=== PATIENT | female | born 1955 | race Caucasian/White ===

== ENCOUNTER → 2016-11-30 | Outpatient (CLI) | payer MEDICAID ==
[2016-11-30 10:48] LABS: Amylase 44 U/L (30-110)
[2016-11-30 11:01] LABS: Appearance,Urine Turbid (Clear); Bacteria,Urine Rare /hpf; Bilirubin,Urine Negative (Negative); Glucose,Urine (UA) 4+ (Negative); Ketones,Urine Negative (Negative); Leukocyte Esterase,Urine Large (Negative); Nitrite,Urine Positive (Negative); Particle Count 45365; Protein,Urine Trace (Negative); RBC,Urine 30 /hpf (0-5); Specific Gravity,Urine 1.009 (1.001-1.035); UA Billing (MACRO vs. MICRO) MICRO; Urobilinogen,Urine <2.0 mg/dL (<2.0); WBC,Urine >182 /hpf (0-5)
--- NOTE | 2016-12-08 16:01 | US ---
EXAMINATION TYPE: US liver DATE OF EXAM: 11/30/2016 9:33 AM COMPARISON: None CLINICAL HISTORY: 61-year-old female abnormal liver function. Abnormal liver function test; on Lipito r TECHNIQUE: Multiple sonographic images of the right upper quadrant are obtained. FINDINGS: EXAM MEASUREMENTS: Liver Length: 13.2 cm Gallbladder Wall: Surgically absent CBD: 0.2 cm Right Kidney: 9.4 x 5.2 x4.9 cm ANATOMY Pancreas: Hyperechoic, no masses seen Liver: No masses seen the liver shows a coarse echotexture Gallbladder: Surgically absent CBD: Within normal limits Right Kidney: No hydronephrosis or masses seen There is no ascites. IMPRESSION: Findings suggestive of fatty infiltration of the liver versus hepatocellular disease.
== END ==
LOC: RADUSWWP 09:02
PROVIDERS: ATTEND Family Medicine
DX: R94.5 Abnormal results of liver function studies (principal); Z88.8 Allergy status to other drugs, medicaments and biological substances
CPT/HCPCS: 36415; 76705; 81001; 82150; 83690

== ENCOUNTER → 2016-12-14 | Outpatient (CLI) | payer MEDICAID ==
[2016-12-16 09:09] LABS: Mis test requested (Non-blood) TP 24Hr Urine
== END | disposition home or self-care (01) ==
LOC: LABWHC1 10:44
PROVIDERS: ATTEND Family Medicine
DX: R73.9 Hyperglycemia, unspecified (principal); E11.65 Type 2 diabetes mellitus with hyperglycemia; R94.4 Abnormal results of kidney function studies; R94.5 Abnormal results of liver function studies
CPT/HCPCS: 81050; 82570; 84156

== ENCOUNTER → 2016-12-15 | Outpatient (CLI) | payer MEDICAID ==
--- NOTE | 2016-12-16 07:36 | US ---
EXAMINATION TYPE: US kidneys/renal and bladder DATE OF EXAM: 12/15/2016 4:10 PM COMPARISON: Abdomen ultrasound 30 November 2016 CLINICAL HISTORY: Abn Results Kidney Functions Studies R94.4. Patient states no symptoms, obese patie nt EXAM MEASUREMENTS: Right Kidney: 10.6 x 4.9 x 5.1 cm Left Kidney: 10.4 x 5.0 x 4.0 cm Right Kidney: There may be some cortical thinning Left Kidney: Possible some cortical thinning Bladder: limited visualization, not fully distended Bilateral Jets seen: no There is no evidence for hydronephrosis at this point in time. No nephrolithiasis is seen. No radha s are identified. The urinary bladder is decompressed. IMPRESSION: Findings may be indicative of medical renal disease
== END | disposition home or self-care (01) ==
LOC: RADUSMAIN 15:47
PROVIDERS: ATTEND Family Medicine
DX: R94.4 Abnormal results of kidney function studies (principal)
CPT/HCPCS: 76770

== ENCOUNTER → 2016-12-16 | Outpatient (CLI) | payer MEDICAID ==
[2016-12-16 09:32] LABS: ALT 82 U/L (9-52); AST 79 U/L (14-36); Alkaline Phosphatase 135 U/L (38-126); Amylase <30 U/L (30-110); Anion Gap 11 mmol/L; Bilirubin, Delta 0.4 mg/dL (0.0-0.2); Blood Urea Nitrogen 33 mg/dL (7-17); Calcium 9.4 mg/dL (8.4-10.2); Carbon Dioxide 25 mmol/L (22-30); Chloride 107 mmol/L (98-107); Cholesterol 225 mg/dL (<200); Glucose 128 mg/dL (74-99); HDL Cholesterol 50 mg/dL (40-60); Non-African American GFR(MDRD) 46 (>60 ml/min/1.73 sqM); Sodium 143 mmol/L (137-145); Total Bilirubin 0.6 mg/dL (0.2-1.3); Total Protein 6.2 g/dL (6.3-8.2); Triglycerides 142 mg/dL (<150)
== END | disposition home or self-care (01) ==
LOC: LABWHC1 08:51
PROVIDERS: ATTEND Family Medicine
DX: E11.65 Type 2 diabetes mellitus with hyperglycemia (principal); R94.4 Abnormal results of kidney function studies; R94.5 Abnormal results of liver function studies
CPT/HCPCS: 36415; 80053; 80061; 82150; 82248; 83690; 84681

== ENCOUNTER → 2017-01-11 | Outpatient (CLI) | payer MEDICAID ==
--- NOTE | 2017-01-11 10:49 | XR ---
EXAMINATION TYPE: XR Hip Complete RT DATE OF EXAM ORDERED: 01/11/2017 10:37 AM HISTORY: M25.551 pain in right hip. COMPARISON: None. FINDINGS: The right hip is minimally nonspherical. There is mild overgrowth of the acetabulum. No ac carlita lesion is seen. The joint spaces reasonably well-maintained. IMPRESSION: PLEASE CORRELATE CLINICALLY FOR FEMOROACETABULAR IMPINGEMENT SYNDROME
== END | disposition home or self-care (01) ==
LOC: RADXRMAIN 10:22
PROVIDERS: ATTEND Family Medicine
DX: M25.551 Pain in right hip (principal)
CPT/HCPCS: 73502

== ENCOUNTER → 2017-01-18 | Outpatient (CLI) | payer MEDICAID ==
--- NOTE | 2017-01-19 11:19 | MM ---
Reason for exam: screening (asymptomatic). Last mammogram was performed 1 year and 9 months ago. History: Patient is postmenopausal and had first child at age 33. Family history of breast cancer in sister at age 58. Benign cyst aspiration of the left breast. Benign excisional biopsy of the left breast. Physical Findings: A clinical breast exam by your physician is recommended on an annual basis and results should be correlated with mammographic findings. MG 3D Screening Mammo W/Cad Bilateral CC and MLO view(s) were taken. Prior study comparison: April 14, 2015, right breast MG work up mamm w CAD RT. April 08, 2015, bilateral MG screening mammo w CAD. There are scattered fibroglandular densities. There is no discrete abnormality. No significant changes when compared with prior studies. ASSESSMENT: Negative, BI-RAD 1 RECOMMENDATION: Routine screening mammogram of both breasts in 1 year.
== END | disposition home or self-care (01) ==
LOC: RADMAMWWP 10:13
PROVIDERS: ATTEND Obstetrics & Gynecology
DX: Z12.31 Encounter for screening mammogram for malignant neoplasm of breast (principal)
CPT/HCPCS: 77063; G0202

== ENCOUNTER → 2017-02-02 | Outpatient (CLI) | payer MEDICAID ==
[2017-02-02 14:39] LABS: Bilirubin, Delta 0.2 mg/dL (0.0-0.2); Calcium 9.8 mg/dL (8.4-10.2); Phosphorous 4.7 mg/dL (2.5-4.5); Potassium 5.7 mmol/L (3.5-5.1); Total Bilirubin 0.4 mg/dL (0.2-1.3); Total Protein 6.6 g/dL (6.3-8.2)
[2017-02-02 15:09] LABS: Basophils % (A) 1 %; CH 30.5; CHCM 31.9; Eosinophils # (A) 0.2 k/uL (0-0.7); Eosinophils % (A) 3 %; HCT 40.4 % (34.0-46.0); HDW 2.41; HGB 12.7 gm/dL (11.4-16.0); Luc # (Auto) 0.17; Luc % (Auto) 2; Lymphocytes # (A) 1.7 k/uL (1.0-4.8); Lymphocytes % (A) 23 %; MCH 30.3 pg (25.0-35.0); MCHC 31.6 g/dL (31.0-37.0); MCV 95.8 fL (80.0-100.0); Mean Platelet Volume 7.7; Monocytes # (A) 0.5 k/uL (0-1.0); Monocytes % (A) 7 %; Neutrophils # (A) 4.8 k/uL (1.3-7.7); Neutrophils % (A) 64 %; RBC 4.21 m/uL (3.80-5.40); WBC 7.5 k/uL (3.8-10.6); WBC (Perox) 7.75
== END | disposition home or self-care (01) ==
LOC: LABWHC1 14:01
PROVIDERS: ATTEND Family Medicine
DX: R94.4 Abnormal results of kidney function studies (principal)
CPT/HCPCS: 36415; 80053; 82150; 82248; 83690; 84100; 85025

== ENCOUNTER → 2017-04-06 | Outpatient (CLI) | payer MEDICAID ==
[2017-04-06 13:00] LABS: Basophils % (A) 1 %; CH 29.9; CHCM 31.5; Eosinophils # (A) 0.2 k/uL (0-0.7); Eosinophils % (A) 4 %; HCT 38.6 % (34.0-46.0); HGB 12.1 gm/dL (11.4-16.0); Luc % (Auto) 2; Lymphocytes # (A) 1.4 k/uL (1.0-4.8); Lymphocytes % (A) 24 %; MCHC 31.5 g/dL (31.0-37.0); MCV 95.4 fL (80.0-100.0); Mean Platelet Volume 7.4; Monocytes # (A) 0.4 k/uL (0-1.0); Monocytes % (A) 7 %; Neutrophils # (A) 3.7 k/uL (1.3-7.7); Neutrophils % (A) 63 %; RBC 4.05 m/uL (3.80-5.40); RDW 13.5 % (11.5-15.5); WBC 5.8 k/uL (3.8-10.6); WBC (Perox) 6.05
[2017-04-06 13:05] LABS: Calcium 9.1 mg/dL (8.4-10.2); Potassium 4.8 mmol/L (3.5-5.1); Total Bilirubin 0.5 mg/dL (0.2-1.3); Total Protein 6.7 g/dL (6.3-8.2)
== END | disposition home or self-care (01) ==
LOC: LABWHC1 12:36
PROVIDERS: ATTEND Family Medicine
DX: E11.65 Type 2 diabetes mellitus with hyperglycemia (principal); I10 Essential (primary) hypertension; R94.4 Abnormal results of kidney function studies; R94.5 Abnormal results of liver function studies; Z79.4 Long term (current) use of insulin
CPT/HCPCS: 36415; 80053; 83036; 85025

== ENCOUNTER → 2017-06-28 | Outpatient (CLI) | payer MEDICAID ==
[2017-06-28 10:41] LABS: EKG EKG PERFORMED
[2017-06-28 11:29] LABS: Basophils % (A) 1 %; CH 30.2; Eosinophils # (A) 0.2 k/uL (0-0.7); Eosinophils % (A) 4 %; HCT 36.7 % (34.0-46.0); HDW 2.46; Luc # (Auto) 0.09; Luc % (Auto) 2; Lymphocytes # (A) 1.4 k/uL (1.0-4.8); Lymphocytes % (A) 27 %; MCH 31.1 pg (25.0-35.0); MCHC 32.8 g/dL (31.0-37.0); MCV 94.8 fL (80.0-100.0); Mean Platelet Volume 7.4; Monocytes # (A) 0.4 k/uL (0-1.0); Monocytes % (A) 7 %; Neutrophils # (A) 2.9 k/uL (1.3-7.7); Neutrophils % (A) 59 %; Partial Thromboplastin Time 22.4 sec (22.0-30.0); Prothrombin Time 10.3 sec (9.0-12.0); RBC 3.87 m/uL (3.80-5.40); RDW 12.9 % (11.5-15.5); WBC (Perox) 4.96
[2017-06-28 11:48] LABS: ALT 63 U/L (9-52); AST 74 U/L (14-36); Alkaline Phosphatase 128 U/L (38-126); Anion Gap 8 mmol/L; Blood Urea Nitrogen 23 mg/dL (7-17); Calcium 8.9 mg/dL (8.4-10.2); Carbon Dioxide 24 mmol/L (22-30); Chloride 108 mmol/L (98-107); Glucose 98 mg/dL (74-99); Magnesium 1.7 mg/dL (1.6-2.3); Non-African American GFR(MDRD) 41 (>60 ml/min/1.73 sqM); Phosphorous 4.7 mg/dL (2.5-4.5); Potassium 4.7 mmol/L (3.5-5.1); Sodium 140 mmol/L (137-145); Total Bilirubin 0.4 mg/dL (0.2-1.3); Total Protein 5.9 g/dL (6.3-8.2); Uric Acid 7.2 mg/dL (3.7-7.4)
--- NOTE | 2017-06-28 12:02 | XR ---
EXAMINATION TYPE: XR chest 2V DATE OF EXAM: 06/28/2017 COMPARISON: NONE TECHNIQUE: PA and lateral views submitted. HISTORY: Presurgical FINDINGS: The lungs are clear and there is no pneumothorax, pleural effusion, or focal pneumonia. Hypertrophi c change of the spine. Arthropathy of the shoulder. IMPRESSION: 1. No acute process.
[2017-06-28 12:56] LABS: Appearance,Urine Clear (Clear); Bilirubin,Urine Negative (Negative); Glucose,Urine (UA) Negative (Negative); Ketones,Urine Negative (Negative); Leukocyte Esterase,Urine Negative (Negative); Nitrite,Urine Negative (Negative); Protein,Urine Negative (Negative); Specific Gravity,Urine 1.007 (1.001-1.035); UA Billing (MACRO vs. MICRO) CHEM; Urobilinogen,Urine <2.0 mg/dL (<2.0)
[2017-06-28 14:04] LABS: Hemoglobin A1C 6.2 % (4.2-6.1)
[2017-06-28 18:29] LABS: Urine Creatinine 29.9 mg/dL
== END | disposition home or self-care (01) ==
LOC: LABWHC1 10:24
PROVIDERS: ATTEND Internal Medicine
DX: Z01.810 Encounter for preprocedural cardiovascular examination (principal); Z01.811 Encounter for preprocedural respiratory examination; M48.06 Spinal stenosis, lumbar region; M51.16 Intervertebral disc disorders with radiculopathy, lumbar region; N18.3 Chronic kidney disease, stage 3 (moderate); D64.9 Anemia, unspecified; E83.39 Other disorders of phosphorus metabolism; E55.9 Vitamin D deficiency, unspecified; N39.0 Urinary tract infection, site not specified; Z01.82 Encounter for allergy testing; Z01.83 Encounter for blood typing; M10.9 Gout, unspecified
CPT/HCPCS: 36415; 71020; 80053; 81003; 82043; 82306; 82570; 83036; 83735; 83970; 84100; 84550; 85025; 85610; 85730; 87070; 93005

== ENCOUNTER → 2017-07-13 | Outpatient (CLI) | payer MEDICAID ==
--- NOTE | 2017-07-14 09:25 | ECHOF ---
Referral Reason:R01.1 Cardiac Murmur MEASUREMENTS -------- HEIGHT: 167.6 cm WEIGHT: 95.3 kg BP: IVSd: 1.2 cm (0.6 - 1.1) LVIDd: 3.6 cm (3.9 - 5.3) LVPWd: 1.4 cm (0.6 - 1.1) IVSs: 1.5 cm LVIDs: 2.0 cm LVPWs: 1.3 cm LAESV Index (A-L): 24.06 ml/m Ao Diam: 3.1 cm (2.0 - 3.7) AV Cusp: 1.6 cm (1.5 - 2.6) LA Diam: 3.5 cm (2.7 - 3.8) MV E Mando: 1.02 m/s MV DecT: 219 ms MV A Mando: 0.85 m/s MV E/A Ratio: 1.20 AR PHT: 792 ms RAP: 5.00 mmHg RVSP: 18.61 mmHg FINDINGS -------- Sinus rhythm. This was a technically adequate study. There is mild concentric left ventricular hypertrophy. Overall left ventricular systolic function is normal with, an EF between 55 - 60 %. The right ventricle is normal in size and function. Normal LA size by volume 22+/-6 ml/m2. The right atrium is normal in size. Aortic valve is trileaflet and is mildly thickened. There is mild aortic regurgitation. The aortic pressure half-time by doppler is 792ms. There is no evidence of aortic stenosis. The mitral valve leaflets are mildly thickened. There is trace to mild mitral regurgitation. Trace tricuspid regurgitation present. There is no evidence of pulmonary hypertension. The right ventricular systolic pressure, as measured by Doppler, is 18.61mmHg. The pulmonic valve was not well visualized. The aortic root size is normal. Normal inferior vena cava with normal inspiratory collapse consistent with estimated right atrial pressure of 5 mmHg. The pericardium is normal. There is no pericardial effusion. CONCLUSIONS -------- 1. Sinus rhythm. 2. There is trace to mild mitral regurgitation. 3. Trace tricuspid regurgitation present. 4. There is no evidence of pulmonary hypertension. 5. The right ventricular systolic pressure, as measured by Doppler, is 18.61mmHg. 6. The pulmonic valve was not well visualized. 7. The aortic root size is normal. 8. There is no pericardial effusion. 9. This was a technically adequate study. 10. There is mild concentric left ventricular hypertrophy. 11. Overall left ventricular systolic function is normal with, an EF between 55 - 60 %. 12. Normal LA size by volume 22+/-6 ml/m2. 13. Aortic valve is trileaflet and is mildly thickened. 14. There is mild aortic regurgitation. 15. The aortic pressure half-time by doppler is 792ms. 16. The mitral valve leaflets are mildly thickened. PROFILE SHAPER OPERATOR: Salvatore Smalls RDCS
== END | disposition home or self-care (01) ==
LOC: RADECHMAIN 16:32
PROVIDERS: ATTEND Family Medicine
DX: I08.0 Rheumatic disorders of both mitral and aortic valves (principal)
CPT/HCPCS: 93306

== ENCOUNTER → 2017-11-16 | Outpatient (CLI) | payer MEDICAID | END | disposition home or self-care (01) | LOC: LABWHC1 11:37 | PROVIDERS: ATTEND Family Medicine | DX: E11.21 Type 2 diabetes mellitus with diabetic nephropathy (principal) | CPT/HCPCS: 36415; 83036 ==

== ENCOUNTER → 2017-11-16 | Outpatient (CLI) | payer MEDICAID ==
--- NOTE | 2017-11-16 12:08 | CT ---
EXAMINATION TYPE: CT lumbar spine wo con DATE OF EXAM: 11/16/2017 COMPARISON: NONE HISTORY: 62-year-old female with pain, post fusion TECHNIQUE: Contiguous axial scanning of the lumbar spine without IV contrast. Coronal and sagittal re constructions performed. CT DLP: 962 mGycm Automated exposure control for dose reduction was used. FINDINGS: No prevertebral or paravertebral soft tissue abnormality is seen. There are postsurgical changes of L4-L5 posterior and interbody fusion with corresponding laminectomi es. Possible 7.2 cm craniocaudal by 2.4 cm wide fluid collection centered within the subcutaneous fat and extending down into the laminectomy bed. This spans from the L3 spinous process down to the L5-S1 on e level. Alignment is maintained and vertebral body heights are preserved. Metal hardware artifact limits assessment of the spinal canal at the L4-L5 level. Otherwise, no large focal disc herniation is identified by CT. No significant neural foraminal stenosis seen. IMPRESSION: 1. STATUS POST L4-L5 POSTERIOR AND INTERBODY FUSION WITH CORRESPONDING LAMINECTOMIES. 2. POSSIBLE 7.2 X 2.4 CM FLUID COLLECTION EXTENDING FROM L3 DOWN THROUGH L5-S1 CENTERED WITHIN THE AVILA BCUTANEOUS FAT AND LAMINECTOMY BED. POSTOPERATIVE SEROMA OR OTHER POST OPERATIVE FLUID COLLECTION ARE IN THE DIFFERENTIAL. CORRELATE FOR ANY INFECTIOUS SIGNS/SYMPTOMS TO EXCLUDE THE POSSIBILITY OF ABSCE SS. ALSO, CORRELATE TO TIME SINCE SURGERY. 3. NO SIGNIFICANT NEUROFORAMINAL STENOSIS.
== END ==
LOC: RADCTMAIN 11:07
PROVIDERS: ATTEND Specialist
DX: M43.26 Fusion of spine, lumbar region (principal)
CPT/HCPCS: 72131

== ENCOUNTER → 2018-03-05 | Outpatient (CLI) | payer BC ==
[2018-03-05 12:18] VITALS: BP 111/60; PULSE 90; RESP 18
--- NOTE | 2018-03-05 12:31 | P.PN ---
Progress Note - Text Progress Note Date: 03/05/18 Patient returns for followup for chronic back pain with radiation to L > RLE. Patient previously underwent LESI x 3 in early 2015 with our facility but has not returned since then, as she underwent spinal fusion in June 2017. Patient continues on no regular pain medications but was recently prescribed Valium for spasms. Patient denies adverse drug effects from medications. Today , pt denies new-onset weakness, bowel/bladder incontinence, or any other signs or symptoms of cauda equina syndrome. There are no signs of acute intoxication, and no indications of medication diversion or overuse. In addition to above, 13-point review of systems is also negative for chest pain , shortness of breath, changes in vision, changes in hearing, new onset weakness , abdominal pain, diarrhea, extreme fatigue, malaise, fever, skin changes, homicidal or suicidal ideation, or bowel or bladder incontinence. Vital Signs: Reviewed in EMR Gen: WDWN, AAOx3, NAD HEENT: NCAT, EOMI, hearing grossly normal Pulm: resp unlabored Abd: soft, NT, ND Neck: supple, trachea midline ROM in flexion lumbar spine: reduced ROM in extension lumbar spine: reduced Lumbar paravertebral tenderness: + Facet loading: + bilateral, R > L SI joint tenderness: + L > R Yvan's test: L > R Straight leg raise: neg Imaging: Computed tomography scan lumbar spine dated 11/08/2017 demonstrates postsurgical changes at the L4-L5 level with metallic hardware artifact. There is no large focal disc herniation. Assessment: 1. lumbar radiculitis 2. chronic pain syndrome 3. SIJ dysfunction Plan: 1. Explanation: Opioid and psychological risk scores were reviewed. Diagnoses , prognoses, and multiple treatment options including but not limited to physical therapy, interventional therapies, adjuvant medical therapies, narcotic medication therapies, and surgery were discussed with the patient and all questions were answered to the patient's satisfaction. 2. Opioid agreement: no opioids prescribed today 3. Counseling: The patient was counseled extensively on BODY MASS INDEX, EXERCISE. Specifically, the patient was instructed regarding the importance of smoking cessation, weight control, and exercise in the context of both chronic pain and overall health. 4. Procedures: left SIJ dysfunction 5. Consultations: None 6. Investigations: UDS not done today, MAPS queried and appropriate 7. Medications: none prescribed 8. Disposition: f/u for procedure as scheduled PQRS measures: 1-Patient's medications are documented in the chart. 2-Tobacco use is negative 3-Patient has not had a pneumococcal vaccine. 4-Advanced care planning discussed, patient unable to give. 5-Opioid contract NOT signed with the patient. 6-Pain positive, follow-up visit or procedure scheduled 7-Patient's blood pressure measured and documented, and patient will follow up with the primary care due to hypertension. 8-Patient's weight was measured, and body mass index ABOVE the normal limits, and counseling was done. Patient instructed to follow up with PCP. 9-Patient WAS NOT identified as an unhealthy alcohol user.
== END | disposition home or self-care (01) ==
LOC: PNWHC3 11:52
PROVIDERS: ATTEND Anesthesiology
DX: G89.4 Chronic pain syndrome (principal); M54.9 Dorsalgia, unspecified; M54.16 Radiculopathy, lumbar region; M53.88 Other specified dorsopathies, sacral and sacrococcygeal region; Z98.1 Arthrodesis status; Z79.891 Long term (current) use of opiate analgesic
CPT/HCPCS: 99211

== ENCOUNTER → 2018-03-09 | Outpatient (CLI) | payer BC ==
--- NOTE | 2018-03-09 15:49 | XR ---
Left hip HISTORY: Left hip pain, history hip dysplasia 2 views of the left hip No comparisons Postop changes noted in the lumbar spine. Left hip shows normal bone mineralization, joint spaces, an d alignment. No fracture or dislocation. IMPRESSION: Normal left hip.
== END ==
LOC: RADXRMAIN 12:07
PROVIDERS: ATTEND Anesthesiology
DX: M16.31 Unilateral osteoarthritis resulting from hip dysplasia, right hip (principal)
CPT/HCPCS: 73502

== ENCOUNTER 2018-03-23 15:27 | Emergency (ER) | payer BC ==
[2018-03-23 16:05] VITALS: BP 159/89; PULSE 118; RESP 18; TEMP 99
--- NOTE | 2018-03-23 16:20 | ED ---
General Adult HPI - General Stated complaint: fall Time Seen by Provider: 03/23/18 15:42 Source: patient, RN notes reviewed Mode of arrival: ambulatory Limitations: no limitations - History of Present Illness Initial comments: 62-year-old female presents to the emergency department for a chief complaint of head injury 1 hour. Patient states she has physical therapy for a left frozen shoulder. She states she was walking into physical therapy when she opened the door the wind gusted and threw her into a wall where she hit her head. She then fell onto the ground and hit her buttock on the ground. Patient states she had a spinal fusion about 8 months ago in the lumbar spine. Patient states her low back is hurting. Patient denies any visual changes. She does admit to a moderate headache. Patient denies any loss of consciousness confusion nausea or vomiting. Patient denies being on blood thinners. 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 Patient has no other complaints at this time including SOB, CP, abdominal pain, nausea or vomiting. - Related Data Home Medications Medication Instructions Recorded Confirmed metFORMIN HCL 1,000 mg PO BID 09/18/16 03/23/18 Insulin Aspart [NovoLOG Flexpen] See Protocol SQ ACHS 12/22/16 03/23/18 Insulin Glargine [Lantus] 30 units SQ HS 12/22/16 03/23/18 Lisinopril [Zestril] 5 mg PO HS 12/22/16 03/23/18 Diazepam [Valium] 1 tab PO HS PRN 03/05/18 03/23/18 Lidocaine 5% Patch [Lidoderm] 1 patch TOPICAL DAILY 03/05/18 03/23/18 Acetaminophen-Codeine 300-30mg 1 - 2 tab PO Q4-6H PRN 03/22/18 03/23/18 [Tylenol w/codeine #3] Insulin Aspart [Novolog Flexpen] 5 unit SQ ACHS 03/23/18 03/23/18 Magnesium 200 mg PO HS 03/23/18 03/23/18 Allergies Allergy/AdvReac Type Severity Reaction Status Date / Time metoclopramide HCl Allergy HAD Verified 03/23/18 16:04 [From Reglan] IV-CAUSED TARDIVE DYSKINESIA sulfamethoxazole AdvReac CANNOT Verified 03/23/18 16:04 [From Bactrim] TAKE WITH METFORMIN PER PT/PER PHARMACIST trimethoprim [From Bactrim] AdvReac CANNOT Verified 03/23/18 16:04 TAKE WITH METFORMIN PER PT/PER PHARMACIST Review of Systems ROS Statement: Those systems with pertinent positive or pertinent negative responses have been documented in the HPI. ROS Other: All systems not noted in ROS Statement are negative. Past Medical History Past Medical History: Diabetes Mellitus, Hyperlipidemia, Pulmonary Embolus (PE) Additional Past Medical History / Comment(s): P.E. AT AGE 20 History of Any Multi-Drug Resistant Organisms: None Reported Past Surgical History: Section, Cholecystectomy, Orthopedic Surgery Additional Past Surgical History / Comment(s): PAIN CLINIC PROCEDURES, SHAVONNE TRIGGER RELEASE THUMB,RT KNEE SCOPE. BILAT VARICOSE VEIN STRIPPING AGE 29, spinal fusion Past Anesthesia/Blood Transfusion Reactions: No Reported Reaction Past Psychological History: No Psychological Hx Reported Smoking Status: Never smoker Past Alcohol Use History: Unable to Obtain Past Drug Use History: None Reported - Past Family History Sister(s) Family Medical History: Cancer Mother Family Medical History: No Reported History General Exam Limitations: no limitations General appearance: alert, in no apparent distress Head exam: Present: atraumatic, normocephalic, normal inspection Eye exam: Present: normal appearance, PERRL, EOMI. Absent: scleral icterus, conjunctival injection, periorbital swelling Pupils: Present: normal accommodation ENT exam: Present: normal exam, normal oropharynx, mucous membranes moist, TM's normal bilaterally, other (No segal sign, no raccoon eyes) Neck exam: Present: normal inspection, tenderness (Tenderness to the right side of the neck. No tenderness along the C-spine.). Absent: meningismus, full ROM (Patient does have some limited twisting of the neck due to "tightness"), lymphadenopathy Respiratory exam: Present: normal lung sounds bilaterally. Absent: respiratory distress, wheezes, rales, rhonchi, stridor Cardiovascular Exam: Present: regular rate, normal rhythm, normal heart sounds. Absent: systolic murmur, diastolic murmur, rubs, gallop, clicks Back exam: Present: full ROM (full flexion and extension.), tenderness (Mild lumbar and sacral tenderness), vertebral tenderness (lower lumber spinal tenderness.). Absent: paraspinal tenderness Neurological exam: Present: alert, oriented X3, CN II-XII intact, other (GCS 15) Psychiatric exam: Present: normal affect, normal mood Course Vital Signs 03/23/18 16:00 Temperature 99 F Pulse Rate 118 H Respiratory 18 Rate Blood Pressure 159/89 O2 Sat by Pulse 95 Oximetry Medical Decision Making - Medical Decision Making 62-year-old female presents to the emergency department for chief complaint of head injury 1 hour. Patient states she was walking into physical therapy when the wind lung the door open in through her into the wall. Patient had her head on the wall. Patient also fell on her tailbone. On exam patient does have some tenderness in her right lateral neck, no C-spine tenderness. No focal neuro deficits. GCS 15. Lumbosacral spine is slightly tender to palpation. CT brain and C-spine noncontrast was ordered as well as x-ray of the lumbosacral spine. CT brain shows no acute intracranial hemorrhage or midline shift. There is a small high right occipital scalp hematoma. CT C-spine shows no acute fracture or dislocation. Lumbosacral spine x-ray shows no acute fracture or dislocation in the lumbar spine. L4-L5 shows artifical disc material. Patient was given a Tylenol 3 in the emergency department patient states her headache is much better and she is feeling ready to go home. Patient is sitting up in bed at this point. She states she will not be driving as I educated her about not driving while taking Tylenol 3. Patient states she has regular Tylenol at home and does not want any other pain prescriptions. She will follow up with primary care in 1-2 days. She will return to the emergency Department if she has any worsening symptoms such as severe headache, nausea or vomiting, or confusion. Patient is a registered nurse for 40 years and is aware of these signs and agrees to come back if she notices any. Disposition Clinical Impression: Head injury Disposition: HOME SELF-CARE Condition: Good Instructions: Head Injury (ED) Additional Instructions: Please return to the emergency department if you notice any nausea or vomiting, confusion, worsening headache, or any other worsening symptoms. Otherwise follow-up with primary care provider in one to 2 days. Take the Tylenol you already have for pain relief as discussed. Is patient prescribed a controlled substance at d/c from ED?: No Referrals: Bradley Orozco MD [Primary Care Provider] - 1-2 days Time of Disposition: 17:35
[2018-03-23] MEDS ORDERED: Acetaminophen-Codeine 300-30mg TAB PO STA (16:27)
--- NOTE | 2018-03-23 16:28 | CT ---
EXAMINATION TYPE: CT brain cspine wo con DATE OF EXAM: 03/23/2018 COMPARISON: NONE HISTORY: Fall today with posterior head injury and neck pain. CT DLP: 1615 mGycm. Automated Exposure Control for Dose Reduction was Utilized. TECHNIQUE: CT scan of the head and cervical spine are performed without contrast. FINDINGS: There is no acute intracranial hemorrhage, mass effect, or midline shift identified. The ventricles and sulci are within normal limits in size. The globes are intact and the visualized sin uses are clear. There is small right occipital acute scalp hematoma axial image 39. Adjacent calvariu m is intact Cervical spine is visualized in its entirety from C1 through upper thoracic levels and demonstrates s traightened alignment without evidence of acute fracture or dislocation. Prevertebral soft tissue ap pears within normal limits. The C1-C2 articulation is within normal limits on the coronal images. Vertebral body heights are maintained. There is moderate disc space narrowing and mild to moderate sp urring at C5-C6 level. Posterior spur disc complex effaces anterior thecal sac on sagittal images con firmed on axial image 59 also causing asymmetric mild to moderate left-sided neural foraminal narrowi ng. Other axial levels are unremarkable. Thyroid gland is within normal limits. Lung apices are clear . IMPRESSION: 1. There is no acute fracture or dislocation evident in the cervical spine. 2. No acute intracranial hemorrhage or midline shift is seen. There is small high right occipital acu te scalp hematoma.
--- NOTE | 2018-03-23 16:44 | XR ---
EXAMINATION TYPE: XR lumbosacral spine min 4V DATE OF EXAM: 03/23/2018 CLINICAL HISTORY: Fall injury with pain. TECHNIQUE: Frontal, lateral, and oblique images of the lumbar spine are obtained. COMPARISON: CT lumbar spine November 16, 2017 FINDINGS: There are 5 lumbar type vertebral bodies identified. The lumbar spine shows satisfactory alignment without evidence of acute fracture or dislocation. Posterior interpedicular rods and screws transfix L4-L5 levels with artificial disc material. There is spinous process resection of the L5 an d inferior portion L4. There is persistent mild disc space narrowing L3-L4 level. There is mild to mo derate anterior spurring upper to mid lumbar spine. Oblique images are within normal limits. Overlyin g vascular calcification is present. IMPRESSION: No acute fracture or dislocation is seen in the lumbar spine.
== END 2018-03-23 17:43 | disposition home or self-care (01) ==
LOC: EC 15:27
DX: S00.03XA Contusion of scalp, initial encounter (principal); R40.2412 Glasgow coma scale score 13-15, at arrival to emergency department; R59.0 Localized enlarged lymph nodes; M54.5 Low back pain; M75.02 Adhesive capsulitis of left shoulder; E11.9 Type 2 diabetes mellitus without complications; Z79.4 Long term (current) use of insulin; Z79.899 Other long term (current) drug therapy; Z88.1 Allergy status to other antibiotic agents; Z88.8 Allergy status to other drugs, medicaments and biological substances; Z98.1 Arthrodesis status; X39.8XXA Other exposure to forces of nature, initial encounter; Y93.89 Activity, other specified; Y92.89 Other specified places as the place of occurrence of the external cause
CPT/HCPCS: 70450; 72110; 72125; 99284

== ENCOUNTER 2018-03-27 08:58 | Day surgery (SDC) | payer BC ==
[2018-03-22 13:53] VITALS: BMI 33.0
[2018-03-27] MEDS ORDERED: LACTATED RINGERS 1,000 ML IV SCH (09:15)
[2018-03-27 10:19] VITALS: TEMP 98.1
[2018-03-27] MEDS ORDERED: LIDOCAINE 1% 20 ML VIAL (10MG/ML) FOR IV START INTRADERMA ONE (10:29)
--- NOTE | 2018-03-27 11:22 | P.PCN ---
Date of Procedure: 03/27/18 Surgeon: Luiz Duran Pathology: none sent Condition: stable Disposition: PACU Description of Procedure: PREOPERATIVE DIAGNOSIS: 1-Bilateral sacroiliitis. 2 Lumbar DDD POSTOPERATIVE DIAGNOSIS:. 1-Bilateral sacroiliitis. 2 Lumbar DDD PROCEDURES: Left sacroiliac joint steroid injection with fluoroscopic guidance ANESTHESIA: Local with 1% lidocaine; conscious sedation EBL: Minimal. PROCEDURE INDICATIONS: This patient with a history of low back pain secondary to sacroiliitis and lumbar DDD unresponsive to conservative management. Patient also had recent fall and has severe tailbone pain today. No use of blood thinners. PROCEDURE DESCRIPTION: The patient was seen and identified in the preoperative area. Risks, benefits, complications, and alternatives were discussed with the patient (including but not limited to incomplete pain relief, bleeding, infection, nerve damage, and allergies to medications), the patient agreed to proceed with the procedure and signed the consent after all questions were answered. Patient was taken to the OR and time out was completed to verify proper patient , position, laterality of pain, and allergies. Pt was placed in the prone position and a pillow was placed under the abdomen to reduce lumbar lordosis. The lumbosacral area was prepped and draped in the usual sterile fashion. Critical pause was taken. Vital signs were closely monitored during the procedure. The fluoroscopic camera was placed in contralateral oblique view and left sacroiliac joint lower pole was identified. After local infiltration with 1% lidocaine 2 ml, Subsequently, a 22-gauge 3.5 inch spinal needle was introduced into the posteroinferior aspect of the left sacroiliac joint under direct fluoroscopic visualization. Subsequently, 4 ml of a solution of a total of 4 ml solution containing total 3 mL of 0.5% preservative-free bupivicaine mixed with 40 mg of Kenalog was injected after negative aspiration for CSF, blood, and air and negative for paresthesia. Needle was withdrawn intact. Skin was cleansed, and bandages were applied. COMPLICATIONS: None. COMMENTS: DISPOSITION / PLANS: The patient was placed in a supine position and transferred to the recovery area in a stable condition for observation and was discharged from the recovery room after meeting discharge criteria. Home discharge instructions given to the patient by the staff. The patient was reexamined prior to discharge and there were no issues. After the procedure, I gave patient a Medrol dose kristina for her acute tailbone pain and we will schedule ganglion of impar block for next week. Patient states that she will contact her PCP regarding potential elevation in blood sugar given steroid injection today, dose kristina, and injection scheduled for next week.
--- NOTE | 2018-03-27 11:31 | FL ---
EXAMINATION TYPE: FL guided pain mgmt statistic DATE OF EXAM: 03/27/2018 HISTORY: Flouroscopy time 8 seconds of fluoroscopy provided. IMPRESSION: 1. Fluoroscopy time.
[2018-03-27 11:50] VITALS: BP 161/78; PULSE 93; RESP 20
[2018-03-27] MEDS ORDERED: IV FLUID CONTINUATION 1,000 ML IV ONE (11:50)
== END 2018-03-27 11:58 | disposition home or self-care (01) ==
LOC: ORPAIN 08:58
PROVIDERS: ATTEND Anesthesiology
DX: G89.4 Chronic pain syndrome (principal); M46.1 Sacroiliitis, not elsewhere classified; M51.16 Intervertebral disc disorders with radiculopathy, lumbar region; Z79.899 Other long term (current) drug therapy; Z88.2 Allergy status to sulfonamides; Z88.8 Allergy status to other drugs, medicaments and biological substances
CPT/HCPCS: 27096; J2250; J3301; J3010; Q9966

== ENCOUNTER → 2018-04-24 | Outpatient (CLI) | payer BC ==
--- NOTE | 2018-04-24 16:34 | CT ---
EXAMINATION TYPE: CT pelvis wo con DATE OF EXAM: 04/24/2018 COMPARISON: NONE HISTORY: S/P spinal fusion, stabbing pain in coccyx area CT DLP: 926 mGycm Automated exposure control for dose reduction was used. TECHNIQUE: Axial images 5 mm thick sections. Reconstructed images in the coronal plane. FINDINGS: Femoral heads articulate with the acetabulum. Mild joint space narrowing is present. Pedicle screws a re evident L4-L5. The right L5 pedicle screw extends out of the anterior cortical margin of the verte bral body. Series 4 image 34. Correlate for right side pain. Disc spacer is present L4-5. Mild narrow ing of the L5-S1 disc height may be present. Sacroiliac joint degenerative change. Sacrum: The sacrum appears intact. No acute fractures are evident. No suspicious osseous abnormality is evident. Intra-abdominal soft tissues appear unremarkable. The appendix is normal. Loops of bowel are unremark able. The inferior portions of the kidneys visualized are unremarkable. Vascular calcification is wit hin the aorta. Inferior vena cava is unremarkable. Urinary bladder is normal. Uterus and adnexal hina ons appear normal. IMPRESSION: 1. THERE IS SOME EXTENSION OF THE RIGHT L5 PEDICLE SCREW OUT THROUGH THE ANTERIOR CORTEX OF THE VERTE BRAL BODY. THIS IS OF UNCERTAIN CLINICAL SIGNIFICANCE. 2. SUSPICIOUS ABNORMALITY TO ACCOUNT FOR THE PATIENT'S PAIN IS NOT OTHERWISE IDENTIFIED.
== END | disposition home or self-care (01) ==
LOC: RADCTMAIN 12:53
PROVIDERS: ATTEND Specialist
DX: M53.3 Sacrococcygeal disorders, not elsewhere classified (principal)
CPT/HCPCS: 72192

== ENCOUNTER → 2018-05-15 | Outpatient (CLI) | payer BC ==
--- NOTE | 2018-05-15 11:49 | CT ---
EXAMINATION TYPE: CT pelvis wo con DATE OF EXAM: 05/15/2018 COMPARISON: CT pelvis April 24, 2018 HISTORY: Rescanned for Sacrococcygeal disorders CT DLP: 798.4 mGycm Automated exposure control for dose reduction was used. FINDINGS: Repeat CT pelvis is performed due to ordering physician request for sagittal reconstructed images whi ch were not performed on original study. Patient is not to be charged for current exam. Please refer to original CT report for complete details on findings. No suspicious new findings are identified on today's study. IMPRESSION: ABOVE
== END | disposition home or self-care (01) ==
LOC: RADCTMAIN 11:19
PROVIDERS: ATTEND Specialist
DX: M53.3 Sacrococcygeal disorders, not elsewhere classified (principal)

== ENCOUNTER → 2019-01-11 | Outpatient (CLI) | payer BC ==
[2019-01-11 12:18] LABS: HCT 42.3 % (34.0-46.0); HGB 12.9 gm/dL (11.4-16.0); Hypochromasia Slight; MCH 29.6 pg (25.0-35.0); MCHC 30.5 g/dL (31.0-37.0); MCV 97.1 fL (80.0-100.0); Mean Platelet Volume 7.9; Platelet Count 206 k/uL (150-450); RBC 4.36 m/uL (3.80-5.40); RDW 13.4 % (11.5-15.5); WBC 6.7 k/uL (3.8-10.6)
[2019-01-11 13:39] LABS: Appearance,Urine Cloudy (Clear); Bacteria,Urine Occasional /hpf; Bilirubin,Urine Negative (Negative); Blood,Urine Negative (Negative); Color,Urine Yellow; Glucose,Urine (UA) 4+ (Negative); Ketones,Urine Negative (Negative); Leukocyte Esterase,Urine Large (Negative); Mucus,Urine Rare /hpf; Nitrite,Urine Negative (Negative); PH, Urine 5.5 (5.0-8.0); Protein,Urine Negative (Negative); Specific Gravity,Urine 1.008 (1.001-1.035); Squamous Epithelial Cell,Urine 6 /hpf (0-4); Urobilinogen,Urine <2.0 mg/dL (<2.0); WBC,Urine 44 /hpf (0-5)
[2019-01-11 17:12] LABS: Iron Saturation 14.29 (12.00-45.00)
[2019-01-11 17:19] LABS: Parathyroid Hormone Intact 82.8 pg/mL (14.0-72.0)
[2019-01-11 17:25] LABS: Vitamin D 25 Hydroxy 15.5 ng/mL (30.0-100.0)
[2019-01-11 17:39] LABS: Albumin/Globulin Ratio 1.9 (1.60-3.17); Anion Gap 6.8 mmol/L (4.00-12.00); Calcium 8.9 mg/dL (8.7-10.3); Carbon Dioxide 23.2 mmol/L (21.6-31.8); Globulin 2.1 g/dL (1.6-3.3); Magnesium 1.7 mg/dL (1.5-2.4); Phosphorus 3.6 mg/dL (2.4-5.1); Total Bilirubin 0.3 mg/dL (0.3-1.2); Total Protein 6.1 g/dL (6.2-8.2); Uric Acid 6.6 mg/dL (2.9-7.7)
== END | disposition home or self-care (01) ==
LOC: LABWHC1 11:08
PROVIDERS: ATTEND Internal Medicine
DX: N39.0 Urinary tract infection, site not specified (principal); N18.3 Chronic kidney disease, stage 3 (moderate); D63.1 Anemia in chronic kidney disease; E21.3 Hyperparathyroidism, unspecified; E55.9 Vitamin D deficiency, unspecified; M10.9 Gout, unspecified
CPT/HCPCS: 36415; 80053; 81001; 82043; 82306; 82570; 82728; 83540; 83550; 83735; 83970; 84100; 84550; 85027

== ENCOUNTER → 2019-03-29 | Outpatient (CLI) | payer BC ==
--- NOTE | 2019-03-29 12:59 | XR ---
EXAM TYPE: LUMBAR SPINE X RAY SERIES COMPARISON: 03/23/2018 HISTORY: Pain TECHNIQUE: 4 views are submitted. FINDINGS: There are 5 lumbar type vertebral bodies identified. The lumbar spine shows satisfactory alignment wi thout evidence of acute fracture or dislocation. Posterior interpedicular rods and screws transfix L4 -L5 levels with artificial disc material. Multilevel mild degenerative disc disease and hypertrophic spurring noted. There is mild to moderate anterior spurring upper to mid lumbar spine. Overlying vascular calcification is present. IMPRESSION: 1. Stable postsurgical changes.
== END | disposition home or self-care (01) ==
LOC: RADXRMAIN 12:29
PROVIDERS: ATTEND Family Medicine
DX: M43.26 Fusion of spine, lumbar region (principal); M25.78 Osteophyte, vertebrae; Z98.890 Other specified postprocedural states
CPT/HCPCS: 72110

== ENCOUNTER → 2019-04-01 | Outpatient (CLI) | payer BC ==
[2019-04-01 16:31] LABS: Basophils % (A) 1 %; Eosinophils # (A) 0.2 k/uL (0-0.7); Eosinophils % (A) 2 %; HCT 39.7 % (34.0-46.0); HGB 12.3 gm/dL (11.4-16.0); Lymphocytes # (A) 1.4 k/uL (1.0-4.8); Lymphocytes % (A) 17 %; MCH 29.1 pg (25.0-35.0); MCHC 31.1 g/dL (31.0-37.0); MCV 93.4 fL (80.0-100.0); Mean Platelet Volume 7.9; Monocytes # (A) 0.5 k/uL (0-1.0); Monocytes % (A) 6 %; Neutrophils # (A) 5.8 k/uL (1.3-7.7); Neutrophils % (A) 73 %; Platelet Count 232 k/uL (150-450); RBC 4.24 m/uL (3.80-5.40); RDW 14.1 % (11.5-15.5); WBC 7.9 k/uL (3.8-10.6)
[2019-04-01 16:36] LABS: Appearance,Urine Clear (Clear); Bilirubin,Urine Negative (Negative); Blood,Urine Negative (Negative); Color,Urine Light Yellow; Glucose,Urine (UA) Negative (Negative); Ketones,Urine Negative (Negative); Leukocyte Esterase,Urine Small (Negative); Mucus,Urine Rare /hpf; Nitrite,Urine Negative (Negative); PH, Urine 5.5 (5.0-8.0); Protein,Urine Negative (Negative); RBC,Urine 1 /hpf (0-5); Specific Gravity,Urine 1.015 (1.001-1.035); Squamous Epithelial Cell,Urine <1 /hpf (0-4); Urobilinogen,Urine <2.0 mg/dL (<2.0); WBC,Urine 5 /hpf (0-5)
[2019-04-01 23:44] LABS: Iron Saturation 13.29 (12.00-45.00)
[2019-04-02 00:14] LABS: Albumin 3.8 g/dL (3.80-4.90); Albumin/Globulin Ratio 2.38 (1.60-3.17); Anion Gap 8.2 mmol/L (4.00-12.00); Calcium 8.4 mg/dL (8.7-10.3); Carbon Dioxide 23.8 mmol/L (21.6-31.8); Globulin 1.6 g/dL (1.6-3.3); Magnesium 1.8 mg/dL (1.5-2.4); Phosphorus 5.1 mg/dL (2.4-5.1); Potassium 5.1 mmol/L (3.5-5.5); Total Bilirubin 0.2 mg/dL (0.3-1.2); Total Protein 5.4 g/dL (6.2-8.2); Uric Acid 7.9 mg/dL (2.9-7.7)
[2019-04-02 00:21] LABS: Parathyroid Hormone Intact 101.9 pg/mL (14.0-72.0)
== END | disposition home or self-care (01) ==
LOC: LABWHC1 15:34
PROVIDERS: ATTEND Nurse Practitioner Family
DX: N39.0 Urinary tract infection, site not specified (principal); M10.9 Gout, unspecified; R80.9 Proteinuria, unspecified; N18.3 Chronic kidney disease, stage 3 (moderate); E61.1 Iron deficiency; N25.81 Secondary hyperparathyroidism of renal origin; E55.9 Vitamin D deficiency, unspecified
CPT/HCPCS: 36415; 80053; 81001; 82043; 82306; 82570; 82728; 83540; 83550; 83735; 83970; 84100; 84550; 85025

== ENCOUNTER → 2019-04-17 | Outpatient (CLI) | payer BC ==
--- NOTE | 2019-04-17 11:50 | MR ---
EXAMINATION TYPE: MR lumbar spine wo/w con DATE OF EXAM: 04/17/2019 COMPARISON: Plain film 03/29/2019, prior lumbar MRI 10/26/2015, CT lumbar spine 11/16/2017 HISTORY: Osteophyte, vertebrae TECHNIQUE: Multiplanar, multisequence images of the lumbar spine were acquired utilizing 10 mL intravenous Gadav ist gadolinium contrast. L1-L2: Normal disc appearance without desiccation. No herniation, protrusion or disc bulging. No ca nal stenosis is present. Foramina are patent bilaterally. L2-L3: There is a circumferential disc bulge which extends towards the right causing mild foraminal e ncroachment. No significant central stenosis. L3-L4: Posterior circumferential disc bulge contacts the anterior thecal sac causes some mass effect. There is hypertrophic changes present with ligamentum flavum causing local mass effect and resulting in a trefoil appearance of the thecal sac. No significant foraminal encroachment. L4-L5: Minimal posterior disc bulge, no significant spinal stenosis. No significant foraminal encroac hment. Some mild enhancement of the posterior aspect of the disc is likely postoperative. L5-S1: Small broad-based posterior disc bulge is present. Some enhancement of the posterior aspect of the disc is noted, there may be a small annular tear, some focal increased signal noted on T2-weight ed sequences. No significant spinal stenosis or foraminal encroachment. Lumbar segments are intact. No paraspinal masses are identified. Conus medullaris has a normal appe arance. Patient is status post posterior lumbar fusion at L4-5 with intervertebral spacing block. Flores inectomies present at L5. Posterior to L4-5 surgical site and thecal sac there is T1 intermediate, T2 hyperintense signal present with some enhancement of the surrounding wall at the level of the wharf helper ior aspect of the thecal sac where the collection measures approximately 2.7 cm in transverse dimensi on by 1.2 cm in AP dimension by 2.6 cm in cephalad to caudal dimension, there are some internal septa tions. Within the subcutaneous fat superficial to the transverse process of L4 there is an additional collection measuring 3 cm in cephalad to caudal dimension by 2 cm in AP dimension by 1.8 cm in trans verse dimension with similar characteristics. There is artifact at this level however the collections may communicate. Enhancement of granulation tissue. To be present along the paraspinal musculature a nd surgical bed. Cervical vertebral bodies show preserved height and alignment. There is multilevel s pondylosis. Minimal endplate discogenic marrow signal changes are present. Loss of disc height and si gnal at intervertebral levels compatible disc desiccation and degenerative disc disease. IMPRESSION: Indeterminate postoperative fluid signal posterior to the thecal sac at L4-5 extending to the soft ti ssues may represent seroma or old hematoma, correlate to exclude infection. Postop changes. Some dege nerative changes, facet arthropathy resulting in a trefoil appearance of the thecal sac at L3-4. Dege nerative disc disease as described.
== END | disposition home or self-care (01) ==
LOC: RADMRIMAIN 08:38
PROVIDERS: ATTEND Nurse Practitioner Women's Health
DX: M51.36 Other intervertebral disc degeneration, lumbar region (principal); M47.816 Spondylosis without myelopathy or radiculopathy, lumbar region; M46.96 Unspecified inflammatory spondylopathy, lumbar region; Z98.890 Other specified postprocedural states
CPT/HCPCS: 72158; A9585

== ENCOUNTER → 2019-07-25 | Outpatient (CLI) | payer MEDICARE ==
[2019-07-25 11:33] LABS: HCT 37.6 % (34.0-46.0); HGB 12.1 gm/dL (11.4-16.0); MCH 30.4 pg (25.0-35.0); MCHC 32.3 g/dL (31.0-37.0); MCV 94.4 fL (80.0-100.0); Mean Platelet Volume 8.1; Platelet Count 206 k/uL (150-450); RBC 3.98 m/uL (3.80-5.40); RDW 14.4 % (11.5-15.5); WBC 5.7 k/uL (3.8-10.6)
[2019-07-25 11:45] LABS: Appearance,Urine Cloudy (Clear); Bacteria,Urine Many /hpf; Bilirubin,Urine Negative (Negative); Blood,Urine Negative (Negative); Color,Urine Yellow; Glucose,Urine (UA) Negative (Negative); Ketones,Urine Trace (Negative); Leukocyte Esterase,Urine Large (Negative); Mucus,Urine Rare /hpf; Nitrite,Urine Positive (Negative); PH, Urine 5.5 (5.0-8.0); Protein,Urine Negative (Negative); RBC,Urine 5 /hpf (0-5); Specific Gravity,Urine 1.011 (1.001-1.035); Squamous Epithelial Cell,Urine 5 /hpf (0-4); Urobilinogen,Urine <2.0 mg/dL (<2.0); WBC,Urine 42 /hpf (0-5)
[2019-07-25 16:15] LABS: Iron Saturation 17.43 (12.00-45.00)
[2019-07-25 16:23] LABS: Vitamin D 25 Hydroxy 35.6 ng/mL (30.0-100.0)
[2019-07-25 16:25] LABS: African American GFR (CKD) 42.2 (60.0-200.0); Albumin 3.7 g/dL (3.80-4.90); Albumin/Globulin Ratio 2.18 (1.60-3.17); Anion Gap 6.7 mmol/L (4.00-12.00); Calcium 8.3 mg/dL (8.7-10.3); Carbon Dioxide 24.3 mmol/L (21.6-31.8); Globulin 1.7 g/dL (1.6-3.3); Magnesium 1.7 mg/dL (1.5-2.4); Phosphorus 3.5 mg/dL (2.4-5.1); Potassium 4.7 mmol/L (3.5-5.5); Total Bilirubin 0.3 mg/dL (0.3-1.2); Total Protein 5.4 g/dL (6.2-8.2); Uric Acid 7.2 mg/dL (2.9-7.7)
== END | disposition home or self-care (01) ==
LOC: LABWHC1 10:46
PROVIDERS: ATTEND Nurse Practitioner Family
DX: E79.0 Hyperuricemia without signs of inflammatory arthritis and tophaceous disease (principal); N25.81 Secondary hyperparathyroidism of renal origin; E55.9 Vitamin D deficiency, unspecified; E61.1 Iron deficiency; D63.1 Anemia in chronic kidney disease; N18.3 Chronic kidney disease, stage 3 (moderate); E55.0 Rickets, active; M10.9 Gout, unspecified
CPT/HCPCS: 36415; 80053; 81001; 82043; 82306; 82570; 82728; 83540; 83550; 83735; 83970; 84100; 84550; 85027

== ENCOUNTER → 2019-08-14 | Outpatient (CLI) | payer MEDICARE ==
--- NOTE | 2019-08-14 15:19 | NM ---
EXAMINATION TYPE: NM bone scan whole body DATE OF EXAM: 08/14/2019 COMPARISON: X-ray 03/29/2019 HISTORY: Pain Delayed whole-body scanning was performed following the injection of 22.7 mCi Tc 99m MDP. Images acq uired 3.25 hours post injection. FINDINGS: There is mild intensity uptake seen throughout the thoracic and lower lumbar spine likely degenerativ e. Abnormal uptake involving the feet, knees and shoulders likely is post arthritic. IMPRESSION: 1. Mild intensity uptake involving the lower lumbar spine likely corresponds with postsurgical change s. Abnormal uptake in the mid to lower thoracic spine most likely is degenerative. If there is concer n for discitis this would require postcontrast MRI for further evaluation.
== END | disposition home or self-care (01) ==
LOC: RADNMMAIN 09:54
DX: M47.817 Spondylosis without myelopathy or radiculopathy, lumbosacral region (principal); R94.8 Abnormal results of function studies of other organs and systems
CPT/HCPCS: 78306; A9503

== ENCOUNTER → 2019-08-28 | Outpatient (CLI) | payer MEDICARE ==
[2019-08-28 11:44] VITALS: BP 152/68; PULSE 72; RESP 18
--- NOTE | 2019-08-29 13:28 | P.PAINPG ---
Subjective Progress Note Date: 08/28/19 Patient returns for followup for chronic back pain. She was last seen in our clinic in March 2018 at which time she underwent a left SI joint injection. She has not followed up since then. Patient previously underwent LESI x 3 in early 2015 with our facility and subsequently she underwent spinal fusion in June 2017. Today, her primary pain complaint is low back pain and right lateral hip pain. Her back pain is worse than her lateral hip pain. Pain is rated as 6 out of 10, worse with walking, gardening, shopping, cutting grass and better with resting, ice, use of medications like when necessary Valium, Tylenol 3 and Tylenol arthritis. Her pain is particularly worse on standing up from a bent position. This pain has been present since prior to her surgery in June 2017. She states that it "grabs her." She does endorse subjective right leg weakness. She denies numbness and tingling. She states that her sleep has been affected by the pain. Today, pt denies new-onset bowel/bladder incontinence, or any other signs or symptoms of cauda equina syndrome. There are no signs of acute intoxication, and no indications of medication diversion or overuse. In addition to above, 13-point review of systems is also negative for chest pain, shortness of breath, changes in vision, changes in hearing, new onset weakness, abdominal pain, diarrhea, extreme fatigue, malaise, fever, skin changes, homicidal or suicidal ideation, or bowel or bladder incontinence. Physical exam: Vitals: Reviewed in EMR GENERAL: Well appearing, in no acute distress, obese PSYCH: Mood and affect is appropriate. Awake, alert, and oriented SKIN: Skin color, texture, turgor normal, no rashes or lesions HEENT: Normocephalic, atraumatic. EOM intact CV: No pedal edema RESP: Respirations are unlabored, no audible wheezing GI: Abdomen non-distended MUSCULOSKELETAL: Bilateral lower extremity strength is normal and symmetric. No atrophy or tone abnormalities are noted. Lumbar spine: Straight leg raising in the sitting position is negative for radicular pain. Tenderness to palpation over the lumbar spine and paraspinous muscles bilaterally. Positive for pain with facet loading and back extension/rotation. Pain is particularly worse on lumbar extension from a flexed position. Buttocks: No pain to palpation over the PSIS, sacroiliac joint maneuvers are negative for pain. Tenderness to palpation over right greater trochanter. Extremities: Peripheral joint ROM is full and pain free without obvious instability or laxity in all four extremities. No edema or skin discolorations noted. Gait: Gait is slow, antalgic NEUR: Bilateral lower extremity coordination and muscle stretch reflexes are physiologic and symmetric. Negative clonus bilaterally. No loss of sensation is noted. Imaging: Computed tomography scan lumbar spine dated 11/08/2017 demonstrates postsurgical changes at the L4-L5 level with metallic hardware artifact. There is no large focal disc herniation. Bone scan done at [facility] on 08/14/2019 shows mild intensity uptake throughout the thoracic and lower lumbar spine likely degenerative. Assessment: 1. lumbar degenerative disc disease, lumbar spondylosis 2. chronic pain syndrome 3. SIJ dysfunction Plan: 1. Explanation: Opioid and psychological risk scores were reviewed. Diagnoses, prognoses, and multiple treatment options including but not limited to physical therapy, interventional therapies, adjuvant medical therapies, and surgery were discussed with the patient and all questions were answered to the patient's satisfaction. 2. Opioid agreement: no opioids prescribed today 3. Counseling: The patient was counseled on BODY MASS INDEX, EXERCISE. Specifically, the patient was instructed regarding the importance of weight control, and exercise in the context of both chronic pain and overall health. 4. Procedures: We will first schedule right greater trochanter steroid injection. Following this, we will schedule Bilateral Medial branch block for facets L3-4 and L5-S1. Patient is fused L4-5. (Medial branches at the transver se processes of L2, L 3, L 5 and sacral ala) 2. If patient expresses significant benefit from this, would proceed with radiofrequency ablation in the future. 5. Consultations: None 6. Investigations: None 7. Medications: none prescribed 8. Disposition: f/u for procedure as scheduled PQRS Measure Charge Sheet Measure #130: Documentation of Current Meds in Medical Chart: Patient's medications documented in chart Measure #226: Tobacco Use: Screen & Cessation Intervention: Pt not a tobacco user Measure #111: Pneumonia Vaccination: Pneumococcal vaccine NOT administered or previously given Measure #47: Advance Care Plan: Advance care planning discussed & documented, pt chose/unable to give Measure #412: Opioid Treatment Agreement: No documentation of signed opioid treatment agreement Measure #317: Preventitive Care & Scrn High Bld Press & F/U: Pre-hypertensive or hypertensive BP documented, pt will f/u with PCP Measure #128: Body Mass Index (BMI) Screening & Follow-up: BMI documented ABOVE normal parameters - f/u documented Measure #131: Pain Assessment & Follow-up: Pain positive & plan documented, Follow-up scheduled Measure #431: Unhealthy Alcohol Use Preventative Care & Scrn: Patient not identified as an unhealthy alcohol user PQRS Narrative: Smoking Status Never smoker Pain Intensity [Back] 2 Scale Used Numeric (1 - 10) Hx Alcohol Use (MH) No Home Medications: Ambulatory Orders Insulin Aspart [NovoLOG Flexpen] See Protocol SQ ACHS 12/22/16 Insulin Glargine [Lantus] 38 units SQ HS 12/22/16 Diazepam [Valium] 1 tab PO HS PRN 03/05/18 Lidocaine 5% Patch [Lidoderm] 1 patch TOPICAL DAILY PRN 03/05/18 Acetaminophen-Codeine 300-30mg [Tylenol w/codeine #3] 1 - 2 tab PO Q4-6H PRN 03/22/18 Insulin Aspart [Novolog Flexpen] 5 unit SQ ACHS 03/23/18 Allopurinol [Zyloprim] 100 mg PO DAILY 08/22/19 Bisoprolol [Zebeta] 5 mg PO DAILY 08/22/19 Ergocalciferol [Vitamin D2] 50,000 unit PO AVILA 08/22/19 Ferrous Sulfate [Feosol] 325 mg PO DAILY 08/22/19 Gabapentin [Neurontin] 300 mg PO TID 08/22/19 Melatonin 10 mg PO HS 08/22/19 Saline Eye Drops 2 drops BOTH EYES DAILY 08/22/19 sitaGLIPtin PHOS/metFORMIN HCL [Janumet Xr 50-1,000 mg Tablet] 1 each PO DAILY 08/22/19 Controlled Substance Measures - Controlled Substance Measures Is patient prescribed a controlled substance at discharge?: No
== END | disposition home or self-care (01) ==
LOC: PNWHC3 11:31
PROVIDERS: ATTEND Anesthesiology
DX: G89.29 Other chronic pain (principal); M51.36 Other intervertebral disc degeneration, lumbar region; M47.816 Spondylosis without myelopathy or radiculopathy, lumbar region; M53.3 Sacrococcygeal disorders, not elsewhere classified; M43.26 Fusion of spine, lumbar region; M25.559 Pain in unspecified hip; R53.1 Weakness; Z79.4 Long term (current) use of insulin; Z79.84 Long term (current) use of oral hypoglycemic drugs; Z79.899 Other long term (current) drug therapy
CPT/HCPCS: 99211

== ENCOUNTER 2019-09-09 06:21 | Day surgery (SDC) | payer MEDICARE ==
[2019-09-09 06:41] VITALS: TEMP 96.8
[2019-09-09] MEDS ORDERED: LIDOCAINE 1% 20 ML VIAL (10MG/ML) FOR IV START INTRADERMA ONE (06:42)
[2019-09-09] MEDS ORDERED: LACTATED RINGERS 1,000 ML IV ONE (06:42)
[2019-09-09 06:43] LABS: Glucose,Whole Blood 104 mg/dL (75-99)
[2019-09-09] MEDS ORDERED: LACTATED RINGERS 1,000 ML IV SCH (07:00)
[2019-09-09] MEDS ORDERED: IV FLUID CONTINUATION 1,000 ML IV ONE (07:29)
[2019-09-09 07:44] VITALS: BP 123/77; PULSE 68; RESP 16
--- NOTE | 2019-09-09 09:01 | P.PCN ---
Date of Procedure: 09/09/19 Description of Procedure: Diagnostic Lumbar Medial Branch Block L2-3, L3-4, L5-S1 Date of the procedure: PREOPERATIVE DIAGNOSIS: Lumbar Facet Arthropathy, lumbar postlaminectomy syndrome POSTOPERATIVE DIAGNOSIS: Lumbar Facet Arthropathy, lumbar postlaminectomy syndrome PROCEDURE: Diagnostic bilateral L2-L3, L3-L4, L5-S1 medial branch block under fluoroscopy. Surgeon: Felipe Unger MD ANESTHESIA: Local with 1% lidocaine; IV sedation with Versed 2mg and Fentanyl 2 ml. EBL: Minimal COMPLICATION: None. IV FLUIDS: 100 mL of normal saline. PROCEDURE INDICATION: Chronic low back pain secondary to Facet arthropathy, status post fusion L4-L5, unresponsive to conservative treatment. PROCEDURE DESCRIPTION: The patient was seen and identified in the preoperative area. Risks, benefits, complications, and alternatives were discussed with the patient. The patient agreed to proceed with the procedure and signed the consent. IV was started. Vital signs were stable throughout the procedure. The patient was taken to the procedure room and was placed in the prone position on the procedure table. The lumbosacral area was prepped and draped in the usual sterile fashion. Critical pause was taken. Using right/left oblique fluoroscopy, the junction transverse process and the superior articular process of the L2, L3, L5 vertebra, which correspond to the fluoroscopic image of the "eye of the Kranthi dog", and the block site of the L2 medial branch, was identified. Subsequently, a 25-gauge, 3.5-inch spinal needle was advanced under fluoroscopic guidance until contact was made with periosteum. At this point, 1 mL of block solution containing a mixture of Depomedrol 40 mg and 5 mL of 0.5% preservative-free ropivacaine was injected after negative aspiration for blood and CSF and blood and in the absence of paresthesias. The needle was subsequently removed and the same procedure was repeated at the levels of L3 and sacral ala bilaterally. At the end of the procedure, skin was cleansed, and bandages were applied. The patient tolerated the procedure well without complications. Patient was observed in the recovery area until he/she met all discharge criteria. Disposition: Repeat in 2 weeks. Bilateral L2-3, L3-4, L5-S1 Medial branches.
--- NOTE | 2019-09-09 16:25 | FL ---
Fluoroscopy HISTORY: Pain 34 seconds fluoroscopy time supplied to the referring clinician. 5 intraoperative C-arm images docum ent the procedure. See dictated report from anesthesia.
== END 2019-09-09 08:01 | disposition home or self-care (01) ==
LOC: ORPAIN 06:21
PROVIDERS: ATTEND Anesthesiology
DX: M96.1 Postlaminectomy syndrome, not elsewhere classified (principal); M47.816 Spondylosis without myelopathy or radiculopathy, lumbar region; E11.9 Type 2 diabetes mellitus without complications; Z88.2 Allergy status to sulfonamides; Z88.8 Allergy status to other drugs, medicaments and biological substances
CPT/HCPCS: 64493; 64494; 64495; J2250; J3010; 99152

== ENCOUNTER 2019-09-23 06:00 | Day surgery (SDC) | payer MEDICARE ==
[2019-09-19 15:32] VITALS: BMI 37.9
[2019-09-23] MEDS ORDERED: LACTATED RINGERS 1,000 ML IV SCH (06:07)
[2019-09-23 06:23] VITALS: PULSE 68; RESP 16; TEMP 97.1
[2019-09-23] MEDS ORDERED: LIDOCAINE 1% 20 ML VIAL (10MG/ML) FOR IV START INTRADERMA ONE (06:32)
[2019-09-23 06:34] LABS: Glucose,Whole Blood 87 mg/dL (75-99)
[2019-09-23] MEDS ORDERED: IV FLUID CONTINUATION 1,000 ML IV ONE (07:30)
--- NOTE | 2019-09-23 07:35 | P.PCN ---
Date of Procedure: 09/23/19 Procedure(s) Performed: PREOPERATIVE DIAGNOSIS : Lumbar spondylosis with Facet Arthropathy without myelopathy POSTOPERATIVE DIAGNOSIS: same PROCEDURE: Second Diagnostic lumbar medial branch block with fluoroscopy at the transverse process of L2, L3 and sacral ala [bilateral] which covers facets L34 and L5-S1 ANESTHESIA: Local anesthetic; moderate IV sedation with Versed 2 mg, sedation time 15 minutes Fluoroscopy was used for the procedure and images were saved in the radiology portion of the chart. Surgeon: Srinivasa Rubio MD PROCEDURE INDICATION: Lumbar back pain without radiculopathy, not responsive to conservative management. PROCEDURE DESCRIPTION: the patient was seen and identified in the preop holding area , risks and benefits and possible complications of the procedure and alternatives were discussed with the patient, and the patient agreed to proceed with the procedure and signed the consent . IV was started , vital signs were monitored during the procedure and fluoroscopy was used to maximize the benefit and accuracy of the needle placement, and sedation was given to decrease patient anxiety. Patient was taken to the procedure room and placed in prone position. The lumbar region was prepped using chlorhexidineX-2. Under strict sterile technique using AP fluoroscopy the bilateral sacral ala were identified and using ipsilateral oblique fluoroscopy ,the junction of the transverse process and the superior articulating process of the L2, L3 vertebra which co rresponds to the fluoroscopy image of the eye of the Kranthi dog for the medial branches were identified. Subsequently, after local infiltration of skin with lidocaine 1% 0.2 mL at each level , a 22-gauge 5 inch Quincke-type needle was placed at the junction of the base of the transverse process and the superior articular process at the appropriate level as well as the sacral ala, and the needle was advanced until the periosteum contacted, needle placement confirmed with AP and oblique fluoroscopy, 0.2 mL of Isovue 200 per level was injected which revealed no vascular uptake and after negative aspiration, 0.5 mL of lidocaine 4 % was injected at each level and the needle subsequently removed . At the end of the procedure and the needles were removed and a bandage applied after the skin was cleaned. The patient was taken to recovery room in stable condition and monitors in the recovery room for 20-30 minutes and discharged home in stable condition after discharge criteria met and patient will follow up in clinic in 2 weeks Note: Due to fusion at L4-5, the L4 medial branch (at transverse process of L5) was not able to be visualized, and hence not performed. EBL: Minimal COMPLICATION: None.
[2019-09-23 07:49] VITALS: BP 123/66
[2019-09-23 07:58] LABS: Glucose,Whole Blood 82 mg/dL (75-99)
--- NOTE | 2019-09-23 10:14 | FL ---
EXAMINATION TYPE: FL guided pain mgmt statistic DATE OF EXAM: 09/23/2019 HISTORY: Flouroscopy time 4 seconds of fluoroscopy provided. IMPRESSION: 1. Fluoroscopy time.
== END 2019-09-23 08:03 | disposition home or self-care (01) ==
LOC: ORPAIN 06:00
PROVIDERS: ATTEND Anesthesiology
DX: G89.4 Chronic pain syndrome (principal); M47.816 Spondylosis without myelopathy or radiculopathy, lumbar region; M53.3 Sacrococcygeal disorders, not elsewhere classified; Z78.0 Asymptomatic menopausal state; Z98.1 Arthrodesis status; Z79.4 Long term (current) use of insulin; Z79.899 Other long term (current) drug therapy
CPT/HCPCS: 64493; 64494; J2250; Q9966; 99152

== ENCOUNTER → 2019-10-03 | Outpatient (CLI) | payer MEDICARE ==
[2019-10-03 13:45] VITALS: BP 143/83; PULSE 72; RESP 16
--- NOTE | 2019-10-08 13:54 | P.PAINPG ---
Subjective Progress Note Date: 10/03/19 Patient returns for followup for chronic back pain. She recently underwent bilateral lumbar medial branch blocks 2 and returns today for follow-up. She reports 100% pain relief, and is still experiencing benefit from these blocks. She does still have right greater trochanter pain and left iliac crest pain, which she would like addressed at a later date. She denies numbness and tingling. Today, pt denies new-onset bowel incontinence, or any other signs or symptoms of cauda equina syndrome. There are no signs of acute intoxication, and no indications of medication diversion or overuse. In addition to above, 13-point review of systems is also negative for chest pain, shortness of breath, changes in vision, changes in hearing, new onset weakness, abdominal pain, diarrhea, extreme fatigue, malaise, fever, skin changes, homicidal or suicidal ideation, or bowel incontinence. She does endorse chronic urinary urgency and intermittent constipation/diarrhea. Physical exam: Vitals: Reviewed in EMR GENERAL: Well appearing, in no acute distress, obese PSYCH: Mood and affect is appropriate. Awake, alert, and oriented SKIN: Skin color, texture, turgor normal, no rashes or lesions HEENT: Normocephalic, atraumatic. EOM intact CV: No pedal edema RESP: Respirations are unlabored, no audible wheezing GI: Abdomen non-distended MUSCULOSKELETAL: Bilateral lower extremity strength is normal and symmetric. No atrophy or tone abnormalities are noted. Lumbar spine: Mild Tenderness to palpation over the lumbar spine and paraspinous muscles bilaterally. Positive for pain with facet loading and back extension/rotation. Pain is particularly worse on lumbar extension from a flexe d position. Buttocks: No pain to palpation over the PSIS, sacroiliac joint maneuvers are negative for pain. Tenderness to palpation over right greater trochanter and left iliac crest. Extremities: Peripheral joint ROM is full and pain free without obvious instability or laxity in all four extremities. No edema or skin discolorations noted. Gait: Gait is slow, antalgic NEUR: Bilateral lower extremity coordination and muscle stretch reflexes are physiologic and symmetric. Negative clonus bilaterally. No loss of sensation is noted. Imaging: Computed tomography scan lumbar spine dated 11/08/2017 demonstrates postsurgical changes at the L4-L5 level with metallic hardware artifact. There is no large focal disc herniation. [facility] scan done at [facility] on 08/14/2019 shows mild intensity uptake throughout the thoracic and lower lumbar spine likely degenerative. Assessment: 1. lumbar degenerative disc disease, lumbar spondylosis 2. chronic pain syndrome 3. SIJ dysfunction Plan: 1. Explanation: Opioid and psychological risk scores were reviewed. Diagnoses, prognoses, and multiple treatment options including but not limited to physical therapy, interventional therapies, adjuvant medical therapies, and surgery were discussed with the patient and all questions were answered to the patient's satisfaction. 2. Opioid agreement: no opioids prescribed today 3. Counseling: The patient was counseled on BODY MASS INDEX, EXERCISE. Specifically, the patient was instructed regarding the importance of weight control, and exercise in the context of both chronic pain and overall health. 4. Procedures: Patient had good relief from bilateral medial branch blocks 2. We'll proceed with radiofrequency ablation for facets L3-4 and L5-S1 left side first, patient will call to schedule this. Patient is fused L4-5. (Medial branches at the transverse processes of L2, L 3 and sacral ala) . In the future, she would likely benefit from right greater trochanter and left cluneal nerve steroid injections. 5. Consultations: None 6. Investigations: None 7. Medications: none prescribed 8. Disposition: f/u for procedure PQRS Measure Charge Sheet Measure #130: Documentation of Current Meds in Medical Chart: Patient's medications documented in chart Measure #226: Tobacco Use: Screen & Cessation Intervention: Pt not a tobacco user Measure #111: Pneumonia Vaccination: Pneumococcal vaccine NOT administered or previously given Measure #47: Advance Care Plan: Advance care planning discussed & documented, pt chose/unable to give Measure #412: Opioid Treatment Agreement: No documentation of signed opioid treatment agreement Measure #317: Preventitive Care & Scrn High Bld Press & F/U: Pre-hypertensive or hypertensive BP documented, pt will f/u with PCP Measure #128: Body Mass Index (BMI) Screening & Follow-up: BMI documented ABOVE normal parameters - f/u documented Measure #131: Pain Assessment & Follow-up: Pain positive & plan documented, Follow-up scheduled Measure #431: Unhealthy Alcohol Use Preventative Care & Scrn: Patient not identified as an unhealthy alcohol user PQRS Narrative: Smoking Status Never smoker Hx Alcohol Use (MH) No Home Medications: Ambulatory Orders Insulin Aspart [NovoLOG Flexpen] See Protocol SQ ACHS 12/22/16 Insulin Glargine [Lantus] 38 units SQ HS 12/22/16 Diazepam [Valium] 1 tab PO HS PRN 03/05/18 Lidocaine 5% Patch [Lidoderm] 1 patch TOPICAL DAILY PRN 03/05/18 Acetaminophen-Codeine 300-30mg [Tylenol w/codeine #3] 1 - 2 tab PO Q4-6H PRN 03/22/18 Insulin Aspart [Novolog Flexpen] 5 unit SQ ACHS 03/23/18 Allopurinol [Zyloprim] 100 mg PO DAILY 08/22/19 Bisoprolol [Zebeta] 5 mg PO QAM 08/22/19 Ergocalciferol [Vitamin D2] 50,000 unit PO AVILA 08/22/19 Ferrous Sulfate [Feosol] 325 mg PO DAILY 08/22/19 Gabapentin [Neurontin] 300 mg PO TID 08/22/19 Melatonin 10 mg PO HS 08/22/19 Saline Eye Drops 2 drops BOTH EYES DAILY 08/22/19 sitaGLIPtin PHOS/metFORMIN HCL [Janumet Xr 50-1,000 mg Tablet] 1 each PO DAILY 08/22/19 Controlled Substance Measures - Controlled Substance Measures Is patient prescribed a controlled substance at discharge?: No
== END | disposition home or self-care (01) ==
LOC: PNWHC3 12:22
PROVIDERS: ATTEND Anesthesiology
DX: G89.4 Chronic pain syndrome (principal); M51.36 Other intervertebral disc degeneration, lumbar region; M47.816 Spondylosis without myelopathy or radiculopathy, lumbar region; M53.3 Sacrococcygeal disorders, not elsewhere classified; Z79.4 Long term (current) use of insulin; Z79.891 Long term (current) use of opiate analgesic; Z79.899 Other long term (current) drug therapy
CPT/HCPCS: 99211

== ENCOUNTER → 2019-10-03 | Outpatient (CLI) | payer MEDICARE ==
[2019-10-03 14:03] LABS: Basophils % (A) 1 %; Eosinophils # (A) 0.1 k/uL (0-0.7); Eosinophils % (A) 2 %; HCT 40.6 % (34.0-46.0); Lymphocytes # (A) 1.3 k/uL (1.0-4.8); Lymphocytes % (A) 17 %; MCH 30.9 pg (25.0-35.0); MCHC 32.1 g/dL (31.0-37.0); MCV 96.2 fL (80.0-100.0); Mean Platelet Volume 6.8; Monocytes # (A) 0.5 k/uL (0-1.0); Monocytes % (A) 6 %; Neutrophils # (A) 5.7 k/uL (1.3-7.7); Neutrophils % (A) 74 %; Platelet Count 256 k/uL (150-450); RBC 4.22 m/uL (3.80-5.40); RDW 13.8 % (11.5-15.5); WBC 7.7 k/uL (3.8-10.6)
[2019-10-03 20:25] LABS: African American GFR (CKD) 38.8 (60.0-200.0); Albumin 3.9 g/dL (3.80-4.90); Albumin/Globulin Ratio 2.17 (1.60-3.17); Anion Gap 11.3 mmol/L (4.00-12.00); BUN/Creat Ratio 13.75 Ratio (12.00-20.00); Calcium 8.7 mg/dL (8.7-10.3); Carbon Dioxide 23.7 mmol/L (21.6-31.8); Chol/HDL Ratio 5.83; Globulin 1.8 g/dL (1.6-3.3); LDL Cholesterol,Calculated 176.2 mg/dL (0.0-131.0); Potassium 4.6 mmol/L (3.5-5.5); Total Bilirubin 0.4 mg/dL (0.2-1.2); Total Protein 5.7 g/dL (6.2-8.2); VLDL Calculation 21.8 mg/dL (5.00-40.00)
[2019-10-03 20:33] LABS: T4, Free (Free Thyroxine) 1.1 ng/dL (0.80-1.80)
== END | disposition home or self-care (01) ==
LOC: LABWHC1 11:14
PROVIDERS: ATTEND Nurse Practitioner Women's Health
DX: Z00.00 Encounter for general adult medical examination without abnormal findings (principal); E78.5 Hyperlipidemia, unspecified; I12.9 Hypertensive chronic kidney disease with stage 1 through stage 4 chronic kidney disease, or unspecified chronic kidney disease; E11.22 Type 2 diabetes mellitus with diabetic chronic kidney disease; N18.3 Chronic kidney disease, stage 3 (moderate)
CPT/HCPCS: 36415; 80053; 80061; 84439; 84443; 85025

== ENCOUNTER → 2019-11-07 | Outpatient (CLI) | payer MEDICARE ==
--- NOTE | 2019-11-08 11:32 | MM ---
Reason for exam: screening (asymptomatic). Last mammogram was performed 1 year and 1 month ago. History: Patient is postmenopausal and had first child at age 33. Family history of breast cancer in sister at age 58. Benign cyst aspiration of the left breast. Benign excisional biopsy of the left breast. Physical Findings: A clinical breast exam by your physician is recommended on an annual basis and results should be correlated with mammographic findings. MG 3D Screening Mammo W/Cad Bilateral CC and MLO view(s) were taken. Prior study comparison: October 16, 2018, bilateral MG 3d screening mammo w/cad. January 18, 2017, bilateral MG 3d screening mammo w/cad. The breast tissue is almost entirely fat. No significant changes when compared with prior studies. ASSESSMENT: Benign, BI-RAD 2 RECOMMENDATION: Routine screening mammogram of both breasts in 1 year.
== END | disposition home or self-care (01) ==
LOC: RADMAMWWP 13:16
PROVIDERS: ATTEND Family Medicine
DX: Z12.31 Encounter for screening mammogram for malignant neoplasm of breast (principal); Z80.3 Family history of malignant neoplasm of breast
CPT/HCPCS: 77063; 77067

== ENCOUNTER → 2020-01-09 | Outpatient (CLI) | payer MEDICARE ==
[2020-01-09 12:42] LABS: HCT 37.7 % (34.0-46.0); HGB 12.3 gm/dL (11.4-16.0); MCH 31.7 pg (25.0-35.0); MCHC 32.6 g/dL (31.0-37.0); MCV 97.4 fL (80.0-100.0); Mean Platelet Volume 8.4; Platelet Count 192 k/uL (150-450); RBC 3.87 m/uL (3.80-5.40); RDW 13.6 % (11.5-15.5); WBC 6.4 k/uL (3.8-10.6)
[2020-01-09 14:12] LABS: Bacteria,Urine Moderate /hpf; Squamous Epithelial Cell,Urine 1 /hpf (0-4); WBC,Urine 11 /hpf (0-5)
[2020-01-09 15:20] LABS: Appearance,Urine Slightly Cloudy (Clear); Bilirubin,Urine Negative (Negative); Blood,Urine Negative (Negative); Color,Urine Yellow; Glucose,Urine (UA) 3+ (Negative); Ketones,Urine Negative (Negative); Protein,Urine Negative (Negative); Urobilinogen,Urine <2.0 mg/dL (<2.0)
[2020-01-09 15:21] LABS: Leukocyte Esterase,Urine Small (Negative); Nitrite,Urine Positive (Negative)
[2020-01-09 18:43] LABS: % Iron Saturation 24.15 (12.00-45.00); Albumin/Globulin Ratio 2.67 (1.60-3.17); Anion Gap 6.5 mmol/L (4.00-12.00); BUN/Creat Ratio 14.12 Ratio (12.00-20.00); Calcium 8.3 mg/dL (8.7-10.3); Carbon Dioxide 27.5 mmol/L (21.6-31.8); Globulin 1.5 g/dL (1.6-3.3); Magnesium 1.7 mg/dL (1.5-2.4); Non-African American GFR(CKD) 31.1 (60.0-200.0); Phosphorus 3.5 mg/dL (2.4-5.1); Potassium 4.5 mmol/L (3.5-5.5); Total Bilirubin 0.3 mg/dL (0.3-1.2); Total Protein 5.5 g/dL (6.2-8.2); Uric Acid 5.8 mg/dL (2.9-7.7)
[2020-01-09 18:52] LABS: Ferritin 84.2 ng/mL (10.0-291.0)
[2020-01-09 21:35] LABS: Microalbumin Creatinine Ratio <30 mg/g Creat (0-30); Urine Creatinine 50.4 mg/dL
== END ==
LOC: LABWHC1 11:20
PROVIDERS: ATTEND Internal Medicine
DX: N18.3 Chronic kidney disease, stage 3 (moderate) (principal); D63.1 Anemia in chronic kidney disease; N39.0 Urinary tract infection, site not specified; R80.9 Proteinuria, unspecified; N25.81 Secondary hyperparathyroidism of renal origin; E55.9 Vitamin D deficiency, unspecified; M10.9 Gout, unspecified
CPT/HCPCS: 36415; 80053; 81001; 82043; 82306; 82570; 82728; 83540; 83550; 83735; 83970; 84100; 84550; 85027

== ENCOUNTER → 2020-01-24 | Outpatient (CLI) | payer MEDICARE ==
[2020-01-24 16:26] LABS: Chol/HDL Ratio 4.56; LDL Cholesterol,Calculated 110.4 mg/dL (0.0-131.0); VLDL Calculation 28.6 mg/dL (5.00-40.00)
== END | disposition home or self-care (01) ==
LOC: LABWHC1 09:35
PROVIDERS: ATTEND Nurse Practitioner Women's Health
DX: E78.00 Pure hypercholesterolemia, unspecified (principal); Z79.899 Other long term (current) drug therapy
CPT/HCPCS: 36415; 80061

== ENCOUNTER 2020-02-03 06:48 | Day surgery (SDC) | payer MEDICARE ==
[2020-01-30 15:40] VITALS: BMI 39.0
[~2020-02-03 06:48] MED LIST: LACTATED RINGERS 1,000 ML IV SCH; LIDOCAINE 1% (10MG/ML) FOR IV START INTRADERMA PRN
[2020-02-03 07:32] VITALS: RESP 16; TEMP 97.3
[2020-02-03 07:45] LABS: Glucose,Whole Blood 132 mg/dL (75-99)
[2020-02-03] MEDS ORDERED: TRIAMCINOLONE ACETONIDE 40 MG/ML 1 ML VIAL ONE (08:13)
[2020-02-03] MEDS ORDERED: MIDAZOLAM 2 MG/2 ML VIAL ONE (08:13)
[2020-02-03] MEDS ORDERED: fentaNYL (PF) 50 MCG/ML 2 ML AMP ONE (08:13)
[2020-02-03] MEDS ORDERED: BUPIVACAINE (PF) 0.5% 30 ML VIAL ONE (08:13)
--- NOTE | 2020-02-03 08:42 | P.PCN ---
Date of Procedure: 02/03/20 Surgeon: Arnel Chao Pathology: none sent Condition: stable Disposition: PACU Description of Procedure: PREOPERATIVE DIAGNOSIS: Lumbar spondylosis without myelopathy, morbid obesity POSTOPERATIVE DIAGNOSIS: Lumbar spondylosis without myelopathy,morbid obesity PROCEDURES : Left Radiofrequency thermocoagulation L3-L4, L4-L5, and L5-S1 medial branch, with fluoroscopic guidance ANESTHESIA: IV moderate conscious sedation with versed and fentanyl and local infiltration with lidocaine 1% 5 ml EBL: Minimal PROCEDURE INDICATION: The patient with low back pain secondary to lumbar facet arthropathy who had more than 50% relief of her pain with previous diagnostic lumbar medial branch block with bupivacaine. PROCEDURE DESCRIPTION / TECHNIQUE: The patient was seen and identified in the preoperative area. Risks, benefits, complications, including but not limited to risk of infection ,bleeding , allergic reactions to the medications and no complete pain relief , and alternatives were discussed with the patient, the patient agreed to proceed with the procedure and signed the consent. IV was started. Vital signs remained stable throughout the procedure. The patient has lumbar fusion at the L4 5 level of the spine and L4 medial branch was not done. Patient was taken to the OR and time out was completed. The patient was placed in the prone position on the procedure table. The lumber area was prepped and draped in the usual sterile fashion. . Vital signs were closely monitored during the procedure .IV sedation was used during the procedure to decrease patients anxiety. The target points were identified as follows: For the L5-S1 level which corresponds to the dorsal ramus of L5 the target point was at the superior medial aspect of the sacral ala on the left side of the spine on the AP view of fluoroscopy and for the L2, L3, medial branches the target points were at the connection between the transverse process and the superior articular process of L3, and L5 vertebra respectively on the left oblique view of fluoroscopy. skin was marked, and localized with 1% lidocaineat these points. Subsequently, an 18 [id number] radiofrequency needles with a 10-mm curved active tips were advanced guided by fluoroscopy to each of the target points mentioned above in a superior medial direction to get the active tips as parallel as possible to the medial branches tracks. AP, oblique, and lateral views of fluoroscopy were used to verify needle tips position. Each level then underwent motor testing at 2.5 Hz and 0 to 3 volt with local stimulation, but no radicular symptoms down the legs. Thereafter radiofrequency thermocoagulation at 80 degrees celsius for 90 seconds after injecting 1 ml of PF Marcaine 0.5%(3 mls) with 40 mg of Kenalog. At the end of the procedure, the skin was cleansed and bandages were applied. COMPLICATIONS: No acute complications. DISPOSITION / PLANS: The patient was placed in a supine position and transferred to the recovery area in a stable condition for observation and was discharged from the recovery room after meeting discharge criteria. Home discharge instructions given to the patient by the staff. The patient was reexamined prior to discharge. The patient will schedule a follow up in the clinic in 2-4 weeks.
[2020-02-03] MEDS ORDERED: IV FLUID CONTINUATION 1,000 ML IV ONE (08:46)
[2020-02-03 08:54] LABS: Glucose,Whole Blood 117 mg/dL (75-99)
[2020-02-03 08:58] VITALS: BP 104/67; PULSE 75
--- NOTE | 2020-02-03 12:27 | FL ---
Fluoroscopy HISTORY: Pain 11 seconds fluoroscopy time supplied to the referring clinician. 5 intraoperative C-arm images docum ent the procedure. See dictated report from anesthesia.
== END 2020-02-03 09:20 ==
LOC: ORPAIN 06:48
PROVIDERS: ATTEND Anesthesiology
DX: M47.816 Spondylosis without myelopathy or radiculopathy, lumbar region (principal); E11.9 Type 2 diabetes mellitus without complications; Z98.1 Arthrodesis status; Z78.0 Asymptomatic menopausal state; Z88.2 Allergy status to sulfonamides; Z88.8 Allergy status to other drugs, medicaments and biological substances
CPT/HCPCS: 64635; 64636; J2250; J3301; J3010; 99152

== ENCOUNTER → 2020-07-16 | Outpatient (CLI) | payer MEDICARE ==
[2020-07-16 13:41] LABS: HCT 41.7 % (34.0-46.0); HGB 12.8 gm/dL (11.4-16.0); Hypochromasia Slight; MCH 29.3 pg (25.0-35.0); MCHC 30.8 g/dL (31.0-37.0); MCV 95.3 fL (80.0-100.0); Mean Platelet Volume 8.4; Platelet Count 273 k/uL (150-450); RBC 4.38 m/uL (3.80-5.40); RDW 13.9 % (11.5-15.5); WBC 8.1 k/uL (3.8-10.6)
[2020-07-16 21:56] LABS: % Iron Saturation 28.14 (12.00-45.00); Albumin 3.8 g/dL (3.80-4.90); Albumin/Globulin Ratio 2.11 (1.60-3.17); Anion Gap 10.8 mmol/L (4.00-12.00); BUN/Creat Ratio 16.47 Ratio (12.00-20.00); Calcium 8.7 mg/dL (8.7-10.3); Carbon Dioxide 22.2 mmol/L (21.6-31.8); Globulin 1.8 g/dL (1.6-3.3); Magnesium 1.6 mg/dL (1.5-2.4); Non-African American GFR(CKD) 31.1 (60.0-200.0); Phosphorus 4.9 mg/dL (2.4-5.1); Potassium 4.8 mmol/L (3.5-5.5); Total Bilirubin 0.4 mg/dL (0.2-1.2); Total Protein 5.6 g/dL (6.2-8.2); Uric Acid 6.1 mg/dL (2.9-7.7)
[2020-07-16 22:04] LABS: Ferritin 76.3 ng/mL (10.0-291.0)
== END | disposition home or self-care (01) ==
LOC: LABWHC1 11:29
PROVIDERS: ATTEND Internal Medicine
DX: N18.3 Chronic kidney disease, stage 3 (moderate) (principal); D63.1 Anemia in chronic kidney disease; N39.0 Urinary tract infection, site not specified; R80.9 Proteinuria, unspecified; N25.81 Secondary hyperparathyroidism of renal origin; M10.9 Gout, unspecified
CPT/HCPCS: 36415; 80053; 82728; 83540; 83550; 83735; 83970; 84100; 84550; 85027

== ENCOUNTER 2020-08-30 03:58 | Inpatient (IN) | payer MEDICARE ==
[2020-08-30] MEDS ORDERED: SODIUM CHLORIDE 0.9% 1,000 ML IV STA ×2 (04:16)
[2020-08-30 04:44] LABS: Basophils % (A) 0 %; Eosinophils # (A) 0.3 k/uL (0-0.7); Eosinophils % (A) 2 %; HCT 41.6 % (34.0-46.0); HGB 13.2 gm/dL (11.4-16.0); Lymphocytes # (A) 1.2 k/uL (1.0-4.8); Lymphocytes % (A) 8 %; MCH 29.2 pg (25.0-35.0); MCHC 31.6 g/dL (31.0-37.0); MCV 92.4 fL (80.0-100.0); Mean Platelet Volume 7.9; Monocytes % (A) 6 %; Neutrophils # (A) 13.2 k/uL (1.3-7.7); Neutrophils % (A) 83 %; Platelet Count 268 k/uL (150-450); RBC 4.51 m/uL (3.80-5.40); RDW 13.7 % (11.5-15.5); WBC 15.8 k/uL (3.8-10.6)
[2020-08-30 04:54] LABS: Albumin 3.6 g/dL (3.5-5.0); Calcium 8.7 mg/dL (8.4-10.2); Partial Thromboplastin Time 23.1 sec (22.0-30.0); Potassium 4.7 mmol/L (3.5-5.1); Prothrombin Time 10.3 sec (9.0-12.0); Total Bilirubin 0.9 mg/dL (0.2-1.3); Total Protein 6.1 g/dL (6.3-8.2)
[2020-08-30] MEDS ORDERED: INSULIN REGULAR 100 UNIT/ML VIAL SQ ONE (05:41)
--- NOTE | 2020-08-30 05:41 | ED ---
Abdominal Pain HPI - General Chief Complaint: Abdominal Pain Stated Complaint: Abd Pain Time Seen by Provider: 08/30/20 04:16 Source: patient Mode of arrival: ambulatory Limitations: no limitations - History of Present Illness Initial Comments: Genevieve is a very pleasant obese 65-year-old female with a history of diabetes who presents to the ER today for evaluation of nearly 24 hours of right lower quadrant abdominal pain. Patient reports she woke Monday morning with pain in her right lower quadrant. Pain persisted throughout the day. Was associated with decreased appetite. Patient also reports that he began running a low-grade fever and couldn't keep her sugars under control. She states she usually has very well controlled diabetes but her sugars up and over 200 which is very atypical for her. Around 3 AM the patient called the ER to ask if she should be evaluated and was advised to come in for further evaluation. Patient does report a distant history of kidney stones but reports this pain is different and more tender to the touch than her previous kidney stones. - Related Data Home Medications Medication Instructions Recorded Confirmed Insulin Aspart [NovoLOG Flexpen] See Protocol SQ ACHS 12/22/16 02/03/20 Insulin Glargine [Lantus] 38 units SQ HS 12/22/16 02/03/20 Lidocaine 5% Patch [Lidoderm] 1 patch TOPICAL DAILY PRN 03/05/18 02/03/20 diazePAM [Valium] 5 mg PO HS PRN 03/05/18 02/03/20 Acetaminophen-Codeine 300-30mg 1 - 2 tab PO Q4-6H PRN 03/22/18 02/03/20 [Tylenol w/codeine #3] Insulin Aspart [Novolog Flexpen] 5 unit SQ ACHS 03/23/18 02/03/20 Bisoprolol [Zebeta] 5 mg PO QAM 08/22/19 02/03/20 Ergocalciferol [Vitamin D2] 50,000 unit PO AVILA 08/22/19 02/03/20 Ferrous Sulfate [Feosol] 325 mg PO DAILY 08/22/19 02/03/20 Gabapentin [Neurontin] 300 mg PO TID 08/22/19 02/03/20 Melatonin 10 mg PO HS 08/22/19 02/03/20 Saline Eye Drops 2 drops BOTH EYES DAILY 08/22/19 02/03/20 allopurinoL [Zyloprim] 100 mg PO DAILY 08/22/19 02/03/20 sitaGLIPtin PHOS/metFORMIN HCL 1 each PO DAILY 08/22/19 02/03/20 [Janumet Xr 50-1,000 mg Tablet] Chromium Picolinate 1,000 mcg PO DAILY 01/30/20 02/03/20 Lipoic Acid 300 mg PO BID 01/30/20 02/03/20 Allergies Allergy/AdvReac Type Severity Reaction Status Date / Time metoclopramide HCl Allergy HAD Verified 08/30/20 04:07 [From Reglan] IV-CAUSED TARDIVE DYSKINESIA dulaglutide [From Trulicity] AdvReac severe Verified 08/30/20 04:07 Itching for 10 days sulfamethoxazole AdvReac CANNOT Verified 08/30/20 04:07 [From Bactrim] TAKE WITH METFORMIN PER PT/PER PHARMACIST trimethoprim [From Bactrim] AdvReac CANNOT Verified 08/30/20 04:07 TAKE WITH METFORMIN PER PT/PER PHARMACIST Review of Systems ROS Statement: Those systems with pertinent positive or pertinent negative responses have been documented in the HPI. ROS Other: All systems not noted in ROS Statement are negative. Past Medical History Past Medical History: Diabetes Mellitus, Hyperlipidemia, Osteoarthritis (OA), Pulmonary Embolus (PE), Renal Disease Additional Past Medical History / Comment(s): P.E. AT AGE 20, KIDNEY FAILURE - STAGE 3, CHRONIC BACK PAIN History of Any Multi-Drug Resistant Organisms: None Reported Past Surgical History: Section, Cholecystectomy, Orthopedic Surgery Additional Past Surgical History / Comment(s): PAIN CLINIC PROCEDURES, SHAVONNE TRIGGER RELEASE THUMB,RT KNEE SCOPE. BILAT VARICOSE VEIN STRIPPING AGE 29, spinal fusion, Past Anesthesia/Blood Transfusion Reactions: No Reported Reaction Past Psychological History: No Psychological Hx Reported Smoking Status: Never smoker Past Alcohol Use History: None Reported Past Drug Use History: None Reported - Past Family History Sister(s) Family Medical History: Cancer Mother Family Medical History: No Reported History General Exam - General Exam Comments Initial Comments: Physical Exam GENERAL: Appears uncomfortable HENT: Normocephalic, Atraumatic. EYES: PERRL, EOMI PULMONARY: Unlabored respirations. CARDIOVASCULAR: RRR Warm and well perfused extremities ABDOMEN: Obese Tender to palpation in RLQ with involuntary guarding SKIN: No rashes or bruising : Deferred NEUROLOGIC: Alert and oriented Normal speech Normal gait MUSCULOSKELETAL: Moving all extremities with no apparent injury PSYCHIATRIC: No SI/HI Limitations: no limitations Course Vital Signs 08/30/20 08/30/20 08/30/20 04:02 05:53 06:50 Temperature 100.8 F H 99.2 F Pulse Rate 88 83 92 Respiratory 18 18 18 Rate Blood Pressure 140/69 140/55 142/73 O2 Sat by Pulse 97 97 97 Oximetry Medical Decision Making - Medical Decision Making Patient was seen and evaluated history is obtained from the patient History and physical exam are concerning for an acute appendicitis labs and imaging were obtained Patient has poor kidney function with a GFR in the 30s therefore is not a candidate for CT with IV contrast for CT with out contrast was ordered She declined pain medication stating that as long as she wasn't touched and no one moved her she was okay Computed tomography scan confirms for physical diagnosis suggested patient does have an appendicitis there is concern for perforation the patient had a c holecystectomy by Dr. Dang but is familiar with Dr. Fisher who is on-call and is comfortable with Dr. Fisher doing a procedure Zosyn and Flagyl were ordered Patient care was discussed with Dr. Fisher agrees with plan for admission, scheduled Zosyn, Flagyl, antiemetics, pain medications, IV fluids at 1:30 in our, 12-lead EKG and consult to medicine for management of diabetes Patient care was discussed with patient's primary care physician Dr. Orozco who will be on consult for management of diabetes and medical comorbidities - Lab Data Result diagrams: 08/30/20 04:39 08/30/20 04:39 Lab Results 08/30/20 08/30/20 08/30/20 Range/Units 04:39 04:39 04:39 WBC 15.8 H (3.8-10.6) k/uL RBC 4.51 (3.80-5.40) m/uL Hgb 13.2 (11.4-16.0) gm/dL Hct 41.6 (34.0-46.0) % MCV 92.4 (80.0-100.0) fL MCH 29.2 (25.0-35.0) pg MCHC 31.6 (31.0-37.0) g/dL RDW 13.7 (11.5-15.5) % Plt Count 268 (150-450) k/uL Neutrophils % 83 % Lymphocytes % 8 % Monocytes % 6 % Eosinophils % 2 % Basophils % 0 % Neutrophils # 13.2 H (1.3-7.7) k/uL Lymphocytes # 1.2 (1.0-4.8) k/uL Monocytes # 1.0 (0-1.0) k/uL Eosinophils # 0.3 (0-0.7) k/uL Basophils # 0.0 (0-0.2) k/uL PT 10.3 (9.0-12.0) sec INR 1.0 (<1.2) APTT 23.1 (22.0-30.0) sec Sodium (137-145) mmol/L Potassium (3.5-5.1) mmol/L Chloride (98-107) mmol/L Carbon Dioxide (22-30) mmol/L Anion Gap mmol/L BUN (7-17) mg/dL Creatinine (0.52-1.04) mg/dL Est GFR (CKD-EPI)AfAm (>60 ml/min/1.73 sqM) Est GFR (CKD-EPI)NonAf (>60 ml/min/1.73 sqM) Glucose (74-99) mg/dL Calcium (8.4-10.2) mg/dL Total Bilirubin (0.2-1.3) mg/dL AST (14-36) U/L ALT (4-34) U/L Alkaline Phosphatase (38-126) U/L C-Reactive Protein (<10.0) mg/L Total Protein (6.3-8.2) g/dL Albumin (3.5-5.0) g/dL Lipase (23-300) U/L Urine Color Light Yellow Urine Appearance Cloudy H (Clear) Urine pH 6.0 (5.0-8.0) Ur Specific [place] 1.006 (1.001-1.035) Urine Protein Negative (Negative) Urine Glucose (UA) Trace H (Negative) Urine Ketones Negative (Negative) Urine Blood Negative (Negative) Urine Nitrite Positive H (Negative) Urine Bilirubin Negative (Negative) Urine Urobilinogen <2.0 (<2.0) mg/dL Ur Leukocyte Esterase Large H (Negative) Urine RBC 1 (0-5) /hpf Urine WBC 62 H (0-5) /hpf Ur Squamous Epith Cells 2 (0-4) /hpf Urine Bacteria Many H (None) /hpf 08/30/20 08/30/20 Range/Units 04:39 04:39 WBC (3.8-10.6) k/uL RBC (3.80-5.40) m/uL Hgb (11.4-16.0) gm/dL Hct (34.0-46.0) % MCV (80.0-100.0) fL MCH (25.0-35.0) pg MCHC (31.0-37.0) g/dL RDW (11.5-15.5) % Plt Count (150-450) k/uL Neutrophils % % Lymphocytes % % Monocytes % % Eosinophils % % Basophils % % Neutrophils # (1.3-7.7) k/uL Lymphocytes # (1.0-4.8) k/uL Monocytes # (0-1.0) k/uL Eosinophils # (0-0.7) k/uL Basophils # (0-0.2) k/uL PT (9.0-12.0) sec INR (<1.2) APTT (22.0-30.0) sec Sodium 133 L (137-145) mmol/L Potassium 4.7 (3.5-5.1) mmol/L Chloride 106 (98-107) mmol/L Carbon Dioxide 21 L (22-30) mmol/L Anion Gap 6 mmol/L BUN 22 H (7-17) mg/dL Creatinine 1.66 H (0.52-1.04) mg/dL Est GFR (CKD-EPI)AfAm 37 (>60 ml/min/1.73 sqM) Est GFR (CKD-EPI)NonAf 32 (>60 ml/min/1.73 sqM) Glucose 265 H (74-99) mg/dL Calcium 8.7 (8.4-10.2) mg/dL Total Bilirubin 0.9 (0.2-1.3) mg/dL AST 48 H (14-36) U/L ALT 32 (4-34) U/L Alkaline Phosphatase 117 (38-126) U/L C-Reactive Protein 69.2 H (<10.0) mg/L Total Protein 6.1 L (6.3-8.2) g/dL Albumin 3.6 (3.5-5.0) g/dL Lipase 108 (23-300) U/L Urine Color Urine Appearance (Clear) Urine pH (5.0-8.0) Ur Specific [place] (1.001-1.035) Urine Protein (Negative) Urine Glucose (UA) (Negative) Urine Ketones (Negative) Urine Blood (Negative) Urine Nitrite (Negative) Urine Bilirubin (Negative) Urine Urobilinogen (<2.0) mg/dL Ur Leukocyte Esterase (Negative) Urine RBC (0-5) /hpf Urine WBC (0-5) /hpf Ur Squamous Epith Cells (0-4) /hpf Urine Bacteria (None) /hpf Disposition Clinical Impression: Acute appendicitis Disposition: ADMITTED IP TO THIS HOSP Condition: Serious Referrals: Bradley Orozco MD [Primary Care Provider] - 1-2 days
[2020-08-30 06:17] LABS: Appearance,Urine Cloudy (Clear); Bacteria,Urine Many /hpf; Bilirubin,Urine Negative (Negative); Blood,Urine Negative (Negative); Color,Urine Light Yellow; Glucose,Urine (UA) Trace (Negative); Ketones,Urine Negative (Negative); Leukocyte Esterase,Urine Large (Negative); Nitrite,Urine Positive (Negative); Protein,Urine Negative (Negative); RBC,Urine 1 /hpf (0-5); Specific Gravity,Urine 1.006 (1.001-1.035); Squamous Epithelial Cell,Urine 2 /hpf (0-4); Urobilinogen,Urine <2.0 mg/dL (<2.0); WBC,Urine 62 /hpf (0-5)
--- NOTE | 2020-08-30 06:26 | CT ---
EXAMINATION TYPE: CT abdomen pelvis wo con DATE OF EXAM: 08/30/2020 COMPARISON: None HISTORY: RLQ pain, Rule out appendicitis . hx of cholecystectomy CT DLP: 1819.7 mGycm Automated exposure control for dose reduction was used. Images were obtained from the diaphragm to the floor the pelvis with no contrast. Lung bases are clear. There is no pleural effusion. Heart appears normal. Liver spleen pancreas stomach appear normal. Bile ducts are not dilated. There are clips from cholecy stectomy. There is no adrenal mass. Kidneys have normal size. There is no hydronephrosis. Ureters are not dilat ed. There is no retroperitoneal adenopathy. Bladder distends smoothly. There is no inguinal hernia. There are multiple sigmoid diverticula. There is some fluid and mild fat stranding in the lower abdom en and more on the right side. There appears to be 13 x 9 mm appendicolith. The appendix appears to b e dilated up to 16 mm in diameter. There is a second 4 mm appendicolith. There is pelvic fluid also i n the cul-de-sac. There is posterior fusion surgery at L4-5. Lumbar vertebra have normal alignment. There is laminectom y in the lower lumbar spine. The bony pelvis is intact. Hip joints are intact. There is no evidence o f free air. There is no ascites. IMPRESSION: There is evidence of a markedly thickened appendix with fluid and appendicoliths. There is fluid and fat stranding in the right lower quadrant around the appendix that is suggestive of ruptured appendix .
[2020-08-30] MEDS ORDERED: PIPERACILLIN-TAZOBACTAM 3.375 GM in SODIUM CHLORIDE 0.9% 100 ML IVPB STA (06:37)
[2020-08-30] MEDS ORDERED: NALOXONE 0.4 MG/ML 1 ML VIAL IV PRN (06:54)
[2020-08-30] MEDS ORDERED: metroNIDAZOLE-NS PMX 500 MG in SALINE 1 100ML.BAG IVPB STA (06:56)
[2020-08-30] MEDS: SODIUM CHLORIDE 0.9% 1,000 ML IV SCH ×2 (07:05→12:06)
[2020-08-30] MEDS: INSULIN ASPART (NovoLOG) 100 UNIT/ML VIAL SQ SCH ×4 (07:30→21:02)
[2020-08-30] MEDS: MORPHINE SULFATE 4 MG/ML SYRINGE IV PRN ×2 (07:46→23:01)
[2020-08-30] MEDS ORDERED: diazePAM 5 MG TAB PO PRN (13:04)
--- NOTE | 2020-08-30 13:04 | P.CONS ---
History of Present Illness - Reason for Consult Consult date: 08/30/20 Diabetes management Requesting physician: Jeannie Fisher - History of Present Illness This is a 65-year-old insulin-dependent diabetic woman the practice. 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 She reports her sugars have been elevated since yesterday morning. She has not been able to eat or drink much. She denies any chest pains, pressures or shortness of breath. She's been having some fever, anorexia and minimal nausea. 11 consult for management of her diabetes. She has received or feet emergency room to help control her pain symptoms. She is currently on Zosyn and has received a dose of Flagyl as well. IV fluids at 130 mL an hour. Review of Systems All systems: negative Past Medical History Past Medical History: Diabetes Mellitus, Hyperlipidemia, Hypertension, Musculoskeletal Disorder (Chronic low back pain), Osteoarthritis (OA), Pulmonary Embolus (PE) (At 20 years of age), Renal Disease (Diabetic nephropathy, stage III chronic renal failure) History of Any Multi-Drug Resistant Organisms: None Reported Past Surgical History: Section, Cholecystectomy, Orthopedic Surgery Additional Past Surgical History / Comment(s): PAIN CLINIC PROCEDURES, SHAVONNE TRIGGER RELEASE THUMB,RT KNEE SCOPE. BILAT VARICOSE VEIN STRIPPING AGE 29, spinal fusion, Past Anesthesia/Blood Transfusion Reactions: No Reported Reaction Past Psychological History: No Psychological Hx Reported Smoking Status: Never smoker Past Alcohol Use History: None Reported Past Drug Use History: None Reported - Past Family History Sister(s) Family Medical History: Cancer Mother Family Medical History: No Reported History Medications and Allergies Home Medications Medication Instructions Recorded Confirmed Type Insulin Aspart [NovoLOG Flexpen] See Protocol SQ ACHS 12/22/16 08/30/20 History Insulin Glargine [Lantus] 38 units SQ HS 12/22/16 08/30/20 History diazePAM [Valium] 5 mg PO HS PRN 03/05/18 08/30/20 History Acetaminophen-Codeine 300-30mg 1 tab PO DAILY PRN 03/22/18 08/30/20 History [Tylenol w/codeine #3] Insulin Aspart [Novolog Flexpen] 5 unit SQ ACHS 03/23/18 08/30/20 History Bisoprolol [Zebeta] 5 mg PO QAM 08/22/19 08/30/20 History Ergocalciferol [Vitamin D2] 50,000 unit PO AVILA 08/22/19 08/30/20 History Ferrous Sulfate [Feosol] 325 mg PO DAILY 08/22/19 08/30/20 History Gabapentin [Neurontin] 300 mg PO TID 08/22/19 08/30/20 History Melatonin 10 mg PO HS 08/22/19 08/30/20 History allopurinoL [Zyloprim] 100 mg PO DAILY 08/22/19 08/30/20 History sitaGLIPtin PHOS/metFORMIN HCL 1 each PO DAILY 08/22/19 08/30/20 History [Janumet Xr 50-1,000 mg Tablet] Simvastatin [Zocor] 20 mg PO DAILY 08/30/20 08/30/20 History calcitrioL [Calcitriol] 0.5 mcg PO AVILA 08/30/20 08/30/20 History Allergies Allergy/AdvReac Type Severity Reaction Status Date / Time metoclopramide HCl Allergy HAD Verified 08/30/20 07:35 [From Reglan] IV-CAUSED TARDIVE DYSKINESIA dulaglutide [From Trulicity] AdvReac severe Verified 08/30/20 07:35 Itching for 10 days sulfamethoxazole AdvReac CANNOT Verified 08/30/20 07:35 [From Bactrim] TAKE WITH METFORMIN PER PT/PER PHARMACIST trimethoprim [From Bactrim] AdvReac CANNOT Verified 08/30/20 07:35 TAKE WITH METFORMIN PER PT/PER PHARMACIST Physical Exam Vitals: Vital Signs Temp Pulse Resp BP Pulse Ox 08/30/20 07:42 99.2 F 92 18 142/73 97 08/30/20 06:50 92 18 142/73 97 08/30/20 05:53 99.2 F 83 18 140/55 97 08/30/20 04:02 100.8 F H 88 18 140/69 97 Intake and Output 08/29/20 08/30/20 08/30/20 22:59 06:59 14:59 Intake Total 260 Balance 260 Intake: Intake, IV Titration 260 Amount Sodium Chloride 0.9% 1, 260 000 ml @ 130 mls/hr IV . Q7H42M STA Rx#:[id number] Other: Voiding Method Toilet Toilet # Voids 1 Weight 108.862 kg 108.862 kg GENERAL: Fatigued well-nourished and in minimal distress at this time. HEAD: Atraumatic, normocephalic. EYES: Pupils equal round and reactive to light, extraocular movements intact, sclera anicteric, conjunctiva are normal. ENT:nares patent, oropharynx clear without exudates. Moist mucous membranes. NECK: Normal range of motion, supple without lymphadenopathy or JVD, no thyromegaly LUNGS: Breath sounds clear to auscultation bilaterally and equal. No wheezes rales or rhonchi. HEART: Regular rate and rhythm without murmurs, rubs or gallops.S1S2 Normal ABDOMEN: Soft, pain to palpation, decreased bowel sounds. Further exam was deferred due to her extreme sensitivity. EXTREMITIES: Normal range of motion, no pitting or edema. No clubbing or cyanosis. NEUROLOGICAL: Cranial nerves II through XII grossly intact. Normal speech, normal gait. PSYCH: Normal mood, normal affect. SKIN: Warm, Dry, normal turgor, no rashes or lesions noted. Results CBC & Chem 7: 08/30/20 04:39 08/30/20 04:39 Labs: Abnormal Lab Results - Last 24 Hours (Table) 08/30/20 08/30/20 08/30/20 Range/Units 04:39 04:39 04:39 WBC 15.8 H (3.8-10.6) k/uL Neutrophils # 13.2 H (1.3-7.7) k/uL Sodium 133 L (137-145) mmol/L Carbon Dioxide 21 L (22-30) mmol/L BUN 22 H (7-17) mg/dL Creatinine 1.66 H (0.52-1.04) mg/dL Glucose 265 H (74-99) mg/dL AST 48 H (14-36) U/L C-Reactive Protein (<10.0) mg/L Total Protein 6.1 L (6.3-8.2) g/dL Urine Appearance Cloudy H (Clear) Urine Glucose (UA) Trace H (Negative) Urine Nitrite Positive H (Negative) Ur Leukocyte Esterase Large H (Negative) Urine WBC 62 H (0-5) /hpf Urine Bacteria Many H (None) /hpf 10/11/20 Range/Units 04:39 WBC (3.8-10.6) k/uL Neutrophils # (1.3-7.7) k/uL Sodium (137-145) mmol/L Carbon Dioxide (22-30) mmol/L BUN (7-17) mg/dL Creatinine (0.52-1.04) mg/dL Glucose (74-99) mg/dL AST (14-36) U/L C-Reactive Protein 69.2 H (<10.0) mg/L Total Protein (6.3-8.2) g/dL Urine Appearance (Clear) Urine Glucose (UA) (Negative) Urine Nitrite (Negative) Ur Leukocyte Esterase (Negative) Urine WBC (0-5) /hpf Urine Bacteria (None) /hpf CT scan - abdomen: report reviewed (Suspect ruptured appendectomy) Assessment and Plan (1) Acute appendicitis Current Visit: Yes Status: Acute Code(s): K35.80 - UNSPECIFIED ACUTE APPENDICITIS SNOMED Code(s): 43127738 (2) Stage 3 chronic kidney disease Current Visit: Yes Status: Chronic Code(s): N18.30 - SNOMED Code(s): 876793816 (3) Insulin dependent diabetes mellitus Current Visit: Yes Status: Chronic Code(s): PPD5586 - SNOMED Code(s): 17046366 (4) Essential (primary) hypertension Current Visit: No Status: Chronic Code(s): I10 - ESSENTIAL (PRIMARY) HYPERTENSION SNOMED Code(s): 34622135 (5) Mixed hyperlipidemia Current Visit: No Status: Chronic Code(s): E78.2 - MIXED HYPERLIPIDEMIA SNOMED Code(s): 861408914 (6) Gout due to renal impairment Current Visit: No Status: Chronic Code(s): M10.30 - GOUT DUE TO RENAL IMPAIRMENT, UNSPECIFIED SITE SNOMED Code(s): 810665029 (7) Vitamin D deficiency Current Visit: No Status: Chronic Code(s): E55.9 - VITAMIN D DEFICIENCY, UNSPECIFIED SNOMED Code(s): 28721553 (8) Chronic lower back pain Current Visit: Yes Status: Chronic Code(s): M54.5 - LOW BACK PAIN; G89.29 - OTHER CHRONIC PAIN SNOMED Code(s): 307626276 (9) Personal history of pulmonary embolism Current Visit: Yes Status: Chronic Code(s): Z86.711 - PERSONAL HISTORY OF PULMONARY EMBOLISM SNOMED Code(s): 627749289 Plan: This time her surgery will be tomorrow morning. She'll continue on antibiotic coverage. Clear liquid diet is been ordered by general surgery. I'll resume her insulin at reduced scales. She can use her CPM device to monitor her glucose and diabetes. Reevaluate her in the next 24 hours. Thank you very much for allowing her to is pain in her care.
--- NOTE | 2020-08-30 13:22 | P.GSHP ---
History of Present Illness H&P Date: 08/30/20 CHIEF COMPLAINT: Acute appendicitis HISTORY OF PRESENT ILLNESS: The patient is a 65-year-old female with pre- existing history of diabetes type 2 insulin-dependent including morbid obesity who reports 3 days of uncontrolled diabetes. Baseline blood sugars are 150s. Her blood sugars are over 250s over last 3 days. Yesterday she developed severe acute onset right lower quadrant abdominal pain yesterday morning. She reports walking and moving is uncomfortable. No reports of fevers or chills. She had a CT of the abdomen pelvis demonstrating appendicitis with potential rupture. Since admission, she says the pain is tolerable. She reports moderate thirst. Previous surgeries include cholecystectomy. Last colonoscopy over 10 years ago. Her recent Cologuard test just last year was unremarkable. She is admitted for appendicitis. PAST MEDICAL HISTORY: See list and reviewed. Vitamin D deficiency PAST SURGICAL HISTORY: See list and reviewed MEDICATIONS: See list and reviewed ALLERGIES: See list and reviewed SOCIAL HISTORY: See list and reviewed FAMILY HISTORY: See list and reviewed REVIEW OF ORGAN SYSTEMS: CONSTITUTIONAL: Patient presented with fevers. EYES: Denies any trouble with vision. No glasses. HEENT: No difficulties with hearing. No nosebleeds. No difficulty swallowing. RESPIRATORY: Denies any troubles with breathing or dyspnea on exertion. CARDIOVASCULAR: Hypertensive heart disease GASTROINTESTINAL: Denies fatty food intolerance. Denies change in bowel habits and gas bloat. Iron deficiency anemia GENITOURINARY: Denies any blood in urine or increased urinary frequency. NEUROLOGICAL: No prior strokes. No memory impairment. MUSCULOSKELETAL: Has back pain, stiffness or joint arthritis. Gout SKIN: No current skin cancer. No rash. PSYCHIATRIC: Has anxiety. No depressive disorder. ENDOCRINE: Denies current thyroid disorders. Diabetes type 2, insulin- dependent. HEME/LYMPHATIC: Denies any lumps and bumps around the neck. No recent deep yovany ous thrombosis. BREAST: Denies current breast lumps, pain or nipple discharge. PHYSICAL EXAM: VITALS: Reviewed CONSTITUTIONAL: Well developed and in no acute distress. EYES: Conjuctivae without sclera icterus. Pupils are equally round and reactive to light. Extraocular movements grossly intact. HEAD, EARS, NOSE, THROAT: Moist buccal mucosa. Hears conversational speech. No nasal drainage. NECK: Supple. No JV distention. No thyroidomegaly. RESPIRATORY: Non-labored respirations and equal bilateral excursions. No gross wheezes. CARDIOVASCULAR: Palpable 2+ radial pulses. ABDOMEN: Soft. Tender right lower quadrant. Protuberant abdomen. MUSCULOSKELETAL: Nail and fingers with good capillary refill. SKIN: Warm and well perfused with good skin turgor. NEUROLOGIC: Cranial nerves II through XII grossly intact. Sensation upper and extremities intact. No focal or lateralizing signs. PSYCH: Appropriate affect. Alert and oriented to person, place and time. Displays appropriate insight. CLINCAL LABS: Reviewed. WBC elevated 15.8. Creatinine 1.6 is elevated. Blood sugar glucose 265. C-reactive protein elevated 69.2. IMAGING: CT of the abdomen pelvis independently reviewed demonstrating dilated appendix but fluid around the appendix. ASSESSMENT: 1. Acute appendicitis 2. Uncontrolled diabetes, insulin-dependent type 2 3. Morbid obesity excess calories, BMI 38.7 4. Hypertensive heart disease 5. Gout PLAN: 1. Surgical intervention with appendectomy described. Patient prefers robotic appendectomy approach. 2. Benefits risk of surgical intervention including bleeding, infection, placement of MARIAN drain, prolonged hospitalization also reviewed. 3. IV antibiotics initiated including Flagyl and Zosyn. 4. Insulin glucose sliding scale 5. Clear liquid diet with n.p.o. after midnight Past Medical History Past Medical History: Diabetes Mellitus, Hyperlipidemia, Hypertension, Musculoskeletal Disorder (Chronic low back pain), Osteoarthritis (OA), Pulmonary Embolus (PE) (At 20 years of age), Renal Disease (Diabetic nephropathy, stage III chronic renal failure) Additional Past Medical History / Comment(s): P.E. AT AGE 20, KIDNEY FAILURE - STAGE 3, CHRONIC BACK PAIN History of Any Multi-Drug Resistant Organisms: None Reported Past Surgical History: Section, Cholecystectomy, Orthopedic Surgery Additional Past Surgical History / Comment(s): PAIN CLINIC PROCEDURES, SHAVONNE TRIGGER RELEASE THUMB,RT KNEE SCOPE. BILAT VARICOSE VEIN STRIPPING AGE 29, spinal fusion, Past Anesthesia/Blood Transfusion Reactions: No Reported Reaction Past Psychological History: No Psychological Hx Reported Smoking Status: Never smoker Past Alcohol Use History: None Reported Past Drug Use History: None Reported - Past Family History Sister(s) Family Medical History: Cancer Mother Family Medical History: No Reported History Medications and Allergies Home Medications Medication Instructions Recorded Confirmed Type Insulin Aspart [NovoLOG Flexpen] See Protocol SQ ACHS 12/22/16 08/30/20 History Insulin Glargine [Lantus] 38 units SQ HS 12/22/16 08/30/20 History diazePAM [Valium] 5 mg PO HS PRN 03/05/18 08/30/20 History Acetaminophen-Codeine 300-30mg 1 tab PO DAILY PRN 03/22/18 08/30/20 History [Tylenol w/codeine #3] Insulin Aspart [Novolog Flexpen] 5 unit SQ ACHS 03/23/18 08/30/20 History Bisoprolol [Zebeta] 5 mg PO QAM 08/22/19 08/30/20 History Ergocalciferol [Vitamin D2] 50,000 unit PO AVILA 08/22/19 08/30/20 History Ferrous Sulfate [Feosol] 325 mg PO DAILY 08/22/19 08/30/20 History Gabapentin [Neurontin] 300 mg PO TID 08/22/19 08/30/20 History Melatonin 10 mg PO HS 08/22/19 08/30/20 History allopurinoL [Zyloprim] 100 mg PO DAILY 08/22/19 08/30/20 History sitaGLIPtin PHOS/metFORMIN HCL 1 each PO DAILY 08/22/19 08/30/20 History [Janumet Xr 50-1,000 mg Tablet] Simvastatin [Zocor] 20 mg PO DAILY 08/30/20 08/30/20 History calcitrioL [Calcitriol] 0.5 mcg PO AVILA 08/30/20 08/30/20 History Allergies Allergy/AdvReac Type Severity Reaction Status Date / Time metoclopramide HCl Allergy HAD Verified 08/30/20 07:35 [From Reglan] IV-CAUSED TARDIVE DYSKINESIA dulaglutide [From Trulicity] AdvReac severe Verified 08/30/20 07:35 Itching for 10 days sulfamethoxazole AdvReac CANNOT Verified 08/30/20 07:35 [From Bactrim] TAKE WITH METFORMIN PER PT/PER PHARMACIST trimethoprim [From Bactrim] AdvReac CANNOT Verified 08/30/20 07:35 TAKE WITH METFORMIN PER PT/PER PHARMACIST Surgical - Exam Vital Signs Temp Pulse Resp BP Pulse Ox 100.8 F H 88 18 140/69 97 08/30/20 04:02 08/30/20 04:02 08/30/20 04:02 08/30/20 04:02 08/30/20 04:02 Results - Labs 08/30/20 04:39 08/30/20 04:39 Abnormal Lab Results - Last 24 Hours (Table) 08/30/20 08/30/20 08/30/20 Range/Units 04:39 04:39 04:39 WBC 15.8 H (3.8-10.6) k/uL Neutrophils # 13.2 H (1.3-7.7) k/uL Sodium 133 L (137-145) mmol/L Carbon Dioxide 21 L (22-30) mmol/L BUN 22 H (7-17) mg/dL Creatinine 1.66 H (0.52-1.04) mg/dL Glucose 265 H (74-99) mg/dL AST 48 H (14-36) U/L C-Reactive Protein (<10.0) mg/L Total Protein 6.1 L (6.3-8.2) g/dL Urine Appearance Cloudy H (Clear) Urine Glucose (UA) Trace H (Negative) Urine Nitrite Positive H (Negative) Ur Leukocyte Esterase Large H (Negative) Urine WBC 62 H (0-5) /hpf Urine Bacteria Many H (None) /hpf 08/30/20 Range/Units 04:39 WBC (3.8-10.6) k/uL Neutrophils # (1.3-7.7) k/uL Sodium (137-145) mmol/L Carbon Dioxide (22-30) mmol/L BUN (7-17) mg/dL Creatinine (0.52-1.04) mg/dL Glucose (74-99) mg/dL AST (14-36) U/L C-Reactive Protein 69.2 H (<10.0) mg/L Total Protein (6.3-8.2) g/dL Urine Appearance (Clear) Urine Glucose (UA) (Negative) Urine Nitrite (Negative) Ur Leukocyte Esterase (Negative) Urine WBC (0-5) /hpf Urine Bacteria (None) /hpf Diabetes panel 08/30/20 Range/Units 04:39 Sodium 133 L (137-145) mmol/L Potassium 4.7 (3.5-5.1) mmol/L Chloride 106 (98-107) mmol/L Carbon Dioxide 21 L (22-30) mmol/L BUN 22 H (7-17) mg/dL Creatinine 1.66 H (0.52-1.04) mg/dL Glucose 265 H (74-99) mg/dL Calcium 8.7 (8.4-10.2) mg/dL AST 48 H (14-36) U/L ALT 32 (4-34) U/L Alkaline Phosphatase 117 (38-126) U/L Total Protein 6.1 L (6.3-8.2) g/dL Albumin 3.6 (3.5-5.0) g/dL Calcium panel 08/30/20 Range/Units 04:39 Calcium 8.7 (8.4-10.2) mg/dL Albumin 3.6 (3.5-5.0) g/dL Pituitary panel 08/30/20 Range/Units 04:39 Sodium 133 L (137-145) mmol/L Potassium 4.7 (3.5-5.1) mmol/L Chloride 106 (98-107) mmol/L Carbon Dioxide 21 L (22-30) mmol/L BUN 22 H (7-17) mg/dL Creatinine 1.66 H (0.52-1.04) mg/dL Glucose 265 H (74-99) mg/dL Calcium 8.7 (8.4-10.2) mg/dL Adrenal panel 08/30/20 Range/Units 04:39 Sodium 133 L (137-145) mmol/L Potassium 4.7 (3.5-5.1) mmol/L Chloride 106 (98-107) mmol/L Carbon Dioxide 21 L (22-30) mmol/L BUN 22 H (7-17) mg/dL Creatinine 1.66 H (0.52-1.04) mg/dL Glucose 265 H (74-99) mg/dL Calcium 8.7 (8.4-10.2) mg/dL Total Bilirubin 0.9 (0.2-1.3) mg/dL AST 48 H (14-36) U/L ALT 32 (4-34) U/L Alkaline Phosphatase 117 (38-126) U/L Total Protein 6.1 L (6.3-8.2) g/dL Albumin 3.6 (3.5-5.0) g/dL Assessment and Plan (1) Acute appendicitis Current Visit: Yes Status: Acute Code(s): K35.80 - UNSPECIFIED ACUTE APPE NDICITIS SNOMED Code(s): 86054014 (2) Insulin dependent diabetes mellitus Current Visit: Yes Status: Chronic Code(s): OPP9782 - SNOMED Code(s): 64640960 (3) Stage 3 chronic kidney disease Current Visit: Yes Status: Chronic Code(s): N18.30 - SNOMED Code(s): 544731120 (4) Gout due to renal impairment Current Visit: No Status: Chronic Code(s): M10.30 - GOUT DUE TO RENAL IMPAIRMENT, UNSPECIFIED SITE SNOMED Code(s): 418864006 (5) Vitamin D deficiency Current Visit: No Status: Chronic Code(s): E55.9 - VITAMIN D DEFICIENCY, UNSPECIFIED SNOMED Code(s): 34046274
[2020-08-30] MEDS: allopurinoL 100 MG TAB PO SCH (13:33)
[2020-08-30] MEDS: BISOPROLOL 5 MG TAB PO SCH (13:34)
[2020-08-30] MEDS: ENOXAPARIN 40 MG/0.4 ML SYRINGE SQ SCH (13:34)
[2020-08-30] MEDS: ACETAMINOPHEN IV (For NPO) 1,000 MG in EMPTY BAG 1 BAG IVPB SCH ×2 (13:44→20:56)
[2020-08-30] MEDS: PIPERACILLIN-TAZOBACTAM 3.375 GM in SODIUM CHLORIDE 0.9% 100 ML IVPB SCH (13:46)
[2020-08-30] MEDS: GABAPENTIN 300 MG CAP PO SCH ×2 (15:16→20:56)
[2020-08-30] MEDS: metroNIDAZOLE-NS PMX 500 MG in SALINE 1 100ML.BAG IVPB SCH ×2 (15:16→23:02)
[2020-08-30 19:56] LABS: Hemoglobin A1C 7.4 % (4.0-6.0)
[2020-08-30] MEDS: MELATONIN 5 MG TABLET PO SCH (20:56)
[2020-08-31] MEDS: PIPERACILLIN-TAZOBACTAM 3.375 GM in SODIUM CHLORIDE 0.9% 100 ML IVPB SCH ×3 (00:02→17:30)
[2020-08-31] MEDS: ACETAMINOPHEN IV (For NPO) 1,000 MG in EMPTY BAG 1 BAG IVPB SCH ×2 (02:16→08:19)
[2020-08-31] MEDS: SODIUM CHLORIDE 0.9% 1,000 ML IV SCH ×4 (03:11→13:39)
[2020-08-31 06:12] LABS: Basophils % (A) 0 %; Eosinophils % (A) 0 %; HCT 37.6 % (34.0-46.0); Lymphocytes # (A) 1.1 k/uL (1.0-4.8); Lymphocytes % (A) 7 %; MCH 30.9 pg (25.0-35.0); MCV 96.7 fL (80.0-100.0); Mean Platelet Volume 7.7; Monocytes # (A) 0.7 k/uL (0-1.0); Monocytes % (A) 5 %; Neutrophils # (A) 12.9 k/uL (1.3-7.7); Neutrophils % (A) 87 %; Platelet Count 171 k/uL (150-450); RBC 3.89 m/uL (3.80-5.40); RDW 13.5 % (11.5-15.5); WBC 14.9 k/uL (3.8-10.6)
[2020-08-31] MEDS: allopurinoL 100 MG TAB PO SCH (07:45)
[2020-08-31] MEDS: GABAPENTIN 300 MG CAP PO SCH ×3 (07:45→21:56)
[2020-08-31] MEDS: INSULIN ASPART (NovoLOG) 100 UNIT/ML VIAL SQ SCH ×4 (08:13→21:55)
[2020-08-31] MEDS: metroNIDAZOLE-NS PMX 500 MG in SALINE 1 100ML.BAG IVPB SCH ×2 (08:57→17:30)
[2020-08-31] MEDS: BISOPROLOL 5 MG TAB PO SCH (09:11)
--- NOTE | 2020-08-31 10:24 | P.PN ---
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 She reports her sugars have been elevated since yesterday morning. She has not been able to eat or drink much. She denies any chest pains, pressures or shortness of breath. She's been having some fever, anorexia and minimal nausea. 11 consult for management of her diabetes. She has rec eived or feet emergency room to help control her pain symptoms. She is currently on Zosyn and has received a dose of Flagyl as well. IV fluids at 130 mL an hour. 08/31/2020:patient is NPO after midnbioght for robot assisted appy today at noon. She tolerated clears overnight. She is on IV 0.9NS@100cc/hr. Anitbiotic coverage with Zosyn & FLagyl. Her cierra nis tolerable at thsi time. No chest pain of SOB. some nausea but no emesis. sugars per her CGM are 200's/ Her lantus is being held and she remains on scale, Objective - Vital Signs Vital signs: Vital Signs Temp 97.5 F L 08/31/20 07:00 Pulse 67 08/31/20 07:00 Resp 20 08/31/20 07:00 BP 97/63 08/31/20 07:00 Pulse Ox 95 08/31/20 07:00 Intake & Output 08/30/20 08/31/20 08/31/20 18:59 06:59 18:59 Intake Total 260 1200 Balance 260 1200 Weight 108.862 kg Intake: Intake, IV Titration 260 1200 Amount Sodium Chloride 0.9% 1, 1200 000 ml @ 100 mls/hr IV . Q10H JESUS Rx#:[id number] Sodium Chloride 0.9% 1, 260 000 ml @ 130 mls/hr IV . Q7H42M STA Rx#:[id number] Other: Voiding Method Toilet # Voids 1 - Exam GENERAL: Fatigued well-nourished and in minimal distress at this time. NECK: Normal range of motion, supple without lymphadenopathy or JVD, no thyromegaly LUNGS: Breath sounds clear to auscultation bilaterally and equal. No wheezes rales or rhonchi. HEART: Regular rate and rhythm without murmurs, rubs or gallops.S1S2 Normal ABDOMEN: decreased bowel sounds. Further exam was deferred due to her extreme sensitivity. EXTREMITIES: Normal range of motion, no pitting or edema. No clubbing or cyanosis. NEUROLOGICAL: Cranial nerves II through XII grossly intact. Normal speech, normal gait. PSYCH: Normal mood, normal affect. SKIN: Warm, Dry, normal turgor, no rashes or lesions noted. - Constitutional General appearance: Present: average body habitus - Labs CBC & Chem 7: 08/31/20 05:50 08/30/20 04:39 Labs: Abnormal Lab Results - Last 24 Hours (Table) 08/30/20 08/31/20 Range/Units 04:30 05:50 WBC 14.9 H (3.8-10.6) k/uL Neutrophils # 12.9 H (1.3-7.7) k/uL Hemoglobin A1c 7.4 H (4.0-6.0) % Microbiology - Last 24 Hours (Table) 08/30/20 14:48 Urine Culture - Preliminary Urine,Voided Assessment and Plan (1) Acute appendicitis Current Visit: Yes Status: Acute Code(s): K35.80 - UNSPECIFIED ACUTE APPENDICITIS SNOMED Code(s): 58812509 (2) Stage 3 chronic kidney disease Current Visit: Yes Status: Chronic Code(s): N18.30 - SNOMED Code(s): 280697251 (3) Insulin dependent diabetes mellitus Current Visit: Yes Status: Chronic Code(s): URV5345 - SNOMED Code(s): 11851143 (4) Essential (primary) hypertension Current Visit: No Status: Chronic Code(s): I10 - ESSENTIAL (PRIMARY) HYPERTENSION SNOMED Code(s): 18854744 (5) Mixed hyperlipidemia Current Visit: No Status: Chronic Code(s): E78.2 - MIXED HYPERLIPIDEMIA SNOMED Code(s): 408320878 (6) Gout due to renal impairment Current Visit: No Status: Chronic Code(s): M10.30 - GOUT DUE TO RENAL IMPAIRMENT, UNSPECIFIED SITE SNOMED Code(s): 845625158 (7) Vitamin D deficiency Current Visit: No Status: Chronic Code(s): E55.9 - VITAMIN D DEFICIENCY, UNSPECIFIED SNOMED Code(s): 65660944 (8) Chronic lower back pain Current Visit: Yes Status: Chronic Code(s): M54.5 - LOW BACK PAIN; G89.29 - OTHER CHRONIC PAIN SNOMED Code(s): 527576394 (9) Personal history of pulmonary embolism Current Visit: Yes Status: Chronic Code(s): Z86.711 - PERSONAL HISTORY OF PULMONARY EMBOLISM SNOMED Code(s): 904624586 Plan: wait on her Noon surgery She'll continue on antibiotic coverage. NPO continue nsulin scale only She can continue to use her CGM device to monitor her glucose and diabetes. I will Reevaluate her in the next 24 hours.
[2020-08-31 10:37] LABS: African American GFR (CKD) 35.8 (60.0-200.0); Anion Gap 7.2 mmol/L (4.00-12.00); BUN/Creat Ratio 12.35 Ratio (12.00-20.00); Calcium 7.4 mg/dL (8.7-10.3); Carbon Dioxide 21.8 mmol/L (21.6-31.8); Magnesium 1.5 mg/dL (1.5-2.4); Non-African American GFR(CKD) 30.9 (60.0-200.0); Potassium 4.5 mmol/L (3.5-5.5)
--- NOTE | 2020-08-31 11:36 | P.HPADDEND ---
H&P Addendum H&P Addendum Date: 08/31/20 Patient seen and evaluated. She reports improvement of her abdominal pain. We'll proceed with robotic appendectomy. Benefits and risks described. All questions addressed.
[2020-08-31] MEDS ORDERED: SODIUM CHLORIDE 0.9% 1,000 ML IV ONE (11:37)
[2020-08-31 12:49] LABS: Glucose,Whole Blood 211 mg/dL (75-99)
[2020-08-31] MEDS ORDERED: PROPOFOL 10 MG/ML 20 ML VIAL IV ONE (12:50)
[2020-08-31] MEDS ORDERED: ROCURONIUM 10 MG/ML (10 ML VIAL) IV ONE (12:50)
[2020-08-31] MEDS ORDERED: GLYCOPYRROLATE 0.2 MG/ML 2 ML VIAL ONE (12:50)
[2020-08-31] MEDS ORDERED: SUCCINYLCHOLINE CHLORIDE 100 MG/5 ML SYR IV ONE (12:50)
[2020-08-31] MEDS ORDERED: PHENYLEPHRINE-0.9% NACL SYG 1 MG/10 ML SYRINGE ONE (12:50)
[2020-08-31] MEDS ORDERED: diphenhydrAMINE 50 MG/ML 1 ML VIAL ONE (12:50)
[2020-08-31] MEDS ORDERED: ONDANSETRON 4 MG/2 ML VIAL ONE (12:50)
[2020-08-31] MEDS ORDERED: HYDROmorphone (PF) 1 MG/ML ONE (12:50)
[2020-08-31] MEDS ORDERED: ePHEDrine SULFATE/0.9% NACL/PF 50 MG/5 ML SYRINGE IV ONE (12:50)
[2020-08-31] MEDS ORDERED: MIDAZOLAM 2 MG/2 ML VIAL ONE (12:50)
[2020-08-31] MEDS ORDERED: DEXAMETHASONE SOD PHOSPHATE 10 MG/ML 1 ML VIAL ONE (12:50)
[2020-08-31] MEDS ORDERED: NEOSTIGMINE 1 MG/ML 10 ML VIAL ONE (12:50)
[2020-08-31] MEDS ORDERED: fentaNYL (PF) 50 MCG/ML 2 ML AMP ONE (12:50)
[2020-08-31] MEDS ORDERED: LIDOCAINE 1%-EPI 1:100,000 20 ML VIAL SQ ONE (13:38)
[2020-08-31] MEDS ORDERED: LACTATED RINGERS 1,000 ML IV ONE (14:30)
[2020-08-31 15:41] LABS: Glucose,Whole Blood 204 mg/dL (75-99)
--- NOTE | 2020-08-31 15:51 | P.OP ---
Date of Procedure: 08/31/20 Description of Procedure: SURGEON: VETO SHARPE MD Preoperative Diagnosis: 1. Ruptured appendicitis 2. Diabetes type 2, insulin-dependent 3. Diabetic neuropathy 4. Hypertensive heart disease 5. Morbid obesity due to excess calories, BMI 38.7 6. Hyperlipidemia 7. Iron deficiency anemia 8. Vitamin D deficiency 9. Gout 10. Diabetic nephropathy, stage III 11. Past history of pulmonary embolism Postoperative Diagnosis: 1. Gangrenous ruptured appendicitis with appendiceal abscess 2. Diabetes type 2, insulin-dependent 3. Diabetic neuropathy 4. Hypertensive heart disease 5. Morbid obesity due to excess calories, BMI 38.7 6. Hyperlipidemia 7. Iron deficiency anemia 8. Vitamin D deficiency 9. Gout 10. Diabetic nephropathy, stage III 11. Past history of pulmonary embolism Procedure(s) Performed: 1. Robotic-assisted daVinci Xi laparoscopic lysis of adhesions over 1 hr 2. Robotic-assisted daVinci Xi laparoscopic appendectomy with partial cecotomy with drainage of periappendiceal abscess 3. Placement of MARIAN drain #19 right lower quadrant/pelvis 4. Peritoneal lavage 2000 mL normal saline Anesthesia: YEE local Estimated Blood Loss (ml): 10 Pathology: other (appendix, aerobic and anerobic culture of peritoneal fluid from peritonitis) Condition: stable Disposition: floor Operative Findings: 1. Localized abscess over 20-mL drained right lower quadrant 2. Gangrenous ruptured purulent appendicitis including base of appendix 3. Abdomen irrigated with 2000-mL normal saline 4. MARAIN drain placed at right lower quadrant of abscess pocket drained 5. Appendix resected at base including portion of cecum due to ischemia of appendiceal base/cecal 6. Staple line hemostatic 7. Right round ligament freely suspensed creating internal hernia divided INDICATIONS: The patient is a 65-year-old female who presents with acute appendicitis including fevers and peritonitis consistent with sepsis. Surgical intervention was described in detail. Patient requested robotic-assisted technique. Benefits and risks, including infection, open surgery, and possibility for additional surgery was discussed at length. Informed consent was obtained. All questions of the patient and family were answered. DESCRIPTION: The patient was transferred to the operating room and placed in supine position. The patient had previously voided. The abdomen was then prepped and draped in standard sterile fashion as Ioban was placed along the abdomen to minimize any contamination of skin floor. After a timeout protocol was performed, attention was then brought to the left upper quadrant whereby a 0 degree 5 mm laparoscopic trocar entry was performed. The abdominal cavity was entered and insufflated to 15 mmHg pressure, which was tolerated well. Diagnostic laparoscopy demonstrated no injury to bowel, viscera or mesentery. Adhesions were confirmed of the right lower quadrant of omentum, small bowel to the abdominal wall. Localized abscess was found. Next a robotic 12-mm trocar was placed along the left upper quadrant after exchanging the 5 mm trocar. A 8 mm port was placed along the left lower quadrant and another 8-mm port left lateral abdominal wall. Ports were placed 10 cm apart from each other including 15-20 cm away from the target anatomy of the right pelvis. The patient was then placed in Trendelenburg position, at least 7 and right side up at least 7. The robotic da Ankita XI system was primed and docked from the left side of the patient. Using atraumatic graspers and vessel sealer, the robotic system was docked and primed as described. Instruments were interchanged by the assistant director of admissions including graspers, robotic stapler and vessel sealer. Next, attention was brought to identify the cecum. A systematic view within the abdominal cavity was started with the small bowel which was remarkable for diffuse fibrinous exudate throughout the pelvis. The base of the cecum was with inflammation and ischemia. The appendix was ruptured near the base with moderate dissection performed. The abscess of 20-mL was aspirated from the abdomen. Extensive lysis of adhesions over 1 hour was used to dissect the appendix from surrounding tissues including along the base of the cecum. Multiple 45 mm blue/green robotic staple loads were fired along the base of the appendix and incorporating the superior portion of the cecum avoiding the ileocecal valve. The staple line was hemostatic and viable. Hemostasis was checked prior to undocking the robot. The abdomen was irrigated with 2000 mL normal saline to the aspirant was clear. At the right pelvis, a suspended round ligament creating an internal hernia was identified and divided. The robot was undocked. I re-scrubbed into the case. A round #19 drain was placed via the left lower quadrant port and positioned at the right lower quadrant and pelvis. A drain stitch 2-0 nylon was placed with the bulb attached separately. The specimen was removed from the abdominal cavity with an Endo Catch bag through the 12 mm trocar at the left upper quadrant. All instruments and pneumoperitoneum were evacuated from the abdominal cavity. Local anesthetic was infiltrated to all wounds for postop analgesia. All incisions were also cleansed with diluted hydrogen peroxide. An Optifoam surgical dressing was placed over all port sites including drain site as she has elevated risk for infection. The patient had tolerated the procedure well. The patient was extubated successfully. The patient was transferred to the postanesthesia care unit in stable condition.
[2020-08-31] MEDS: HYDROmorphone 1 MG/ML 1 ML SYRINGE IVP ONE ×3 (16:01→16:30)
[2020-08-31] MEDS: ACETAMINOPHEN IV (For NPO) 1,000 MG in EMPTY BAG 1 BAG IVPB ONE ×2 (16:15→16:32)
[2020-08-31] MEDS: ENOXAPARIN 40 MG/0.4 ML SYRINGE SQ SCH (17:07)
[2020-08-31] MEDS: MAGNESIUM SULFATE-D5W PMX 1 GM in DEXTROSE/WATER 1 100ML.BAG IVPB SCH ×3 (17:31→23:08)
[2020-08-31] MEDS: MELATONIN 5 MG TABLET PO SCH (21:56)
[2020-09-01] MEDS: MAGNESIUM SULFATE-D5W PMX 1 GM in DEXTROSE/WATER 1 100ML.BAG IVPB SCH (01:16)
[2020-09-01] MEDS: ACETAMINOPHEN TAB 500 MG TAB PO SCH ×4 (01:30→18:48)
[2020-09-01] MEDS: PIPERACILLIN-TAZOBACTAM 3.375 GM in SODIUM CHLORIDE 0.9% 100 ML IVPB SCH ×4 (02:04→19:05)
[2020-09-01] MEDS: metroNIDAZOLE-NS PMX 500 MG in SALINE 1 100ML.BAG IVPB SCH ×5 (02:04→19:58)
[2020-09-01] MEDS: MORPHINE SULFATE 4 MG/ML SYRINGE IV PRN ×2 (02:27→17:30)
[2020-09-01] MEDS: ONDANSETRON 4 MG/2 ML VIAL IVP PRN ×2 (02:27→17:37)
[2020-09-01 06:45] LABS: Basophils % (A) 0 %; Eosinophils % (A) 0 %; HCT 40.4 % (34.0-46.0); HGB 12.6 gm/dL (11.4-16.0); Hypochromasia Moderate; Lymphocytes # (A) 0.7 k/uL (1.0-4.8); Lymphocytes % (A) 7 %; MCHC 31.2 g/dL (31.0-37.0); MCV 99.2 fL (80.0-100.0); Mean Platelet Volume 8.1; Monocytes # (A) 0.4 k/uL (0-1.0); Monocytes % (A) 3 %; Neutrophils # (A) 9.4 k/uL (1.3-7.7); Neutrophils % (A) 89 %; Platelet Count 179 k/uL (150-450); RBC 4.07 m/uL (3.80-5.40); RDW 13.6 % (11.5-15.5); WBC 10.6 k/uL (3.8-10.6)
[2020-09-01] MEDS: PANTOPRAZOLE 40 MG/10 ML VIAL IV SCH (07:41)
[2020-09-01] MEDS: allopurinoL 100 MG TAB PO SCH (07:43)
[2020-09-01] MEDS: INSULIN ASPART (NovoLOG) 100 UNIT/ML VIAL SQ SCH ×4 (07:44→21:49)
[2020-09-01] MEDS: GABAPENTIN 300 MG CAP PO SCH ×4 (07:44→23:36)
[2020-09-01] MEDS: BISOPROLOL 5 MG TAB PO SCH (07:45)
[2020-09-01] MEDS: SODIUM CHLORIDE 0.9% 1,000 ML IV SCH ×2 (07:45→15:57)
[2020-09-01] MEDS ORDERED: TAMSULOSIN 0.4 MG CAP.ER.24H PO STA (07:59)
[2020-09-01 10:03] LABS: African American GFR (CKD) 38.5 (60.0-200.0); Anion Gap 9.3 mmol/L (4.00-12.00); BUN/Creat Ratio 12.5 Ratio (12.00-20.00); Calcium 7.2 mg/dL (8.7-10.3); Carbon Dioxide 20.7 mmol/L (21.6-31.8); Magnesium 2.4 mg/dL (1.5-2.4); Non-African American GFR(CKD) 33.2 (60.0-200.0); Phosphorus 2.8 mg/dL (2.4-5.1); Potassium 4.5 mmol/L (3.5-5.5)
--- NOTE | 2020-09-01 12:10 | P.PN ---
<Tati Benitez - Last Filed: 09/01/20 12:06> Subjective Progress Note Date: 09/01/20 CHIEF COMPLAINT: Gangrenous ruptured appendicitis with appendiceal abscess HISTORY OF PRESENT ILLNESS: patient is postop day #1. She is complaining of urinary retention. She had to be straight cathed 2. She's had issues with urinary retention on previous surgeries. She'll be placed on Flomax. She denies any nausea or vomiting. She reports her pain is better than when she presented to the hospital. She is afebrile. White count 10.6 calcium 7.2 PHYSICAL EXAM: VITAL SIGNS: Reviewed GENERAL: Well-developed in no acute distress. HEENT: No sclera icterus. Extraocular movements grossly intact. Moist buccal mucosa. Head is atraumatic, normocephalic. Hears conversational speech. No nasal drainage. NECK: Supple without lymphadenopathy. CHEST: Non-labored respirations and equal bilateral excursions. CARDIOVASCULAR: Palpable 2+ radial pulses. ABDOMEN: Soft. Nondistended. MUSCULOSKELETAL: No clubbing or cyanosis. NEUROLOGIC: No focal or lateralizing signs. Cranial nerves II through XII grossly intact. PSYCH: Appropriate affect. Alert and oriented to person, place and time. SKIN: Well perfused. Good skin turgor. ASSESSMENT: 1. Gangrenous ruptured appendicitis with appendiceal abscessStatus post R obotic-assisted daVinci Xi laparoscopic lysis of adhesions over 1 hr, Robotic- assisted daVinci Xi laparoscopic appendectomy with partial cecotomy with drainage of periappendiceal abscess 2. Diabetes type 2, insulin-dependent 3. Diabetic neuropathy 4. Hypertensive heart disease 5. Morbid obesity due to excess calories, BMI 38.7 6. Hyperlipidemia 7. Iron deficiency anemia 8. Vitamin D deficiency 9. Gout 10. Diabetic nephropathy, stage III 11. Past history of pulmonary embolism PLAN: -patient will be started on Flomax for her urinary retention -Continue antibiotics -Continue pain medication as needed -Continue IV fluids -Continue GI and DVT prophylaxis Physician Academic Affairs Specialist note has been reviewed by physician. Signing provider agrees with the documented findings, assessment, and plan of care. Objective - Vital Signs Vital signs: Vital Signs Temp 98.8 F 09/01/20 10:20 Pulse 86 09/01/20 10:20 Resp 18 09/01/20 10:20 BP 90/53 09/01/20 10:20 Pulse Ox 100 09/01/20 10:20 Intake & Output 08/31/20 09/01/20 09/01/20 18:59 06:59 18:59 Intake Total 2830 1300 Output Total 10 1290 152 Balance 2820 10 -152 Weight 108.86 kg Intake: IV 1350 Intake, IV Titration 900 1100 Amount ACETAMINOPHEN IV (For NPO 100 ) 1,000 mg In Empty Bag 1 bag @ 400 mls/hr IVPB Q6H [facility] Rx#:[id number] Magnesium Sulfate-D5w Pmx 200 1 gm In Dextrose/Water 1 100ml.bag @ 100 mls/hr IVPB Q1H [facility] Rx#: [id number] Piperacillin-Tazobactam 3 100 .375 gm In Sodium Chloride 0.9% 100 ml @ 25 mls/hr IVPB Q8H [facility] Rx#: [id number] Piperacillin-Tazobactam 3 100 .375 gm In Sodium Chloride 0.9% 100 ml @ 25 mls/hr IVPB Q8HR [facility] Rx# :[id number] Sodium Chloride 0.9% 1, 600 700 000 ml @ 100 mls/hr IV . Q10H [facility] Rx#:[id number] metroNIDAZOLE-NS PMX 500 100 mg In Saline 1 100ml.bag @ 100 mls/hr IVPB Q8H [facility] Rx#:[id number] metroNIDAZOLE-NS PMX 500 100 mg In Saline 1 100ml.bag @ 100 mls/hr IVPB Q8HR [facility] Rx#:[id number] Oral 580 200 Output: Drainage 190 152 Left Lower Abdomen 190 152 Urine 1100 Straight 600 Estimated Blood Loss 10 Other: Voiding Method Toilet # Voids 1 - Labs CBC & Chem 7: 09/01/20 06:14 09/01/20 06:14 Labs: Abnormal Lab Results - Last 24 Hours (Table) 08/31/20 08/31/20 09/01/20 Range/Units 12:47 15:39 06:14 Neutrophils # 9.4 H (1.3-7.7) k/uL Lymphocytes # 0.7 L (1.0-4.8) k/uL Carbon Dioxide (21.6-31.8) mmol/L Creatinine (0.6-1.5) mg/dL Est GFR (CKD-EPI)AfAm (60.0-200.0) Est GFR (CKD-EPI)NonAf (60.0-200.0) Glucose (70-110) mg/dL POC Glucose (mg/dL) 211 H 204 H (75-99) mg/dL Calcium (8.7-10.3) mg/dL 09/01/20 Range/Units 06:14 Neutrophils # (1.3-7.7) k/uL Lymphocytes # (1.0-4.8) k/uL Carbon Dioxide 20.7 L (21.6-31.8) mmol/L Creatinine 1.6 H (0.6-1.5) mg/dL Est GFR (CKD-EPI)AfAm 38.5 L (60.0-200.0) Est GFR (CKD-EPI)NonAf 33.2 L (60.0-200.0) Glucose 216 H (70-110) mg/dL POC Glucose (mg/dL) (75-99) mg/dL Calcium 7.2 L (8.7-10.3) mg/dL Microbiology - Last 24 Hours (Table) 08/31/20 15:22 Gram Stain - Preliminary Appendix Wound Culture - Preliminary 08/31/20 15:22 Anaerobic Culture - Preliminary Appendix 08/30/20 14:48 Urine Culture - Final Urine,Voided <Jeannie Fisher - Last Filed: 09/01/20 18:18> Subjective please see additional documentation. Abdomen is protuberant and no peritonitis on exam. Dressings clean dry and intact. MARIAN serous. WBC now normal. Continue hospitalization due to presentation of ruptured appendicitis including urinary retention. Objective - Vital Signs Vital signs: Vital Signs Temp 98.1 F 09/01/20 17:06 Pulse 75 09/01/20 17:06 Resp 20 09/01/20 17:06 BP 99/59 09/01/20 17:06 Pulse Ox 94 L 09/01/20 17:06 Intake & Output 08/31/20 09/01/20 09/01/20 18:59 06:59 18:59 Intake Total 2830 1300 1234 Output Total 10 1290 742 Balance 2820 10 492 Weight 108.86 kg Intake: IV 1350 Intake, IV Titration 900 1100 Amount ACETAMINOPHEN IV (For NPO 100 ) 1,000 mg In Empty Bag 1 bag @ 400 mls/hr IVPB Q6H [facility] Rx#:[id number] Magnesium Sulfate-D5w Pmx 200 1 gm In Dextrose/Water 1 100ml.bag @ 100 mls/hr IVPB Q1H [facility] Rx#: [id number] Piperacillin-Tazobactam 3 100 .375 gm In Sodium Chloride 0.9% 100 ml @ 25 mls/hr IVPB Q8H [facility] Rx#: [id number] Piperacillin-Tazobactam 3 100 .375 gm In Sodium Chloride 0.9% 100 ml @ 25 mls/hr IVPB Q8HR [facility] Rx# :[id number] Sodium Chloride 0.9% 1, 600 700 000 ml @ 100 mls/hr IV . Q10H [facility] Rx#:[id number] metroNIDAZOLE-NS PMX 500 100 mg In Saline 1 100ml.bag @ 100 mls/hr IVPB Q8H [facility] Rx#:[id number] metroNIDAZOLE-NS PMX 500 100 mg In Saline 1 100ml.bag @ 100 mls/hr IVPB Q8HR [facility] Rx#:[id number] Oral 420 466 9567 Output: Drainage 190 442 Left Lower Abdomen 190 442 Urine 1100 300 Straight 600 300 Estimated Blood Loss 10 Other: Voiding Method Toilet Toilet # Voids 1 - Labs CBC & Chem 7: 09/01/20 06:14 09/01/20 06:14 Labs: Abnormal Lab Results - Last 24 Hours (Table) 09/01/20 09/01/20 Range/Units 06:14 06:14 Neutrophils # 9.4 H (1.3-7.7) k/uL Lymphocytes # 0.7 L (1.0-4.8) k/uL Carbon Dioxide 20.7 L (21.6-31.8) mmol/L Creatinine 1.6 H (0.6-1.5) mg/dL Est GFR (CKD-EPI)AfAm 38.5 L (60.0-200.0) Est GFR (CKD-EPI)NonAf 33.2 L (60.0-200.0) Glucose 216 H (70-110) mg/dL Calcium 7.2 L (8.7-10.3) mg/dL Microbiology - Last 24 Hours (Table) 08/31/20 15:22 Gram Stain - Preliminary Appendix Wound Culture - Preliminary 08/31/20 15:22 Anaerobic Culture - Preliminary Appendix 08/30/20 14:48 Urine Culture - Final Urine,Voided Assessment and Plan (1) Acute appendicitis Current Visit: Yes Status: Acute Code(s): K35.80 - UNSPECIFIED ACUTE APPENDICITIS SNOMED Code(s): 81371207 (2) Insulin dependent diabetes mellitus Current Visit: Yes Status: Chronic Code(s): XWJ7018 - SNOMED Code(s): 90236700 (3) Stage 3 chronic kidney disease Current Visit: Yes Status: Chronic Code(s): N18.30 - SNOMED Code(s): 225694257 (4) Gout due to renal impairment Current Visit: No Status: Chronic Code(s): M10.30 - GOUT DUE TO RENAL IMPAIRMENT, UNSPECIFIED SITE SNOMED Code(s): 528183781 (5) Vitamin D deficiency Current Visit: No Status: Chronic Code(s): E55.9 - VITAMIN D DEFICIENCY, UNSPECIFIED SNOMED Code(s): 27051081
[2020-09-01] MEDS: ENOXAPARIN 40 MG/0.4 ML SYRINGE SQ SCH (13:51)
[2020-09-01] MEDS: HYDROcodone/APAP 5-325MG 1 EACH TAB PO PRN ×2 (13:52→20:41)
--- NOTE | 2020-09-01 14:27 | P.PN ---
Subjective Progress Note Date: 09/01/20 This is a 65-year-old insulin-dependent diabetic woman the practice. 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 She reports her sugars have been elevated since yesterday morning. She has not been able to eat or drink much. She denies any chest pains, pressures or shortness of breath. She's been having some fever, anorexia and minimal nausea. 11 consult for management of her diabetes. She has received or feet emergency room to help control her pain symptoms. She is currently on Zosyn and has received a dose of Flagyl as well. IV fluids at 130 mL an hour. 08/31/2020:patient is NPO after midnbioght for robot assisted appy today at noon. She tolerated clears overnight. She is on IV 0.9NS@100cc/hr. Anitbiotic coverage with Zosyn & FLagyl. Her cierra nis tolerable at thsi time. No chest pain of SOB. some nausea but no emesis. sugars per her CGM are 200's/ Her lantus is being held and she remains on scale, 09/01/2020 postop day 1 for laparoscopic appendectomy with lysis of adhesions,partial cecotomy with drainage of abscess,secondary to gangrenous ruptured appendicitis with appendiceal abscess.tolerated procedure well. cultures pending. Maintained on, zosyn, flagyl. t-max 99 with normal wbc. creatinine nearing baseline at 1.6. Tolerating clear liquid consistent carb diet with no nausea vomiting or diarrhea.pain controlled, currently rated at "3". patient has history of postoperative urinary retention. Has required straight cath 2 in addition to being on Flomax. Ambulating in hallway, tolerating exertion well. Denies chest pain, palpitations or shortness of breath. Objective - Vital Signs Vital signs: Vital Signs Temp 98.8 F 09/01/20 10:20 Pulse 86 09/01/20 10:20 Resp 18 09/01/20 10:20 BP 90/53 09/01/20 10:20 Pulse Ox 100 09/01/20 10:20 Intake & Output 08/31/20 09/01/20 09/01/20 18:59 06:59 18:59 Intake Total 2830 1300 Output Total 10 1290 152 Balance 2820 10 -152 Weight 108.86 kg Intake: IV 1350 Intake, IV Titration 900 1100 Amount ACETAMINOPHEN IV (For NPO 100 ) 1,000 mg In Empty Bag 1 bag @ 400 mls/hr IVPB Q6H [facility] Rx#:[id number] Magnesium Sulfate-D5w Pmx 200 1 gm In Dextrose/Water 1 100ml.bag @ 100 mls/hr IVPB Q1H [facility] Rx#: [id number] Piperacillin-Tazobactam 3 100 .375 gm In Sodium Chloride 0.9% 100 ml @ 25 mls/hr IVPB Q8H [facility] Rx#: [id number] Piperacillin-Tazobactam 3 100 .375 gm In Sodium Chloride 0.9% 100 ml @ 25 mls/hr IVPB Q8HR [facility] Rx# :[id number] Sodium Chloride 0.9% 1, 600 700 000 ml @ 100 mls/hr IV . Q10H [facility] Rx#:[id number] metroNIDAZOLE-NS PMX 500 100 mg In Saline 1 100ml.bag @ 100 mls/hr IVPB Q8H [facility] Rx#:[id number] metroNIDAZOLE-NS PMX 500 100 mg In Saline 1 100ml.bag @ 100 mls/hr IVPB Q8HR [facility] Rx#:[id number] Oral 580 200 Output: Drainage 190 152 Left Lower Abdomen 190 152 Urine 1100 Straight 600 Estimated Blood Loss 10 Other: Voiding Method Toilet # Voids 1 - Exam PHYSICAL EXAM: VITAL SIGNS: [as above] GENERAL: alert and oriented 3,sitting up in bed, no acute distress HEENT: Conjunctivae normal. eyes normal. oral mucosa moist NECK: No JVD. No thyroid enlargement. CARDIOVASCULAR: S1, S2 regular. No murmur RESPIRATION: Breath sounds diminished in the bases. No rhonchi,bibasilarcrackles. ABDOMEN: Soft, status post surgery,No guarding.MARIAN with serous drainage, positive bowel sounds. LEGS: No edema. no swelling.no clubbing or cyanosis, no calf tenderness. NERVOUS SYSTEM: Cranial N 2-12 grossly normal. Moves all 4 limbs. No focal deficits. Strength and sensation grossly intact.. Skin: warm and dry,no rash - Labs CBC & Chem 7: 09/01/20 06:14 09/01/20 06:14 Labs: Abnormal Lab Results - Last 24 Hours (Table) 08/31/20 08/31/20 09/01/20 Range/Units 12:47 15:39 06:14 Neutrophils # 9.4 H (1.3-7.7) k/uL Lymphocytes # 0.7 L (1.0-4.8) k/uL Carbon Dioxide (21.6-31.8) mmol/L Creatinine (0.6-1.5) mg/dL Est GFR (CKD-EPI)AfAm (60.0-200.0) Est GFR (CKD-EPI)NonAf (60.0-200.0) Glucose (70-110) mg/dL POC Glucose (mg/dL) 211 H 204 H (75-99) mg/dL Calcium (8.7-10.3) mg/dL 09/01/20 Range/Units 06:14 Neutrophils # (1.3-7.7) k/uL Lymphocytes # (1.0-4.8) k/uL Carbon Dioxide 20.7 L (21.6-31.8) mmol/L Creatinine 1.6 H (0.6-1.5) mg/dL Est GFR (CKD-EPI)AfAm 38.5 L (60.0-200.0) Est GFR (CKD-EPI)NonAf 33.2 L (60.0-200.0) Glucose 216 H (70-110) mg/dL POC Glucose (mg/dL) (75-99) mg/dL Calcium 7.2 L (8.7-10.3) mg/dL Microbiology - Last 24 Hours (Table) 08/31/20 15:22 Gram Stain - Preliminary Appendix Wound Culture - Preliminary 08/31/20 15:22 Anaerobic Culture - Preliminary Appendix 08/30/20 14:48 Urine Culture - Final Urine,Voided Assessment and Plan Assessment: (1) Acute appendicitis with lysis of adhesions, partial cecotomy and drainage of appendiceal abscess secondary to ruptured gangrenous appendicitis ,cultures pending Current Visit: Yes Status: Acute Code(s): K35.80 - UNSPECIFIED ACUTE APPENDICITIS SNOMED Code(s): 27300957 (2) Stage 3 chronic kidney disease Current Visit: Yes Status: Chronic Code(s): N18.30 - SNOMED Code(s): 169817507 (3) Insulin dependent diabetes mellitus,hemoglobin A1c 7.4 Current Visit: Yes Status: Chronic Code(s): VMH5128 - SNOMED Code(s): 02566190 (4) Essential (primary) hypertension Current Visit: No Status: Chronic Code(s): I10 - ESSENTIAL (PRIMARY) HYPERTENSION SNOMED Code(s): 16737635 (5) Mixed hyperlipidemia Current Visit: No Status: Chronic Code(s): E78.2 - MIXED HYPERLIPIDEMIA SNOMED Code(s): 685481777 (6) Gout due to renal impairment Current Visit: No Status: Chronic Code(s): M10.30 - GOUT DUE TO RENAL IMPAIRMENT, UNSPECIFIED SITE SNOMED Code(s): 811070830 (7) Vitamin D deficiency Current Visit: No Status: Chronic Code(s): E55.9 - VITAMIN D DEFICIENCY, UNSPECIFIED SNOMED Code(s): 30888083 (8) Chronic lower back pain Current Visit: Yes Status: Chronic Code(s): M54.5 - LOW BACK PAIN; G89.29 - OTHER CHRONIC PAIN SNOMED Code(s): 846012126 (9)History of pulmonary embolism Current Visit: Yes Status: Chronic Code(s): Z86.711 - PERSONAL HISTORY OF PULMONARY EMBOLISM SNOMED Code(s): 314776735 (10) postoperative urinary retention in a patient with history of. (11) morbid obesity, BMI 38.7 plan: Continue on current medication regimen, monitoring and symptomatic treatment. Increase ambulation as tolerated.Continue Flomax. Aggressive pulmonary toileting with incentive spirometer ordered. pain management,diet advancement as per surgery.maintain IV fluid hydration. close monitoring of renal function with repeat labs ordered for a.m. titrate control of blood sugars with close monitoring of Accu-Cheks.GI and DVT prophylaxis in place with Lovenox and Protonix. The impression and plan of care has been dictated as directed. : I performed a history and examination of this patient, discussed the same with the dictator. I agree with the dictator's note ,documented as a scribe. Any additional findings or plans will be noted.
[2020-09-01] MEDS ORDERED: SODIUM CHLORIDE 0.9% 1,000 ML IV ONE ×3 (14:30→21:19)
[2020-09-01] MEDS ORDERED: CALCIUM CARBONATE 500 MG CHEWABLE PO SCH (17:30)
--- NOTE | 2020-09-01 18:17 | P.PN ---
Progress Note - Text Progress Note Date: 09/01/20 Patient reevaluated this evening after notification from nurse that patient developed acute onset abdominal pain. She has been transferred from the surgical floor to the pediatric floor. Lazo catheter has been placed due to pre-existing urinary retention. Per description of patient, she reports recurrent urinary retention after prior surgeries. She is now on Flomax. MARIAN with moderate serous output. Urine darkbut clear. Recommend continue IV fluid hydration. Diet as tolerated. Continue hospitalization due to ruptured appendicitis
[2020-09-01] MEDS ORDERED: ONDANSETRON 4 MG/2 ML VIAL IVP STA (21:18)
[2020-09-01] MEDS ORDERED: FUROSEMIDE 10 MG/ML 2 ML VIAL IV ONE (23:11)
[2020-09-01] MEDS ORDERED: DEXAMETHASONE SOD PHOSPHATE 10 MG/ML 1 ML VIAL IV ONE (23:15)
[2020-09-01] MEDS ORDERED: LORazepam 2 MG/ML INJ IV PRN (23:27)
[2020-09-01] MEDS: MELATONIN 5 MG TABLET PO SCH (23:36)
[2020-09-02] MEDS: ACETAMINOPHEN TAB 500 MG TAB PO SCH ×5 (00:37→23:42)
[2020-09-02] MEDS: SODIUM CHLORIDE 0.9% 1,000 ML IV SCH ×3 (00:37→16:14)
[2020-09-02] MEDS: HYDROmorphone 1 MG/ML 1 ML SYRINGE IVP PRN ×6 (01:36→22:53)
[2020-09-02] MEDS: metroNIDAZOLE-NS PMX 500 MG in SALINE 1 100ML.BAG IVPB SCH ×3 (02:32→18:43)
[2020-09-02] MEDS: PIPERACILLIN-TAZOBACTAM 3.375 GM in SODIUM CHLORIDE 0.9% 100 ML IVPB SCH ×3 (03:17→18:51)
[2020-09-02] MEDS: DEXAMETHASONE SOD PHOSPHATE 4 MG/ML 1 ML VIAL IV SCH ×2 (06:22→11:32)
[2020-09-02] MEDS: INSULIN ASPART (NovoLOG) 100 UNIT/ML VIAL SQ SCH ×4 (06:23→20:47)
[2020-09-02] MEDS: GABAPENTIN 300 MG CAP PO SCH ×3 (08:10→20:48)
[2020-09-02] MEDS: TAMSULOSIN 0.4 MG CAP.ER.24H PO SCH (08:11)
[2020-09-02] MEDS: allopurinoL 100 MG TAB PO SCH (08:11)
--- NOTE | 2020-09-02 08:16 | P.PN ---
<ElsyTati valles - Last Filed: 09/02/20 08:09> Subjective Progress Note Date: 09/02/20 CHIEF COMPLAINT: Gangrenous ruptured appendicitis with appendiceal abscess HISTORY OF PRESENT ILLNESS: Patient seen and examined with Dr. Fisher. Patient is postop day #2. Patient had nausea yesterday evening. Nausea has improved with the Decadron. Her abdominal pain is Improving. She did require the Dilaudid. Lazo catheter was inserted yesterday Due to pre-existing urinary retention. Patient was having difficulty urinating yesterday. She is also on Flomax. She is tolerating her diet. Afebrile. Ionized calcium 4.5. cBC, BMP mag alk phos pending PHYSICAL EXAM: VITAL SIGNS: Reviewed GENERAL: Well-developed in no acute distress. HEENT: No sclera icterus. Extraocular movements grossly intact. Moist buccal mucosa. Head is atraumatic, normocephalic. Hears conversational speech. No nasal drainage. NECK: Supple without lymphadenopathy. CHEST: Non-labored respirations and equal bilateral excursions. CARDIOVASCULAR: Palpable 2+ radial pulses. ABDOMEN: Soft. Nondistended. MARIAN drain serous drainage MUSCULOSKELETAL: No clubbing or cyanosis. NEUROLOGIC: No focal or lateralizing signs. Cranial nerves II through XII grossly intact. PSYCH: Appropriate affect. Alert and oriented to person, place and time. SKIN: Well perfused. Good skin turgor. ASSESSMENT: 1. Gangrenous ruptured appendicitis with appendiceal abscess Status post Robotic-assisted daVinci Xi laparoscopic lysis of adhesions over 1 hr, Robotic- assisted daVinci Xi laparoscopic appendectomy with partial cecotomy with drainage of periappendiceal abscess 2. Diabetes type 2, insulin-dependent 3. Diabetic neuropathy 4. Hypertensive heart disease 5. Morbid obesity due to excess calories, BMI 38.7 6. Hyperlipidemia 7. Iron deficiency anemia 8. Vitamin D deficiency 9. Gout 10. Diabetic nephropathy, stage III 11. Past history of pulmonary embolism PLAN: -Continue Flomax for history of urinary retention -Continue antibiotics -Continue pain medication as needed -Continue IV fluids -Encourage patient to ambulate -Continue GI and DVT prophylaxis Physician Vat Cleaner note has been reviewed by physician. Signing provider agrees with the documented findings, assessment, and plan of care. Objective - Vital Signs Vital signs: Vital Signs Temp 97.7 F 09/01/20 23:00 Pulse 75 10/13/20 23:00 Resp 18 09/01/20 23:00 BP 108/64 09/01/20 23:00 Pulse Ox 95 09/01/20 23:00 Intake & Output 09/01/20 09/02/20 09/02/20 18:59 06:59 18:59 Intake Total 1234 290 Output Total 932 1185 Balance 302 -895 Intake: Oral 1234 290 Output: Drainage 532 760 Left Lower Abdomen 532 760 Urine 400 425 Straight 400 Other: Voiding Method Indwelling Catheter Indwelling Catheter - Labs CBC & Chem 7: 09/01/20 06:14 09/01/20 06:14 Labs: Abnormal Lab Results - Last 24 Hours (Table) 09/01/20 Range/Units 06:14 Carbon Dioxide 20.7 L (21.6-31.8) mmol/L Creatinine 1.6 H (0.6-1.5) mg/dL Est GFR (CKD-EPI)AfAm 38.5 L (60.0-200.0) Est GFR (CKD-EPI)NonAf 33.2 L (60.0-200.0) Glucose 216 H (70-110) mg/dL Calcium 7.2 L (8.7-10.3) mg/dL Microbiology - Last 24 Hours (Table) 08/31/20 15:22 Gram Stain - Preliminary Appendix Wound Culture - Preliminary Gram Neg Bacilli <Jeannie Fisher - Last Filed: 09/02/20 20:46> Subjective Patient seen and evaluated with above. Patient reports moderate improvement of abdominal pain this morning. She feels well. Nausea is resolved. She is on scheduled Decadron. MARIAN output is appropriate to for over 2 L normal saline peritoneal wash. Body fluid creatinine to blood urine creatinine less than 1.0. Creatinine however is elevated with her history of pre-existing stage III chronic renal insufficiency due to diabetic nephropathy. Recommend consultation to nephrology for pre-existing chronic kidney disease. Continue IV antibiotics. Microbiology culture growing E. coli sensitive. Infectious disease consultation obtained. Continue hospitalization due to ruptured appendicitis with peritonitis. Objective - Vital Signs Vital signs: Vital Signs Temp 96.8 F L 09/02/20 12:24 Pulse 94 09/02/20 16:08 Resp 20 09/02/20 16:08 BP 114/68 09/02/20 16:08 Pulse Ox 95 10/14/20 16:08 Intake & Output 09/02/20 09/02/20 09/03/20 06:59 18:59 06:59 Intake Total 290 1100 540 Output Total 1185 375 75 Balance -895 725 465 Weight 117.8 kg Intake: Oral 290 1100 540 Output: Drainage 760 125 75 Left Lower Abdomen 760 125 75 Urine 425 250 Straight 100 Other: Voiding Method Indwelling Catheter Toilet - Labs CBC & Chem 7: 09/02/20 07:18 09/02/20 07:18 Labs: Abnormal Lab Results - Last 24 Hours (Table) 09/02/20 09/02/20 09/02/20 Range/Units 07:18 07:18 17:06 WBC 15.3 H (3.8-10.6) k/uL MCV 101.1 H (80.0-100.0) fL Neutrophils # 14.3 H (1.3-7.7) k/uL Lymphocytes # 0.7 L (1.0-4.8) k/uL Sodium 135 L (137-145) mmol/L Chloride 110 H (98-107) mmol/L Carbon Dioxide 14 L (22-30) mmol/L BUN 26 H (7-17) mg/dL Creatinine 1.91 H (0.52-1.04) mg/dL Glucose 257 H (74-99) mg/dL POC Glucose (mg/dL) 366 H (75-99) mg/dL Calcium 6.9 L (8.4-10.2) mg/dL 09/02/20 09/02/20 Range/Units 18:27 20:24 WBC (3.8-10.6) k/uL MCV (80.0-100.0) fL Neutrophils # (1.3-7.7) k/uL Lymphocytes # (1.0-4.8) k/uL Sodium (137-145) mmol/L Chloride (98-107) mmol/L Carbon Dioxide (22-30) mmol/L BUN (7-17) mg/dL Creatinine (0.52-1.04) mg/dL Glucose (74-99) mg/dL POC Glucose (mg/dL) 359 H 377 H (75-99) mg/dL Calcium (8.4-10.2) mg/dL Microbiology - Last 24 Hours (Table) 08/31/20 15:22 Gram Stain - Final Appendix Wound Culture - Final Escherichia coli Assessment and Plan (1) Acute appendicitis Current Visit: Yes Status: Acute Code(s): K35.80 - UNSPECIFIED ACUTE APPENDICITIS SNOMED Code(s): 49264262 (2) Insulin dependent diabetes mellitus Current Visit: Yes Status: Chronic Code(s): CDI8647 - SNOMED Code(s): 19216634 (3) Stage 3 chronic kidney disease Current Visit: Yes Status: Chronic Code(s): N18.30 - SNOMED Code(s): 900253487 (4) Gout due to renal impairment Current Visit: No Status: Chronic Code(s): M10.30 - GOUT DUE TO RENAL IMPAIRMENT, UNSPECIFIED SITE SNOMED Code(s): 499744035 (5) Vitamin D deficiency Current Visit: No Status: Chronic Code(s): E55.9 - VITAMIN D DEFICIENCY, UNSPECIFIED SNOMED Code(s): 23752799
[2020-09-02] MEDS: BISOPROLOL 5 MG TAB PO SCH (08:47)
[2020-09-02] MEDS: PANTOPRAZOLE 40 MG/10 ML VIAL IV SCH (08:47)
[2020-09-02 08:52] LABS: Basophils % (A) 0 %; Eosinophils % (A) 0 %; HCT 43.3 % (34.0-46.0); HGB 13.5 gm/dL (11.4-16.0); Hypochromasia Marked; Lymphocytes # (A) 0.7 k/uL (1.0-4.8); Lymphocytes % (A) 4 %; MCH 31.6 pg (25.0-35.0); MCHC 31.2 g/dL (31.0-37.0); MCV 101.1 fL (80.0-100.0); Macrocytosis Slight; Mean Platelet Volume 8.5; Monocytes # (A) 0.2 k/uL (0-1.0); Monocytes % (A) 1 %; Neutrophils # (A) 14.3 k/uL (1.3-7.7); Neutrophils % (A) 94 %; Platelet Count 335 k/uL (150-450); RBC 4.28 m/uL (3.80-5.40); RDW 13.8 % (11.5-15.5); WBC 15.3 k/uL (3.8-10.6)
[2020-09-02 08:59] LABS: Calcium 6.9 mg/dL (8.4-10.2); Magnesium 2.3 mg/dL (1.6-2.3); Phosphorus 4.3 mg/dL (2.5-4.5)
[2020-09-02] MEDS: ENOXAPARIN 30 MG/0.3 ML SYRINGE SQ SCH (12:01)
--- NOTE | 2020-09-02 16:09 | P.PN ---
Subjective Progress Note Date: 09/02/20 This is a 65-year-old insulin-dependent diabetic woman the practice. 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 She reports her sugars have been elevated since yesterday morning. She has not been able to eat or drink much. She denies any chest pains, pressures or shortness of breath. She's been having some fever, anorexia and minimal nausea. 11 consult for management of her diabetes. She has received or feet emergency room to help control her pain symptoms. She is currently on Zosyn and has received a dose of Flagyl as well. IV fluids at 130 mL an hour. 08/31/2020:patient is NPO after midnbioght for robot assisted appy today at noon. She tolerated clears overnight. She is on IV 0.9NS@100cc/hr. Anitbiotic coverage with Zosyn & FLagyl. Her cierra nis tolerable at thsi time. No chest pain of SOB. some nausea but no emesis. sugars per her CGM are 200's/ Her lantus is being held and she remains on scale, 09/01/2020 postop day 1 for laparoscopic appendectomy with lysis of adhesions,partial cecotomy with drainage of abscess,secondary to gangrenous ruptured appendicitis with appendiceal abscess.tolerated procedure well. cultures pending. Maintained on, zosyn, flagyl. t-max 99 with normal wbc. creatinine nearing baseline at 1.6. Tolerating clear liquid consistent carb diet with no nausea vomiting or diarrhea.pain controlled, currently rated at "3". patient has history of postoperative urinary retention. Has required straight cath 2 in addition to being on Flomax. Ambulating in hallway, tolerating exertion well. Denies chest pain, palpitations or shortness of breath. 09/02/2020 patient reported significant pain with nausea last night and through the director of early childhood hours, significantly improved with Dilaudid and Decadron. Di et advanced yesterday, tolerating well with no nausea or vomiting today. Blood sugars in the 200s. Worsening renal function, BUN 26, creatinine 1.91 potassium 5, magnesium, phosphorus within normal limits. Lazo catheter to be discontinued this morning, pending. Afebrile, WBC increased to 15.3. Objective - Vital Signs Vital signs: Vital Signs Temp 96.8 F L 09/02/20 12:24 Pulse 80 09/02/20 12:24 Resp 18 09/02/20 12:24 BP 126/68 09/02/20 12:24 Pulse Ox 94 L 09/02/20 12:24 Intake & Output 09/01/20 09/02/20 09/02/20 18:59 06:59 18:59 Intake Total 1234 290 600 Output Total 932 1185 175 Balance 302 -895 425 Weight 117.8 kg Intake: Oral 1234 290 600 Output: Drainage 532 760 75 Left Lower Abdomen 532 760 75 Urine 400 425 100 Straight 400 100 Other: Voiding Method Indwelling Catheter Indwelling Catheter Indwelling Catheter - Exam PHYSICAL EXAM: VITAL SIGNS: [as above] GENERAL: alert and oriented 3,sitting up in bed, no acute distress HEENT: Conjunctivae normal. eyes normal. oral mucosa moist NECK: No JVD. No thyroid enlargement. CARDIOVASCULAR: S1, S2 regular. No murmur RESPIRATION: Breath sounds diminished in the bases. ABDOMEN: Soft, status post surgery,No guarding.MARIAN with serous drainage, positive bowel sounds. LEGS: No edema. no swelling.no clubbing or cyanosis, no calf tenderness. NERVOUS SYSTEM: Cranial N 2-12 grossly normal. Moves all 4 limbs. No focal deficits. Strength and sensation grossly intact.. Skin: warm and dry,no rash - Labs CBC & Chem 7: 09/02/20 07:18 09/02/20 07:18 Labs: Abnormal Lab Results - Last 24 Hours (Table) 09/02/20 09/02/20 Range/Units 07:18 07:18 WBC 15.3 H (3.8-10.6) k/uL MCV 101.1 H (80.0-100.0) fL Neutrophils # 14.3 H (1.3-7.7) k/uL Lymphocytes # 0.7 L (1.0-4.8) k/uL Sodium 135 L (137-145) mmol/L Chloride 110 H (98-107) mmol/L Carbon Dioxide 14 L (22-30) mmol/L BUN 26 H (7-17) mg/dL Creatinine 1.91 H (0.52-1.04) mg/dL Glucose 257 H (74-99) mg/dL Calcium 6.9 L (8.4-10.2) mg/dL Microbiology - Last 24 Hours (Table) 08/31/20 15:22 Gram Stain - Preliminary Appendix Wound Culture - Preliminary Gram Neg Bacilli Assessment and Plan Assessment: (1) Acute appendicitis with lysis of adhesions, partial cecotomy and drainage of appendiceal abscess secondary to ruptured gangrenous appendicitis ,cultures p ending Current Visit: Yes Status: Acute Code(s): K35.80 - UNSPECIFIED ACUTE APPENDICITIS SNOMED Code(s): 77241442 (2) Stage 3 chronic kidney disease Current Visit: Yes Status: Chronic Code(s): N18.30 - SNOMED Code(s): 974099745 (3) Insulin dependent diabetes mellitus,hemoglobin A1c 7.4, hyperglycemic Current Visit: Yes Status: Chronic Code(s): LFS5173 - SNOMED Code(s): 99120178 (4) Essential (primary) hypertension Current Visit: No Status: Chronic Code(s): I10 - ESSENTIAL (PRIMARY) HYPERTENSION SNOMED Code(s): 19480702 (5) Mixed hyperlipidemia Current Visit: No Status: Chronic Code(s): E78.2 - MIXED HYPERLIPIDEMIA SNOMED Code(s): 397481806 (6) Gout due to renal impairment Current Visit: No Status: Chronic Code(s): M10.30 - GOUT DUE TO RENAL IMPAIRMENT, UNSPECIFIED SITE SNOMED Code(s): 294577069 (7) Vitamin D deficiency Current Visit: No Status: Chronic Code(s): E55.9 - VITAMIN D DEFICIENCY, UNSPECIFIED SNOMED Code(s): 74827725 (8) Chronic lower back pain Current Visit: Yes Status: Chronic Code(s): M54.5 - LOW BACK PAIN; G89.29 - OTHER CHRONIC PAIN SNOMED Code(s): 876695937 (9)History of pulmonary embolism Current Visit: Yes Status: Chronic Code(s): Z86.711 - PERSONAL HISTORY OF PULMONARY EMBOLISM SNOMED Code(s): 541928418 (10) postoperative urinary retention in a patient with history of. (11) morbid obesity, BMI 38.7 plan: Continue on current medication regimen, monitoring and symptomatic treatment. Maintain Zosyn, Flagyl .IV fluid hydration .Increase ambulation as tolerated.DC Lazo-pending .if unable to void, reinsert Lazo and consult urology -discussed with RN ,maintain Flomax. Reinforced aggressive pulmonary toileting with incentive spirometer. Pain management as per surgery.long-acting insulin resumed, close monitoring of Accu-Cheks. low potassium diet .Close monitoring of renal function, electrolytes with repeat labs ordered for a.m. The impression and plan of care has been dictated as directed. : I performed a history and examination of this patient, discussed the same with the dictator. I agree with the dictator's note ,documented as a scribe. Any additional findings or plans will be noted.
[2020-09-02 17:09] LABS: Glucose,Whole Blood 366 mg/dL (75-99)
[2020-09-02] MEDS ORDERED: DEXAMETHASONE SOD PHOSPHATE 4 MG/ML 1 ML VIAL IV SCH ×2 (18:00)
[2020-09-02] MEDS ORDERED: INSULIN ASPART (NovoLOG) 100 UNIT/ML VIAL SQ ONE ×2 (18:18→20:37)
[2020-09-02 18:29] LABS: Glucose,Whole Blood 359 mg/dL (75-99)
[2020-09-02 20:25] LABS: Glucose,Whole Blood 377 mg/dL (75-99)
[2020-09-02] MEDS: MELATONIN 5 MG TABLET PO SCH (20:45)
[2020-09-02] MEDS ORDERED: NON FORMULARY DRUG (Insulin Glargine 100 UNIT/ML Vial) SQ SCH (21:00)
[2020-09-02] MEDS ORDERED: INSULIN DETEMIR (LEVEMIR) 100 UNIT/ML SYR SQ SCH (21:00)
[2020-09-03] MEDS: SODIUM CHLORIDE 0.9% 1,000 ML IV SCH ×3 (01:26→19:30)
[2020-09-03] MEDS: metroNIDAZOLE-NS PMX 500 MG in SALINE 1 100ML.BAG IVPB SCH ×3 (02:59→19:14)
[2020-09-03] MEDS: PIPERACILLIN-TAZOBACTAM 3.375 GM in SODIUM CHLORIDE 0.9% 100 ML IVPB SCH ×3 (02:59→19:14)
[2020-09-03] MEDS: HYDROmorphone 1 MG/ML 1 ML SYRINGE IVP PRN ×3 (03:09→18:21)
[2020-09-03] MEDS ORDERED: INSULIN ASPART (NovoLOG) 100 UNIT/ML VIAL SQ PRN (06:30)
[2020-09-03] MEDS: ACETAMINOPHEN TAB 500 MG TAB PO SCH ×3 (06:31→18:16)
[2020-09-03 06:34] LABS: Glucose,Whole Blood 357 mg/dL (75-99)
[2020-09-03] MEDS: INSULIN ASPART (NovoLOG) 100 UNIT/ML VIAL SQ SCH ×4 (06:45→21:09)
[2020-09-03 07:14] LABS: Basophils % (A) 0 %; Eosinophils # (A) 0.1 k/uL (0-0.7); Eosinophils % (A) 1 %; HCT 40.9 % (34.0-46.0); HGB 12.7 gm/dL (11.4-16.0); Hypochromasia Marked; Lymphocytes # (A) 0.9 k/uL (1.0-4.8); Lymphocytes % (A) 7 %; MCH 31.3 pg (25.0-35.0); MCHC 31.1 g/dL (31.0-37.0); MCV 100.7 fL (80.0-100.0); Macrocytosis Slight; Mean Platelet Volume 7.9; Monocytes # (A) 0.3 k/uL (0-1.0); Monocytes % (A) 2 %; Neutrophils # (A) 11.9 k/uL (1.3-7.7); Neutrophils % (A) 90 %; Platelet Count 280 k/uL (150-450); RBC 4.06 m/uL (3.80-5.40); RDW 13.9 % (11.5-15.5); WBC 13.3 k/uL (3.8-10.6)
[2020-09-03 07:31] LABS: Magnesium 2.3 mg/dL (1.6-2.3); Phosphorus 4.3 mg/dL (2.5-4.5); Potassium 4.8 mmol/L (3.5-5.1)
--- NOTE | 2020-09-03 08:47 | P.PN ---
<Tati Benitez - Last Filed: 09/03/20 08:42> Subjective Progress Note Date: 09/03/20 CHIEF COMPLAINT: Gangrenous ruptured appendicitis with appendiceal abscess HISTORY OF PRESENT ILLNESS: Patient seen and examined with Dr. Fisher. Patient is postop day #3. Patient denies any further nausea or vomiting. She is tolerating regular diet. She did have elevated blood sugars secondary to her Decadron. Decadron has been discontinued. She reports her pain is controlled. She is feeling better today. Her creatinine is up to 2.08. Nephrology has been consulted. White count 13.3. She is afebrile. Culture is growing E. coli. ID has been consulted PHYSICAL EXAM: VITAL SIGNS: Reviewed GENERAL: Well-developed in no acute distress. HEENT: No sclera icterus. Extraocular movements grossly intact. Moist buccal mucosa. Head is atraumatic, normocephalic. Hears conversational speech. No nasal drainage. NECK: Supple without lymphadenopathy. CHEST: Non-labored respirations and equal bilateral excursions. CARDIOVASCULAR: Palpable 2+ radial pulses. ABDOMEN: Soft. Nondistended. MARIAN drain serous drainage MUSCULOSKELETAL: No clubbing or cyanosis. NEUROLOGIC: No focal or lateralizing signs. Cranial nerves II through XII grossly intact. PSYCH: Appropriate affect. Alert and oriented to person, place and time. SKIN: Well perfused. Good skin turgor. ASSESSMENT: 1. Gangrenous ruptured appendicitis with appendiceal abscess and peritonitis.Status post Robotic-assisted daVinci Xi laparoscopic lysis of adhesions over 1 hr, Robotic-assisted daVinci Xi laparoscopic appendectomy with partial cecotomy with drainage of periappendiceal abscess 2. Diabetes type 2, insulin-dependent 3. Diabetic neuropathy 4. Hypertensive heart disease 5. Morbid obesity due to excess calories, BMI 38.7 6. Hyperlipidemia 7. Iron deficiency anemia 8. Vitamin D deficiency 9. Gout 10. Diabetic nephropathy, stage III 11. Past history of pulmonary embolism PLAN: -Consult nephrology due to worsening kidney function -Consult infectious disease for ruptured appendicitis with peritonitis -Continue Flomax for history of urinary retention -Continue antibiotics -Continue pain medication as needed -Continue IV fluids -Encourage patient to ambulate -Continue GI and DVT prophylaxis -Anticipating possible discharge tomorrow if okay with consulting physicians Physician Traveling Storekeeper note has been reviewed by physician. Signing provider agrees with the documented findings, assessment, and plan of care. Objective - Vital Signs Vital signs: Vital Signs Temp 97.6 F 09/02/20 23:00 Pulse 79 09/02/20 23:00 Resp 18 09/02/20 23:00 BP 109/70 09/02/20 23:00 Pulse Ox 95 09/02/20 23:00 Intake & Output 09/02/20 09/03/20 09/03/20 18:59 06:59 18:59 Intake Total 1100 1900 Output Total 375 415 390 Balance 725 1485 -390 Weight 117.8 kg Intake: Oral 1100 1900 Output: Drainage 125 165 90 Left Lower Abdomen 125 165 90 Urine 250 250 300 Straight 100 Other: Voiding Method Toilet Toilet - Labs CBC & Chem 7: 09/03/20 06:52 09/03/20 06:52 Labs: Abnormal Lab Results - Last 24 Hours (Table) 09/02/20 09/02/20 09/02/20 Range/Units 07:18 07:18 17:06 WBC 15.3 H (3.8-10.6) k/uL MCV 101.1 H (80.0-100.0) fL Neutrophils # 14.3 H (1.3-7.7) k/uL Lymphocytes # 0.7 L (1.0-4.8) k/uL Sodium 135 L (137-145) mmol/L Chloride 110 H (98-107) mmol/L Carbon Dioxide 14 L (22-30) mmol/L BUN 26 H (7-17) mg/dL Creatinine 1.91 H (0.52-1.04) mg/dL Glucose 257 H (74-99) mg/dL POC Glucose (mg/dL) 366 H (75-99) mg/dL Calcium 6.9 L (8.4-10.2) mg/dL 09/02/20 09/02/20 09/03/20 Range/Units 18:27 20:24 06:33 WBC (3.8-10.6) k/uL MCV (80.0-100.0) fL Neutrophils # (1.3-7.7) k/uL Lymphocytes # (1.0-4.8) k/uL Sodium (137-145) mmol/L Chloride (98-107) mmol/L Carbon Dioxide (22-30) mmol/L BUN (7-17) mg/dL Creatinine (0.52-1.04) mg/dL Glucose (74-99) mg/dL POC Glucose (mg/dL) 359 H 377 H 357 H (75-99) mg/dL Calcium (8.4-10.2) mg/dL 09/03/20 09/03/20 Range/Units 06:52 06:52 WBC 13.3 H (3.8-10.6) k/uL MCV 100.7 H (80.0-100.0) fL Neutrophils # 11.9 H (1.3-7.7) k/uL Lymphocytes # 0.9 L (1.0-4.8) k/uL Sodium 135 L (137-145) mmol/L Chloride 112 H (98-107) mmol/L Carbon Dioxide 14 L (22-30) mmol/L BUN 41 H (7-17) mg/dL Creatinine 2.08 H (0.52-1.04) mg/dL Glucose 324 H (74-99) mg/dL POC Glucose (mg/dL) (75-99) mg/dL Calcium 7.0 L (8.4-10.2) mg/dL Microbiology - Last 24 Hours (Table) 08/31/20 15:22 Gram Stain - Final Appendix Wound Culture - Final Escherichia coli <Jeannie Fisher - Last Filed: 09/03/20 22:30> Subjective Patient seen and evaluated with above. Please see additional documentation. Patient reports feeling clinically well. No further reports of nausea. Nausea was treated with Decadron and discontinued due to elevated blood sugars. She is eager to go home. Appropriate elevated MARIAN output secondary to moderate peritoneal washing including ascites from postinflammatory changes from ruptured appendicitis is to be expected. Prior workup included serum and urine creatinine are consistent with no evidence of urine in the peritoneal fluid. Nephrology consultation obtained due to pre-existing stage III kidney disease with worsening renal function again to be expected due to patient presentation of sepsis, ruptured appendicitis, chronic kidney disease. Additionally, pending infectious disease management for antibiotics. Likely be discharge home with antibiotics. Also will continue with MARIAN upon discharge. Objective - Vital Signs Vital signs: Vital Signs Temp 97.3 F L 09/03/20 21:26 Pulse 76 09/03/20 21:26 Resp 18 09/03/20 21:26 BP 124/61 09/03/20 21:26 Pulse Ox 96 09/03/20 21:26 Intake & Output 09/03/20 09/03/20 09/04/20 06:59 18:59 06:59 Intake Total 1900 500 Output Total 415 1215 Balance 1485 -715 Intake: Oral 1900 500 Output: Drainage 165 365 Left Lower Abdomen 165 365 Urine 250 850 Other: Voiding Method Toilet Toilet - Labs CBC & Chem 7: 09/03/20 06:52 09/03/20 15:19 Labs: Abnormal Lab Results - Last 24 Hours (Table) 09/03/20 09/03/20 09/03/20 Range/Units 06:33 06:52 06:52 WBC 13.3 H (3.8-10.6) k/uL MCV 100.7 H (80.0-100.0) fL Neutrophils # 11.9 H (1.3-7.7) k/uL Lymphocytes # 0.9 L (1.0-4.8) k/uL Sodium 135 L (137-145) mmol/L Chloride 112 H (98-107) mmol/L Carbon Dioxide 14 L (22-30) mmol/L BUN 41 H (7-17) mg/dL Creatinine 2.08 H (0.52-1.04) mg/dL Glucose 324 H (74-99) mg/dL POC Glucose (mg/dL) 357 H (75-99) mg/dL Calcium 7.0 L (8.4-10.2) mg/dL 09/03/20 09/03/20 09/03/20 Range/Units 09:22 12:37 15:19 WBC (3.8-10.6) k/uL MCV (80.0-100.0) fL Neutrophils # (1.3-7.7) k/uL Lymphocytes # (1.0-4.8) k/uL Sodium 134 L (137-145) mmol/L Chloride 114 H (98-107) mmol/L Carbon Dioxide 13 L (22-30) mmol/L BUN 43 H (7-17) mg/dL Creatinine 2.13 H (0.52-1.04) mg/dL Glucose 226 H (74-99) mg/dL POC Glucose (mg/dL) 270 H 275 H (75-99) mg/dL Calcium 6.8 L (8.4-10.2) mg/dL 09/03/20 09/03/20 Range/Units 17:23 21:02 WBC (3.8-10.6) k/uL MCV (80.0-100.0) fL Neutrophils # (1.3-7.7) k/uL Lymphocytes # (1.0-4.8) k/uL Sodium (137-145) mmol/L Chloride (98-107) mmol/L Carbon Dioxide (22-30) mmol/L BUN (7-17) mg/dL Creatinine (0.52-1.04) mg/dL Glucose (74-99) mg/dL POC Glucose (mg/dL) 181 H 192 H (75-99) mg/dL Calcium (8.4-10.2) mg/dL Microbiology - Last 24 Hours (Table) 08/31/20 15:22 Gram Stain - Final Appendix Wound Culture - Final Escherichia coli Assessment and Plan (1) Acute appendicitis Current Visit: Yes Status: Acute Code(s): K35.80 - UNSPECIFIED ACUTE APPENDICITIS SNOMED Code(s): 48492346 (2) Insulin dependent diabetes mellitus Current Visit: Yes Status: Chronic Code(s): URV9445 - SNOMED Code(s): 04655645 (3) Stage 3 chronic kidney disease Current Visit: Yes Status: Chronic Code(s): N18.30 - SNOMED Code(s): 407651233 (4) Gout due to renal impairment Current Visit: No Status: Chronic Code(s): M10.30 - GOUT DUE TO RENAL IMPAIRMENT, UNSPECIFIED SITE SNOMED Code(s): 316597228 (5) Vitamin D deficiency Current Visit: No Status: Chronic Code(s): E55.9 - VITAMIN D DEFICIENCY, UNSPECIFIED SNOMED Code(s): 23136735
[2020-09-03] MEDS: allopurinoL 100 MG TAB PO SCH (09:16)
[2020-09-03] MEDS: TAMSULOSIN 0.4 MG CAP.ER.24H PO SCH (09:16)
[2020-09-03] MEDS: BISOPROLOL 5 MG TAB PO SCH (09:16)
[2020-09-03] MEDS: PANTOPRAZOLE 40 MG/10 ML VIAL IV SCH (09:16)
[2020-09-03] MEDS: GABAPENTIN 300 MG CAP PO SCH ×3 (09:16→21:09)
[2020-09-03 09:24] LABS: Glucose,Whole Blood 270 mg/dL (75-99)
[2020-09-03] MEDS ORDERED: INSULIN ASPART (NovoLOG) 100 UNIT/ML VIAL SQ SCH ×2 (12:30→21:00)
[2020-09-03 12:41] LABS: Glucose,Whole Blood 275 mg/dL (75-99)
[2020-09-03] MEDS: LINAGLIPTIN 5 MG TABLET PO SCH (12:51)
[2020-09-03] MEDS: ENOXAPARIN 30 MG/0.3 ML SYRINGE SQ SCH ×2 (12:51→13:01)
--- NOTE | 2020-09-03 13:25 | CDI ---
Documentation Clarification Form Date: 09/03/2020 12:21:00 PM From: Jennifer Snowden RN, CCDS Admit Date: 08/30/2020 06:54:00 AM Patient Name: Genevieve Ramirez Visit Number: [id number] Discharge Date: ATTENTION: The Clinical Documentation Specialists (CDI) and [facility] Coding Staff appreciate your assistance in clarifying documentation. Please respond to the clarification below the line at the bottom and electronically sign. The CDI & [facility] Coding staff will review the response and follow-up if needed. Please note: Queries are made part of the Legal Health Record. If you have any questions, please contact the author of this message via ITS. Dr. Jeannie Fisher 08/31 Operate note: "presents with acute appendicitis including fevers and peritonitis consistent with sepsis." Sepsis is not in the subsequent progress notes. Please render your opinion and clarify is sepsis is ruled in or ruled out. History/Risk Factors: Diabetes Mellitus, Hyperlipidemia, Renal disease, Pulmonary Embolus Clinical Indicators: 65-ricardo-old female who presented to ED on 08/30 with complaints of right lower quadrant abdominal pain. She was running a low-grade fever and couldn't keep her sugars under control. 10// WBC 15.8, Neutrophils 13.2, Sodium 133, BUN 22, Creatinine 1.66, Glucose 265, C-Reactive Protein 69.2 UA: Nitrite Positive, Ur Leukocyte Esterase Large 08/30 Vitals signs on admission: 140/69 88 18 100.8 97 RA 08/31 Appendix Gram Stain: Escherchia Coli Treatment: 08/30 .9NS 1,000 ml bolus x2 then at 125 08/31 and 09/01 .9 NS 1000 ml bolus x2 Zosyn 3375 mg IVPB Q 8 HRS08/30-09/03 Flagyl 500 mg IV q8 hrs Morphine 4 mg IV Q4 hrs/prn In your professional opinion, please clarify if these findings signify one of the following conditions, whether the condition is POA, and cause, if known: Condition Sepsis ruled out Sepsis ruled in due to gangrenous ruptured appendicitis with appendiceal abscess Other, please specify Unable to determine Present on Admission Yes No Identify the (suspected) organism____E.coli Link or clarify if there is associated (due to/with): Organ failure Shock SIRS Criteria (2 or more of the following may indicate SIRS): -Temperature < 96.8F (36C) or > 101.0F (38.3C) -Heart Rate > 90 bpm -Respiratory Rate > 20 breaths/min or PaCO2 < 32 mmHg -White Blood Cell Count > 12,000 or < 4,000 cells/mm3 or > 10% bands -Lactate >2.0 mmol/L (>4.0 is equivalent to septic shock) (Last Revision: February 2018) KM 09/04/20 @1359 MTDD
[2020-09-03] MEDS: SODIUM BICARB IV SCH ×2 (15:04)
[2020-09-03] MEDS: SODIUM CHLORIDE 0.45% IV SCH ×2 (15:04)
--- NOTE | 2020-09-03 15:14 | P.GSCN ---
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 SHe has had alot of vivi drainage and an elevated bun and creatinine[41/2.0]. We were asked to see the patient. SHe is interviewed at the bedside. She is feeling well. SHe has no urinary tract history SHe has had a little difficulty voiding post op. SHe has a drain draining clear yellow fluid. the volumes have been moderate, 180 ml in the last 24 hours. SHe had a renal bladder us that was normal today. Her random urine cr was 92 and the vivi cr was 1.6. Review of Systems All systems: negative - Constitutional Denies fever, Denies weight loss - EENT Eyes: denies blurred vision Ears, nose, mouth and throat: Denies dysphagia - Cardiovascular Denies chest pain, Denies shortness of breath - Respiratory Denies cough, Denies 7 - Gastrointestinal Reports as per HPI - Genitourinary Genitourinary: Denies dysuria, Denies hematuria - Integumentary Denies rash, Denies unusual bruising - Neurological Denies headaches, Denies syncope - Hematologic/Lymphatic Denies easy bleeding, Denies easy bruising Past Medical History Past Medical History: Diabetes Mellitus, Hyperlipidemia, Hypertension, Musculoskeletal Disorder (Chronic low back pain), Osteoarthritis (OA), Pulmonary Embolus (PE) (At 20 years of age), Renal Disease (Diabetic nephropathy, stage III chronic renal failure) Additional Past Medical History / Comment(s): P.E. AT AGE 20, KIDNEY FAILURE - STAGE 3, CHRONIC BACK PAIN History of Any Multi-Drug Resistant Organisms: None Reported Past Surgical History: Section, Cholecystectomy, Orthopedic Surgery Additional Past Surgical History / Comment(s): PAIN CLINIC PROCEDURES, SHAVONNE TRIGGER RELEASE THUMB,RT KNEE SCOPE. BILAT VARICOSE VEIN STRIPPING AGE 29, spinal fusion, Past Anesthesia/Blood Transfusion Reactions: No Reported Reaction Past Psychological History: No Psychological Hx Reported Smoking Status: Never smoker Past Alcohol Use History: None Reported Past Drug Use History: None Reported - Past Family History Sister(s) Family Medical History: Cancer Mother Family Medical History: No Reported History Medications and Allergies Home Medications Medication Instructions Recorded Confirmed Type Insulin Aspart [NovoLOG Flexpen] See Protocol SQ ACHS 12/22/16 08/30/20 History Insulin Glargine [Lantus] 38 units SQ HS 12/22/16 08/30/20 History diazePAM [Valium] 5 mg PO HS PRN 03/05/18 08/30/20 History Acetaminophen-Codeine 300-30mg 1 tab PO DAILY PRN 03/22/18 08/30/20 History [Tylenol w/codeine #3] Insulin Aspart [Novolog Flexpen] 5 unit SQ ACHS 03/23/18 08/30/20 History Bisoprolol [Zebeta] 5 mg PO QAM 08/22/19 08/30/20 History Ergocalciferol [Vitamin D2] 50,000 unit PO AVILA 08/22/19 08/30/20 History Ferrous Sulfate [Feosol] 325 mg PO DAILY 08/22/19 08/30/20 History Gabapentin [Neurontin] 300 mg PO TID 08/22/19 08/30/20 History Melatonin 10 mg PO HS 08/22/19 08/30/20 History allopurinoL [Zyloprim] 100 mg PO DAILY 08/22/19 08/30/20 History sitaGLIPtin PHOS/metFORMIN HCL 1 each PO DAILY 08/22/19 08/30/20 History [Janumet Xr 50-1,000 mg Tablet] Simvastatin [Zocor] 20 mg PO DAILY 08/30/20 08/30/20 History calcitrioL [Calcitriol] 0.5 mcg PO AVILA 08/30/20 08/30/20 History Pantoprazole [Protonix] 40 mg PO DAILY 09/02/20 09/02/20 History Allergies Allergy/AdvReac Type Severity Reaction Status Date / Time metoclopramide HCl Allergy HAD Verified 08/30/20 07:35 [From Reglan] IV-CAUSED TARDIVE DYSKINESIA dulaglutide [From Trulicity] AdvReac severe Verified 08/30/20 07:35 Itching for 10 days sulfamethoxazole AdvReac CANNOT Verified 08/30/20 07:35 [From Bactrim] TAKE WITH METFORMIN PER PT/PER PHARMACIST trimethoprim [From Bactrim] AdvReac CANNOT Verified 08/30/20 07:35 TAKE WITH METFORMIN PER PT/PER PHARMACIST Surgical - Exam Vital Signs Temp Pulse Resp BP Pulse Ox 100.8 F H 88 18 140/69 97 08/30/20 04:02 08/30/20 04:02 08/30/20 04:02 08/30/20 04:02 08/30/20 04:02 - General well developed, well nourished, no distress - Eyes PERRL - ENT no hearing loss - Neck no masses - Respiratory normal expansion, normal respiratory effort - Cardiovascular Rhythm: regular - Abdomen post surgical tenderness - Integumentary no rash - Neurologic normal coordination, normal sensation - Musculoskeletal normal posture - Psychiatric oriented to time, oriented to person, oriented to place, memory intact Results - Labs 09/03/20 06:52 09/03/20 06:52 Abnormal Lab Results - Last 24 Hours (Table) 09/02/20 09/02/20 09/02/20 Range/Units 17:06 18:27 20:24 WBC (3.8-10.6) k/uL MCV (80.0-100.0) fL Neutrophils # (1.3-7.7) k/uL Lymphocytes # (1.0-4.8) k/uL Sodium (137-145) mmol/L Chloride (98-107) mmol/L Carbon Dioxide (22-30) mmol/L BUN (7-17) mg/dL Creatinine (0.52-1.04) mg/dL Glucose (74-99) mg/dL POC Glucose (mg/dL) 366 H 359 H 377 H (75-99) mg/dL Calcium (8.4-10.2) mg/dL 09/03/20 09/03/20 09/03/20 Range/Units 06:33 06:52 06:52 WBC 13.3 H (3.8-10.6) k/uL MCV 100.7 H (80.0-100.0) fL Neutrophils # 11.9 H (1.3-7.7) k/uL Lymphocytes # 0.9 L (1.0-4.8) k/uL Sodium 135 L (137-145) mmol/L Chloride 112 H (98-107) mmol/L Carbon Dioxide 14 L (22-30) mmol/L BUN 41 H (7-17) mg/dL Creatinine 2.08 H (0.52-1.04) mg/dL Glucose 324 H (74-99) mg/dL POC Glucose (mg/dL) 357 H (75-99) mg/dL Calcium 7.0 L (8.4-10.2) mg/dL 09/03/20 09/03/20 Range/Units 09:22 12:37 WBC (3.8-10.6) k/uL MCV (80.0-100.0) fL Neutrophils # (1.3-7.7) k/uL Lymphocytes # (1.0-4.8) k/uL Sodium (137-145) mmol/L Chloride (98-107) mmol/L Carbon Dioxide (22-30) mmol/L BUN (7-17) mg/dL Creatinine (0.52-1.04) mg/dL Glucose (74-99) mg/dL POC Glucose (mg/dL) 270 H 275 H (75-99) mg/dL Calcium (8.4-10.2) mg/dL Microbiology - Last 24 Hours (Table) 08/31/20 15:22 Gram Stain - Final Appendix Wound Culture - Final Escherichia coli Diabetes panel 09/03/20 Range/Units 06:52 Sodium 135 L (137-145) mmol/L Potassium 4.8 (3.5-5.1) mmol/L Chloride 112 H (98-107) mmol/L Carbon Dioxide 14 L (22-30) mmol/L BUN 41 H (7-17) mg/dL Creatinine 2.08 H (0.52-1.04) mg/dL Glucose 324 H (74-99) mg/dL Calcium 7.0 L (8.4-10.2) mg/dL Calcium panel 09/03/20 Range/Units 06:52 Calcium 7.0 L (8.4-10.2) mg/dL Phosphorus 4.3 (2.5-4.5) mg/dL Pituitary panel 09/03/20 Range/Units 06:52 Sodium 135 L (137-145) mmol/L Potassium 4.8 (3.5-5.1) mmol/L Chloride 112 H (98-107) mmol/L Carbon Dioxide 14 L (22-30) mmol/L BUN 41 H (7-17) mg/dL Creatinine 2.08 H (0.52-1.04) mg/dL Glucose 324 H (74-99) mg/dL Calcium 7.0 L (8.4-10.2) mg/dL Adrenal panel 09/03/20 Range/Units 06:52 Sodium 135 L (137-145) mmol/L Potassium 4.8 (3.5-5.1) mmol/L Chloride 112 H (98-107) mmol/L Carbon Dioxide 14 L (22-30) mmol/L BUN 41 H (7-17) mg/dL Creatinine 2.08 H (0.52-1.04) mg/dL Glucose 324 H (74-99) mg/dL Calcium 7.0 L (8.4-10.2) mg/dL - Imaging CT scan - abdomen: report reviewed, image reviewed CT scan - pelvis: report reviewed, image reviewed US - kidney/bladder: report reviewed, image reviewed Assessment and Plan Assessment: Impression: increased fluid in drain due to peritoneal irritation[expected post ruptured appendectomy] This fluid is peritoneal and not urine based on fluid and urine cr numbers. [id number] bun and creatinine secondary to third space loss post appendectomy, not renal.. The patient does have some crf due to DM[baseline cr 1.6] but the worsening is expected post op. No further urologic intervention necessary. Agree with Dr Fisher management
[2020-09-03 16:06] LABS: Calcium 6.8 mg/dL (8.4-10.2); Potassium 4.7 mmol/L (3.5-5.1)
--- NOTE | 2020-09-03 16:11 | US ---
EXAMINATION TYPE: US kidneys/renal and bladder DATE OF EXAM: 09/03/2020 COMPARISON: CT abdomen pelvis 10/09. CLINICAL HISTORY: Renal failure, retention. Patient is recent post appendectomy via [employer] robot[employer] surgery; diabetic EXAM MEASUREMENTS: Right Kidney: 8.5 x 5.0 x 4.7 cm Left Kidney: 8.1 x 5.4 x 4.2 cm Post Void Residual Volume: 8.7 ml as patient just voided at 12:30. Right Kidney: No hydronephrosis. Left Kidney: No hydronephrosis. Bladder: Nondistended due to recent void just prior to US. Normal Post Void Residual: yes. IMPRESSION: 1. No hydronephrosis bilaterally. 2. Nondistended urinary bladder with normal postvoid residual.
--- NOTE | 2020-09-03 16:26 | P.PN ---
Subjective Progress Note Date: 09/03/20 This is a 65-year-old insulin-dependent diabetic woman the practice. 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 She reports her sugars have been elevated since yesterday morning. She has not been able to eat or drink much. She denies any chest pains, pressures or shortness of breath. She's been having some fever, anorexia and minimal nausea. 11 consult for management of her diabetes. She has received or feet emergency room to help control her pain symptoms. She is currently on Zosyn and has received a dose of Flagyl as well. IV fluids at 130 mL an hour. 08/31/2020:patient is NPO after midnbioght for robot assisted appy today at noon. She tolerated clears overnight. She is on IV 0.9NS@100cc/hr. Anitbiotic coverage with Zosyn & FLagyl. Her cierra nis tolerable at thsi time. No chest pain of SOB. some nausea but no emesis. sugars per her CGM are 200's/ Her lantus is being held and she remains on scale, 09/01/2020 postop day 1 for laparoscopic appendectomy with lysis of adhesions,partial cecotomy with drainage of abscess,secondary to gangrenous ruptured appendicitis with appendiceal abscess.tolerated procedure well. cultures pending. Maintained on, zosyn, flagyl. t-max 99 with normal wbc. creatinine nearing baseline at 1.6. Tolerating clear liquid consistent carb diet with no nausea vomiting or diarrhea.pain controlled, currently rated at "3". patient has history of postoperative urinary retention. Has required straight cath 2 in addition to being on Flomax. Ambulating in hallway, tolerating exertion well. Denies chest pain, palpitations or shortness of breath. 09/02/2020 patient reported significant pain with nausea last night and through the junior oracle dba hours, significantly improved with Dilaudid and Decadron. Di et advanced yesterday, tolerating well with no nausea or vomiting today. Blood sugars in the 200s. Worsening renal function, BUN 26, creatinine 1.91 potassium 5, magnesium, phosphorus within normal limits. Lazo catheter to be discontinued this morning, pending. Afebrile, WBC increased to 15.3. 09/03/2020 Feels better,consuming 75%, denies nausea vomiting.Pain controlled. Afebrile, yesterday WBC increased to 15.3, today trending down to 13.3. Wound cultures reporting E. coli .Blood sugars uncontrolled, hyperglycemic. Decadron discontinued. Continues on IV fluid hydration, Creatinine continues to worsen, up to 2.08. Objective - Vital Signs Vital signs: Vital Signs Temp 97 F L 09/03/20 12:33 Pulse 90 09/03/20 12:33 Resp 20 09/03/20 08:00 BP 129/74 09/03/20 12:33 Pulse Ox 97 09/03/20 12:33 Intake & Output 09/02/20 09/03/20 09/03/20 18:59 06:59 18:59 Intake Total 1100 1900 Output Total 375 415 480 Balance 725 1485 -480 Weight 117.8 kg Intake: Oral 1100 1900 Output: Drainage 125 165 180 Left Lower Abdomen 125 165 180 Urine 250 250 300 Straight 100 Other: Voiding Method Toilet Toilet Toilet - Exam PHYSICAL EXAM: VITAL SIGNS: [as above] GENERAL: alert and oriented 3, lying in bed, no acute distress HEENT: Conjunctivae normal. eyes normal. oral mucosa moist NECK: No JVD. No thyroid enlargement. CARDIOVASCULAR: S1, S2 regular. No murmur RESPIRATION: Breath sounds diminished in the bases. ABDOMEN: Soft, status post surgery,No guarding.MARIAN with serous drainage, positive bowel sounds. LEGS: No edema. no swelling.no clubbing or cyanosis, no calf tenderness. NERVOUS SYSTEM: Cranial N 2-12 grossly normal. No focal deficits. STERN. Strength and sensation grossly intact. Skin: warm and dry,no rash - Labs CBC & Chem 7: 09/03/20 06:52 09/03/20 15:19 Labs: Abnormal Lab Results - Last 24 Hours (Table) 09/02/20 09/02/20 09/02/20 Range/Units 17:06 18:27 20:24 WBC (3.8-10.6) k/uL MCV (80.0-100.0) fL Neutrophils # (1.3-7.7) k/uL Lymphocytes # (1.0-4.8) k/uL Sodium (137-145) mmol/L Chloride (98-107) mmol/L Carbon Dioxide (22-30) mmol/L BUN (7-17) mg/dL Creatinine (0.52-1.04) mg/dL Glucose (74-99) mg/dL POC Glucose (mg/dL) 366 H 359 H 377 H (75-99) mg/dL Calcium (8.4-10.2) mg/dL 09/03/20 09/03/20 09/03/20 Range/Units 06:33 06:52 06:52 WBC 13.3 H (3.8-10.6) k/uL MCV 100.7 H (80.0-100.0) fL Neutrophils # 11.9 H (1.3-7.7) k/uL Lymphocytes # 0.9 L (1.0-4.8) k/uL Sodium 135 L (137-145) mmol/L Chloride 112 H (98-107) mmol/L Carbon Dioxide 14 L (22-30) mmol/L BUN 41 H (7-17) mg/dL Creatinine 2.08 H (0.52-1.04) mg/dL Glucose 324 H (74-99) mg/dL POC Glucose (mg/dL) 357 H (75-99) mg/dL Calcium 7.0 L (8.4-10.2) mg/dL 09/03/20 09/03/20 Range/Units 09:22 12:37 WBC (3.8-10.6) k/uL MCV (80.0-100.0) fL Neutrophils # (1.3-7.7) k/uL Lymphocytes # (1.0-4.8) k/uL Sodium (137-145) mmol/L Chloride (98-107) mmol/L Carbon Dioxide (22-30) mmol/L BUN (7-17) mg/dL Creatinine (0.52-1.04) mg/dL Glucose (74-99) mg/dL POC Glucose (mg/dL) 270 H 275 H (75-99) mg/dL Calcium (8.4-10.2) mg/dL Microbiology - Last 24 Hours (Table) 08/31/20 15:22 Gram Stain - Final Appendix Wound Culture - Final Escherichia coli Assessment and Plan Assessment: (1) Acute appendicitis with lysis of adhesions, partial cecotomy and drainage of appendiceal abscess secondary to ruptured gangrenous appendicitis ,cultures reporting E. coli Current Visit: Yes Status: Acute Code(s): K35.80 - UNSPECIFIED ACUTE APPENDICITIS SNOMED Code(s): 75821421 (2) Stage 3 chronic kidney disease Current Visit: Yes Status: Chronic Code(s): N18.30 - SNOMED Code(s): 4 64487082 (3) Insulin dependent diabetes mellitus,hemoglobin A1c 7.4, hyperglycemic Current Visit: Yes Status: Chronic Code(s): MLR8357 - SNOMED Code(s): 22223957 (4) Essential (primary) hypertension Current Visit: No Status: Chronic Code(s): I10 - ESSENTIAL (PRIMARY) HYPERTENSION SNOMED Code(s): 87302248 (5) Mixed hyperlipidemia Current Visit: No Status: Chronic Code(s): E78.2 - MIXED HYPERLIPIDEMIA SNOMED Code(s): 606035545 (6) Gout due to renal impairment Current Visit: No Status: Chronic Code(s): M10.30 - GOUT DUE TO RENAL IMPAIRMENT, UNSPECIFIED SITE SNOMED Code(s): 445917975 (7) Vitamin D deficiency Current Visit: No Status: Chronic Code(s): E55.9 - VITAMIN D DEFICIENCY, UNSPECIFIED SNOMED Code(s): 64494736 (8) Chronic lower back pain Current Visit: Yes Status: Chronic Code(s): M54.5 - LOW BACK PAIN; G89.29 - OTHER CHRONIC PAIN SNOMED Code(s): 387377472 (9)History of pulmonary embolism Current Visit: Yes Status: Chronic Code(s): Z86.711 - PERSONAL HISTORY OF PULMONARY EMBOLISM SNOMED Code(s): 551300493 (10) postoperative urinary retention in a patient with history of. (11) morbid obesity, BMI 38.7 plan: Continue on current medication regimen, monitoring and symptomatic treatment. Continue on Zosyn, Flagyl .infectious disease,nephrology and urology consulted.IV fluid hydration . Renal ultrasound completed, results pending. Increase ambulation as tolerated. Aggressive pulmonary toileting with incentive spirometer, reinforced. Pre-meal insulin with parameters added to diabetic med regime as well as increased Levemir dose .close monitoring of Accu-Cheks. Close monitoring of renal function, electrolytes with repeat labs ordered for a.m. The impression and plan of care has been dictated as directed. : I performed a history and examination of this patient, discussed the same with the dictator. I agree with the dictator's note ,documented as a scribe. Any additional findings or plans will be noted.
[2020-09-03 17:25] LABS: Glucose,Whole Blood 181 mg/dL (75-99)
--- NOTE | 2020-09-03 18:28 | CONS ---
CONSULTATION REASON FOR CONSULT: Renal failure. HISTORY OF PRESENT ILLNESS: The patient is a 65-year-old female with history of hypertension, chronic kidney disease, NKF stage III, with baseline creatinine about 1.5 to 1.6 mg/dL. The patient follows as outpatient. She was last seen about a month ago and her renal function had been stable. She was admitted to the hospital with complaints of abdominal pain. CT scan was done which showed evidence of acute appendicitis and patient was taken to OR on 08/31/2020, where she was found to have ruptured appendicitis and had laparoscopic appendectomy with drainage of a periappendiceal abscess. She had a MARIAN drain placed and peritoneal lavage done at that time. There was concern for possible bladder laceration. Blood pressure has been slightly on the lower side, with systolic around 109 with occasional systolic around 90 mmHg on 09/01/2020. Serum creatinine this admission is staying at about 1.9 to 2 mg per dL for the last couple of days. Initial creatinine was 1.6 on admission. Patient has been voiding. She is quite acidotic with CO2 of 14 today. MARIAN drain is noted to have clear fluid which looks like urine. Patient denies any significant pain. PAST MEDICAL HISTORY: CKD, hypertension, hyperlipidemia, type 2 diabetes, osteoarthritis, history of PE, diabetic nephropathy, stage III. PAST SURGICAL HISTORY: , cholecystectomy, surgery for trigger thumb, right knee arthroscopy, varicose vein stripping, spinal fusion. SOCIAL HISTORY: Negative for smoking, drug abuse or alcohol abuse. MEDICATIONS: Medications at home prior to admission included insulin, Valium, bisoprolol, vitamin D2, iron, Neurontin, melatonin, Zyloprim, metformin, Janumet, Zocor, Calcitriol. ALLERGIES: ALLERGIES include TRULICITY, REGLAN, BACTRIM. REVIEW OF SYSTEMS: As per HPI. Other systems negative. PHYSICAL EXAMINATION: Patient is comfortable, awake, not in any acute distress. Alert, oriented x3. Blood pressure was 129/74, heart rate 90 per minute. She is afebrile. EXAMINATION OF THE HEART: S1 and S2. EXAMINATION OF LUNGS: Bilateral breath sounds are heard. ABDOMEN: Soft, non-tender. Examination of lower extremities shows no significant edema. FISHER PURSE SEINE exam is grossly intact. LABS: Labs reveal sodium 135, potassium 4.8, chloride 112. CO2 is 14, BUN 41, creatinine 2.08, hemoglobin 12.7 g/dL. ASSESSMENT: 1. Acute kidney injury, mostly associated with hypoperfusion. I will decrease the dose of bisoprolol and hold for systolic blood pressure less than 120. 2. Bladder laceration during surgery. Consult Urology, as the MARIAN drain fluid looks like urine. 3. Metabolic acidosis, non gap, associated with renal failure, possibly associated with gastrointestinal fluid loss as well. No diarrhea noted from patient. I will add IV bicarb. 4. Hypertension. Blood pressure currently on the lower side. 5. Appendicitis, status post laparoscopic appendectomy for ruptured appendicitis. 6. Chronic kidney disease, stage 3, secondary to nephrosclerosis and diabetic nephropathy. PLAN: Start IV bicarb. Consult Vascular Surgery. Decrease dose of bisoprolol. Hold for systolic blood pressure less than 120. Repeat labs in a.m. Avoid any nephrotoxic agents. Thank you for this consultation. Will continue to follow the patient with you during her hospitalization. MMODL / IJN: [id number] /
[2020-09-03] MEDS ORDERED: INSULIN DETEMIR (LEVEMIR) 100 UNIT/ML SYR SQ SCH (21:00)
[2020-09-03 21:03] LABS: Glucose,Whole Blood 192 mg/dL (75-99)
[2020-09-03] MEDS: MELATONIN 5 MG TABLET PO SCH (21:09)
--- NOTE | 2020-09-04 00:10 | P.CONS ---
History of Present Illness - Reason for Consult Consult date: 09/03/20 Perforated appendicitis Requesting physician: Jeannie Fisher - Chief Complaint Abdominal pain 2 days - History of Present Illness Patient is a 65-year-old female presenting to the ER at [facility] about 5 days ago on 08/30/2020 for evaluation of right lower quadrant abdominal pain. The patient woke up Monday morning with pain and right lower quadrant area pain persisted throughout the day and also was having her low-grade fever and her blood sugars were running high with the symptoms the patient presented to the hospital, on arrival to the patient did have a fever of 1.84 right patient did have elevated white count of 15.8, the patient did have positive UA patient did have CT of abdominal pelvis with evidence of marked thickened appendix with fluid and appendicolith patient subsequently was taken to the OR the next day the patient is status post appendectomy she was noticed to have ruptured appendicitis, patient did have abdominal cultures obtained which are currently growing E. coli patient has been treated with Zosyn and infectious disease was consulted for further management of antibiotic therapy Review of Systems Positive point has been mentioned in the HPI rest of the systems are negative Past Medical History Past Medical History: Diabetes Mellitus, Hyperlipidemia, Hypertension, Musculoskeletal Disorder (Chronic low back pain), Osteoarthritis (OA), Pulmonary Embolus (PE) (At 20 years of age), Renal Disease (Diabetic nephropathy, stage III chronic renal failure) Additional Past Medical History / Comment(s): P.E. AT AGE 20, KIDNEY FAILURE - STAGE 3, CHRONIC BACK PAIN History of Any Multi-Drug Resistant Organisms: None Reported Past Surgical History: Section, Cholecystectomy, Orthopedic Surgery Additional Past Surgical History / Comment(s): PAIN CLINIC PROCEDURES, SHAVONNE TRIGGER RELEASE THUMB,RT KNEE SCOPE. BILAT VARICOSE VEIN STRIPPING AGE 29, spinal fusion, Past Anesthesia/Blood Transfusion Reactions: No Reported Reaction Past Psychological History: No Psychological Hx Reported Smoking Status: Never smoker Past Alcohol Use History: None Reported Past Drug Use History: None Reported - Past Family History Sister(s) Family Medical History: Cancer Mother Family Medical History: No Reported History Medications and Allergies Home Medications Medication Instructions Recorded Confirmed Type Insulin Aspart [NovoLOG Flexpen] See Protocol SQ ACHS 12/22/16 08/30/20 History Insulin Glargine [Lantus] 38 units SQ HS 12/22/16 08/30/20 History diazePAM [Valium] 5 mg PO HS PRN 03/05/18 08/30/20 History Acetaminophen-Codeine 300-30mg 1 tab PO DAILY PRN 03/22/18 08/30/20 History [Tylenol w/codeine #3] Insulin Aspart [Novolog Flexpen] 5 unit SQ ACHS 03/23/18 08/30/20 History Bisoprolol [Zebeta] 5 mg PO QAM 08/22/19 08/30/20 History Ergocalciferol [Vitamin D2] 50,000 unit PO AVILA 08/22/19 08/30/20 History Ferrous Sulfate [Feosol] 325 mg PO DAILY 08/22/19 08/30/20 History Gabapentin [Neurontin] 300 mg PO TID 08/22/19 08/30/20 History Melatonin 10 mg PO HS 08/22/19 08/30/20 History allopurinoL [Zyloprim] 100 mg PO DAILY 08/22/19 08/30/20 History sitaGLIPtin PHOS/metFORMIN HCL 1 each PO DAILY 08/22/19 08/30/20 History [Janumet Xr 50-1,000 mg Tablet] Simvastatin [Zocor] 20 mg PO DAILY 08/30/20 08/30/20 History calcitrioL [Calcitriol] 0.5 mcg PO AVILA 08/30/20 08/30/20 History Pantoprazole [Protonix] 40 mg PO DAILY 09/02/20 09/02/20 History Allergies Allergy/AdvReac Type Severity Reaction Status Date / Time metoclopramide HCl Allergy HAD Verified 08/30/20 07:35 [From Reglan] IV-CAUSED TARDIVE DYSKINESIA dulaglutide [From Trulicity] AdvReac severe Verified 08/30/20 07:35 Itching for 10 days sulfamethoxazole AdvReac CANNOT Verified 08/30/20 07:35 [From Bactrim] TAKE WITH METFORMIN PER PT/PER PHARMACIST trimethoprim [From Bactrim] AdvReac CANNOT Verified 08/30/20 07:35 TAKE WITH METFORMIN PER PT/PER PHARMACIST Physical Exam Vitals: Vital Signs Temp Pulse Resp BP Pulse Ox 09/03/20 08:00 97 F L 75 20 118/68 96 09/02/20 23:00 97.6 F 79 18 109/70 95 09/02/20 20:00 97.3 F L 79 18 121/71 95 09/02/20 16:08 94 20 114/68 95 09/02/20 12:24 96.8 F L 80 18 126/68 94 L Intake and Output 09/02/20 09/03/20 09/03/20 22:59 06:59 14:59 Intake Total 1820 580 Output Total 525 90 390 Balance 1295 490 -390 Intake: Oral 1820 580 Output: Drainage 125 90 90 Left Lower Abdomen 125 90 90 Urine 400 300 Other: Voiding Method Toilet Toilet GENERAL DESCRIPTION: An elderly female lying in bed, no distress. No tachypnea or accessory muscle of respiration use. HEENT: Shows Pallor , no scleral icterus. Oral mucous membrane is dry. No pharyngeal erythema or thrush NECK: Trachea central, no thyromegaly. LUNGS: Unlabored breathing. Clear to auscultation anteriorly. No wheeze or crackle. HEART: S1, S2, regular rate and rhythm. No loud murmur ABDOMEN: Soft, mildly abdominal tenderness , guarding or rigidity, no organomegaly EXTREMITIES: No edema of feet. SKIN: No rash, no masses palpable. NEUROLOGICAL: The patient is awake, alert, oriented x3, mood and affect normal. Results CBC & Chem 7: 09/03/20 06:52 09/03/20 15:19 Labs: Abnormal Lab Results - Last 24 Hours (Table) 09/02/20 09/02/20 09/02/20 Range/Units 17:06 18:27 20:24 WBC (3.8-10.6) k/uL MCV (80.0-100.0) fL Neutrophils # (1.3-7.7) k/uL Lymphocytes # (1.0-4.8) k/uL Sodium (137-145) mmol/L Chloride (98-107) mmol/L Carbon Dioxide (22-30) mmol/L BUN (7-17) mg/dL Creatinine (0.52-1.04) mg/dL Glucose (74-99) mg/dL POC Glucose (mg/dL) 366 H 359 H 377 H (75-99) mg/dL Calcium (8.4-10.2) mg/dL 09/03/20 09/03/20 09/03/20 Range/Units 06:33 06:52 06:52 WBC 13.3 H (3.8-10.6) k/uL MCV 100.7 H (80.0-100.0) fL Neutrophils # 11.9 H (1.3-7.7) k/uL Lymphocytes # 0.9 L (1.0-4.8) k/uL Sodium 135 L (137-145) mmol/L Chloride 112 H (98-107) mmol/L Carbon Dioxide 14 L (22-30) mmol/L BUN 41 H (7-17) mg/dL Creatinine 2.08 H (0.52-1.04) mg/dL Glucose 324 H (74-99) mg/dL POC Glucose (mg/dL) 357 H (75-99) mg/dL Calcium 7.0 L (8.4-10.2) mg/dL 09/03/20 Range/Units 09:22 WBC (3.8-10.6) k/uL MCV (80.0-100.0) fL Neutrophils # (1.3-7.7) k/uL Lymphocytes # (1.0-4.8) k/uL Sodium (137-145) mmol/L Chloride (98-107) mmol/L Carbon Dioxide (22-30) mmol/L BUN (7-17) mg/dL Creatinine (0.52-1.04) mg/dL Glucose (74-99) mg/dL POC Glucose (mg/dL) 270 H (75-99) mg/dL Calcium (8.4-10.2) mg/dL Microbiology - Last 24 Hours (Table) 08/31/20 15:22 Gram Stain - Final Appendix Wound Culture - Final Escherichia coli Assessment and Plan Assessment: 1- patient presented to hospital with abdominal pain in this patient did have low-grade fever and elevated white count noticed to have a perforated appendi citis and abdominal abscesses status post appendectomy drainage of the abscess which is currently growing E. coli which is a sensitive pathogen (1) Abdominal abscess Current Visit: Yes Status: Acute Code(s): ZMS7695 - SNOMED Code(s): 64133294 Plan: 1-patient to continue with Zosyn 3.375 g every 8 hours while inpatient 2-plan is to switch over to oral Cipro and Flagyl 10 days on discharge We will follow on clinical condition and cultures to further adjust medication if needed Thank you for this consultation will follow this patient with you Time with Patient: Greater than 30
[2020-09-04] MEDS: ACETAMINOPHEN TAB 500 MG TAB PO SCH ×2 (00:22→04:28)
[2020-09-04] MEDS: SODIUM BICARB IV SCH ×6 (02:43→16:43)
[2020-09-04] MEDS: PIPERACILLIN-TAZOBACTAM 3.375 GM in SODIUM CHLORIDE 0.9% 100 ML IVPB SCH ×3 (02:43→16:43)
[2020-09-04] MEDS: metroNIDAZOLE-NS PMX 500 MG in SALINE 1 100ML.BAG IVPB SCH ×3 (02:43→16:43)
[2020-09-04] MEDS: SODIUM CHLORIDE 0.45% IV SCH ×6 (02:43→16:43)
[2020-09-04] MEDS: HYDROmorphone 1 MG/ML 1 ML SYRINGE IVP PRN (04:13)
[2020-09-04 06:16] LABS: Basophils % (A) 0 %; Eosinophils # (A) 0.1 k/uL (0-0.7); Eosinophils % (A) 1 %; HCT 37.2 % (34.0-46.0); HGB 11.1 gm/dL (11.4-16.0); Hypochromasia Marked; Lymphocytes # (A) 1.4 k/uL (1.0-4.8); Lymphocytes % (A) 16 %; MCH 29.8 pg (25.0-35.0); MCHC 29.8 g/dL (31.0-37.0); Macrocytosis Slight; Monocytes # (A) 0.5 k/uL (0-1.0); Monocytes % (A) 6 %; Neutrophils # (A) 6.4 k/uL (1.3-7.7); Neutrophils % (A) 76 %; Platelet Count 273 k/uL (150-450); RBC 3.72 m/uL (3.80-5.40); RDW 14.3 % (11.5-15.5); WBC 8.4 k/uL (3.8-10.6)
[2020-09-04 06:29] LABS: Calcium 6.7 mg/dL (8.4-10.2); Potassium 4.5 mmol/L (3.5-5.1)
[2020-09-04 06:40] LABS: Glucose,Whole Blood 130 mg/dL (75-99)
[2020-09-04] MEDS: INSULIN ASPART (NovoLOG) 100 UNIT/ML VIAL SQ SCH ×3 (07:00→18:01)
[2020-09-04] MEDS: LINAGLIPTIN 5 MG TABLET PO SCH (08:24)
[2020-09-04] MEDS: GABAPENTIN 300 MG CAP PO SCH ×2 (08:24→16:14)
[2020-09-04] MEDS: allopurinoL 100 MG TAB PO SCH (08:25)
[2020-09-04] MEDS: TAMSULOSIN 0.4 MG CAP.ER.24H PO SCH (08:25)
[2020-09-04] MEDS ORDERED: PANTOPRAZOLE 40 MG TABLET PO SCH (09:00)
[2020-09-04] MEDS ORDERED: BISOPROLOL 5 MG TAB PO SCH (09:00)
[2020-09-04] MEDS ORDERED: Acetaminophen-Codeine 300-30mg TAB PO PRN (10:43)
[2020-09-04] MEDS ORDERED: FUROSEMIDE 10 MG/ML 4 ML VIAL IV STA (11:49)
[2020-09-04 12:26] VITALS: BP 128/69; PULSE 75; RESP 18; TEMP 98.2
--- NOTE | 2020-09-04 12:32 | P.PN ---
<Tati Benitez - Last Filed: 09/04/20 12:22> Subjective Progress Note Date: 09/04/20 CHIEF COMPLAINT: Gangrenous ruptured appendicitis with appendiceal abscess HISTORY OF PRESENT ILLNESS: Patient is postop day #4. Patient does report abdominal pain requiring IV Dilaudid about twice a day. She was nauseated when she tried the [place]. And Tylenol does not controlling the pain. We will resume her Tylenol 3 that she takes at home. Patient also reports needing assistance with getting out of bed and getting out of the chair. She is worried about going home and safety. Physical therapy will be working with her and social work will be evaluating patient for possible ECF placement. Patient has been evaluated by infectious disease, nephrology, urology and medicine. Patient is urinating without difficulty and no evidence of retention. Workup included serum and urine creatinine are consistent with no evidence of urine in the peritoneal fluid. Patient denies any nausea or vomiting and is tolerating diet. She is afebrile. Creatinine 2.09 CO2 19 WBC 8.4 hemoglobin 11.1 Anaerobic culture Growing gram-negative bacilli and Culture growing E. coli. Nephrology has given 1 dose of IV Lasix for fluid overload. PHYSICAL EXAM: VITAL SIGNS: Reviewed GENERAL: Well-developed in no acute distress. HEENT: No sclera icterus. Extraocular movements grossly intact. Moist buccal mucosa. Head is atraumatic, normocephalic. Hears conversational speech. No nasal drainage. NECK: Supple without lymphadenopathy. CHEST: Non-labored respirations and equal bilateral excursions. CARDIOVASCULAR: Palpable 2+ radial pulses. ABDOMEN: Soft. Nondistended. Incision sites clean dry and intactJP drain serous Cloudy drainage MUSCULOSKELETAL: No clubbing or cyanosis. NEUROLOGIC: No focal or lateralizing signs. Cranial nerves II through XII grossly intact. PSYCH: Appropriate affect. Alert and oriented to person, place and time. SKIN: Well perfused. Good skin turgor. ASSESSMENT: 1. Gangrenous ruptured appendicitis with appendiceal abscess and peritonitis with sepsis.Status post Robotic-assisted daVinci Xi laparoscopic lysis of adhesions over 1 hr, Robotic-assisted daVinci Xi laparoscopic appendectomy with partial cecotomy with drainage of periappendiceal abscess 2. Diabetes type 2, insulin-dependent 3. Diabetic neuropathy 4. Hypertensive heart disease 5. Morbid obesity due to excess calories, BMI 38.7 6. Hyperlipidemia 7. Iron deficiency anemia 8. Vitamin D deficiency 9. Gout 10. Diabetic nephropathy, stage III 11. Past history of pulmonary embolism 12. Acute kidney injury likely due to hypoperfusion. Followed by nephrology who was adjusted the pressure medication PLAN: -Continue Flomax for history of urinary retention -Continue antibiotics Per ID. ID recommending Cipro and Flagyl for 10 days at discharge -Dilaudid discontinued. Add Tylenol 3 for pain control -Encourage patient to ambulate -Consult physical therapy and social work patient may require ECF placement -Continue GI and DVT prophylaxis Physician Boring Machine Set Up Operator note has been reviewed by physician. Signing provider agrees with the documented findings, assessment, and plan of care. Objective - Vital Signs Vital signs: Vital Signs Temp 97.1 F L 09/04/20 08:05 Pulse 67 09/04/20 08:05 Resp 14 09/04/20 08:05 BP 108/66 09/04/20 08:05 Pulse Ox 96 09/04/20 08:05 Intake & Output 09/03/20 09/04/20 09/04/20 18:59 06:59 18:59 Intake Total 500 1160 Output Total 1215 371 720 Balance -715 789 -720 Intake: Oral 500 1160 Output: Drainage 365 325 120 Left Lower Abdomen 365 325 120 Urine 850 600 Post Void Residual 46 Other: Voiding Method Toilet Toilet Toilet # Voids 2 1 # Bowel Movements 1 1 - Labs CBC & Chem 7: 09/04/20 05:58 09/04/20 05:58 Labs: Abnormal Lab Results - Last 24 Hours (Table) 09/03/20 09/03/20 09/03/20 Range/Units 12:37 15:19 17:23 RBC (3.80-5.40) m/uL Hgb (11.4-16.0) gm/dL MCHC (31.0-37.0) g/dL Sodium 134 L (137-145) mmol/L Chloride 114 H (98-107) mmol/L Carbon Dioxide 13 L (22-30) mmol/L BUN 43 H (7-17) mg/dL Creatinine 2.13 H (0.52-1.04) mg/dL Glucose 226 H (74-99) mg/dL POC Glucose (mg/dL) 275 H 181 H (75-99) mg/dL Calcium 6.8 L (8.4-10.2) mg/dL 09/03/20 09/04/20 09/04/20 Range/Units 21:02 05:58 05:58 RBC 3.72 L (3.80-5.40) m/uL Hgb 11.1 L (11.4-16.0) gm/dL MCHC 29.8 L (31.0-37.0) g/dL Sodium (137-145) mmol/L Chloride 114 H (98-107) mmol/L Carbon Dioxide 19 L (22-30) mmol/L BUN 48 H (7-17) mg/dL Creatinine 2.09 H (0.52-1.04) mg/dL Glucose 138 H (74-99) mg/dL POC Glucose (mg/dL) 192 H (75-99) mg/dL Calcium 6.7 L (8.4-10.2) mg/dL 09/04/20 Range/Units 06:38 RBC (3.80-5.40) m/uL Hgb (11.4-16.0) gm/dL MCHC (31.0-37.0) g/dL Sodium (137-145) mmol/L Chloride (98-107) mmol/L Carbon Dioxide (22-30) mmol/L BUN (7-17) mg/dL Creatinine (0.52-1.04) mg/dL Glucose (74-99) mg/dL POC Glucose (mg/dL) 130 H (75-99) mg/dL Calcium (8.4-10.2) mg/dL Microbiology - Last 24 Hours (Table) 08/31/20 15:22 Anaerobic Culture - Final Appendix Anaerobic Gm Negative Bacilli Anaerobic Gm Negative Bacilli#2 <Jeannie Fisher N - Last Filed: 09/04/20 19:23> Subjective As above. Patient presented with sepsis from gangrenous ruptured appendicitis. Abdominal ascites was secondary to peritonitis from appendicitis. Clinically, patient was stable however had moderate to severe generalized weakness requiring rehab transfer. Multiple consultants including infectious disease, medicine, nephrology were obtained to optimize her care. Prior to discharge, she was deemed stable for discharge. Patient discharged MARIAN drain will follow-up in the office within 1-2 weeks Objective - Vital Signs Vital signs: Vital Signs Temp 98.2 F 09/04/20 12:25 Pulse 75 09/04/20 12:25 Resp 18 09/04/20 12:25 BP 128/69 09/04/20 12:25 Pulse Ox 96 09/04/20 08:05 Intake & Output 09/04/20 09/04/20 09/05/20 06:59 18:59 06:59 Intake Total 1160 Output Total 371 1440 Balance 789 -1440 Weight 117.8 kg Intake: Oral 1160 Output: Drainage 325 240 Left Lower Abdomen 325 240 Urine 1200 Post Void Residual 46 Other: Voiding Method Toilet Toilet # Voids 2 1 # Bowel Movements 1 1 - Labs CBC & Chem 7: 09/04/20 05:58 09/04/20 05:58 Labs: Abnormal Lab Results - Last 24 Hours (Table) 09/03/20 09/04/20 09/04/20 Range/Units 21:02 05:58 05:58 RBC 3.72 L (3.80-5.40) m/uL Hgb 11.1 L (11.4-16.0) gm/dL MCHC 29.8 L (31.0-37.0) g/dL Chloride 114 H (98-107) mmol/L Carbon Dioxide 19 L (22-30) mmol/L BUN 48 H (7-17) mg/dL Creatinine 2.09 H (0.52-1.04) mg/dL Glucose 138 H (74-99) mg/dL POC Glucose (mg/dL) 192 H (75-99) mg/dL Calcium 6.7 L (8.4-10.2) mg/dL 09/04/20 09/04/20 09/04/20 Range/Units 06:38 12:36 17:56 RBC (3.80-5.40) m/uL Hgb (11.4-16.0) gm/dL MCHC (31.0-37.0) g/dL Chloride (98-107) mmol/L Carbon Dioxide (22-30) mmol/L BUN (7-17) mg/dL Creatinine (0.52-1.04) mg/dL Glucose (74-99) mg/dL POC Glucose (mg/dL) 130 H 204 H 147 H (75-99) mg/dL Calcium (8.4-10.2) mg/dL Microbiology - Last 24 Hours (Table) 08/31/20 15:22 Anaerobic Culture - Final Appendix Anaerobic Gm Negative Bacilli Anaerobic Gm Negative Bacilli#2 Assessment and Plan (1) Acute appendicitis Status: Acute Code(s): K35.80 - UNSPECIFIED ACUTE APPENDICITIS SNOMED Code(s): 81157427 (2) Insulin dependent diabetes mellitus Status: Chronic Code(s): VUK1034 - SNOMED Code(s): 45841296 (3) Stage 3 chronic kidney disease Status: Chronic Code(s): N18.30 - SNOMED Code(s): 417103747 (4) Gout due to renal impairment Status: Chronic Code(s): M10.30 - GOUT DUE TO RENAL IMPAIRMENT, UNSPECIFIED SITE SNOMED Code(s): 074337203 (5) Vitamin D deficiency Status: Chronic Code(s): E55.9 - VITAMIN D DEFICIENCY, UNSPECIFIED SNOMED Code(s): 05553144
[2020-09-04 12:38] LABS: Glucose,Whole Blood 204 mg/dL (75-99)
[2020-09-04] MEDS ORDERED: INSULIN ASPART (NovoLOG) 100 UNIT/ML VIAL SQ ONE (12:47)
[2020-09-04 13:17] VITALS: BMI 41.9
[2020-09-04] MEDS ORDERED: SODIUM HYPOCHLORITE 0.25% 480 ML BOT MISCELLANE SCH (14:15)
--- NOTE | 2020-09-04 15:16 | P.PN ---
Subjective Progress Note Date: 09/04/20 This is a 65-year-old insulin-dependent diabetic woman the practice. 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 She reports her sugars have been elevated since yesterday morning. She has not been able to eat or drink much. She denies any chest pains, pressures or shortness of breath. She's been having some fever, anorexia and minimal nausea. 11 consult for management of her diabetes. She has received or feet emergency room to help control her pain symptoms. She is currently on Zosyn and has received a dose of Flagyl as well. IV fluids at 130 mL an hour. 08/31/2020:patient is NPO after midnbioght for robot assisted appy today at noon. She tolerated clears overnight. She is on IV 0.9NS@100cc/hr. Anitbiotic coverage with Zosyn & FLagyl. Her cierra nis tolerable at thsi time. No chest pain of SOB. some nausea but no emesis. sugars per her CGM are 200's/ Her lantus is being held and she remains on scale, 09/01/2020 postop day 1 for laparoscopic appendectomy with lysis of adhesions,partial cecotomy with drainage of abscess,secondary to gangrenous ruptured appendicitis with appendiceal abscess.tolerated procedure well. cultures pending. Maintained on, zosyn, flagyl. t-max 99 with normal wbc. creatinine nearing baseline at 1.6. Tolerating clear liquid consistent carb diet with no nausea vomiting or diarrhea.pain controlled, currently rated at "3". patient has history of postoperative urinary retention. Has required straight cath 2 in addition to being on Flomax. Ambulating in hallway, tolerating exertion well. Denies chest pain, palpitations or shortness of breath. 09/02/2020 patient reported significant pain with nausea last night and through the noc analyst hours, significantly improved with Dilaudid and Decadron. Di et advanced yesterday, tolerating well with no nausea or vomiting today. Blood sugars in the 200s. Worsening renal function, BUN 26, creatinine 1.91 potassium 5, magnesium, phosphorus within normal limits. Lazo catheter to be discontinued this morning, pending. Afebrile, WBC increased to 15.3. 09/03/2020 Feels better,consuming 75%, denies nausea vomiting.Pain controlled. Afebrile, yesterday WBC increased to 15.3, today trending down to 13.3. Wound cultures reporting E. coli .Blood sugars uncontrolled, hyperglycemic. Decadron discontinued. Continues on IV fluid hydration, Creatinine continues to worsen, up to 2.08. 09/04/2020 . Evaluated by urology, nephrology and infectious diseases, recommendations noted. Reporting nausea and [place], home medication of Tylenol 3 resumed as per surgery. Currently up on bedside commode, voiding without difficulty, no retention reported. Reporting increased weakness, difficulty with ADLs, requesting possible short-term rehab. Complains of fluid overload, received a dose of Lasix IV push. Creatine 2.09 , CO2 19 .PT evaluation in prog ress. Tolerating diet with no nausea or vomiting. Anaerobic culture reporting gram-negative bacilli , wound culture reporting E. coli.Afebrile,WBC WNL. Blood sugars better controlled. Denies chest pain, palpitations or shortness of breath. Objective - Vital Signs Vital signs: Vital Signs Temp 98.2 F 09/04/20 12:25 Pulse 75 09/04/20 12:25 Resp 18 09/04/20 12:25 BP 128/69 09/04/20 12:25 Pulse Ox 96 09/04/20 08:05 Intake & Output 09/03/20 09/04/20 09/04/20 18:59 06:59 18:59 Intake Total 500 1160 Output Total 1215 371 720 Balance -715 789 -720 Intake: Oral 500 1160 Output: Drainage 365 325 120 Left Lower Abdomen 365 325 120 Urine 850 600 Post Void Residual 46 Other: Voiding Method Toilet Toilet Toilet # Voids 2 1 # Bowel Movements 1 1 - Exam PHYSICAL EXAM: VITAL SIGNS: [as above] GENERAL: Sitting up on BSC, alert and oriented 3, no acute distress HEENT: Conjunctivae normal. eyes normal. oral mucosa moist NECK: No JVD. No thyroid enlargement. CARDIOVASCULAR: S1, S2 regular. No murmur RESPIRATION: Breath sounds diminished in the bases. ABDOMEN: Soft, status post surgery,No guarding.MARIAN with cloudy serous drainage, positive bowel sounds. LEGS: No edema. no swelling.no clubbing or cyanosis, no calf tenderness. NERVOUS SYSTEM: Cranial N 2-12 grossly normal. No focal deficits. STERN. Strength and sensation grossly intact. Skin: warm and dry,no rash - Labs CBC & Chem 7: 09/04/20 05:58 09/04/20 05:58 Labs: Abnormal Lab Results - Last 24 Hours (Table) 09/03/20 09/03/20 09/03/20 Range/Units 12:37 15:19 17:23 RBC (3.80-5.40) m/uL Hgb (11.4-16.0) gm/dL MCHC (31.0-37.0) g/dL Sodium 134 L (137-145) mmol/L Chloride 114 H (98-107) mmol/L Carbon Dioxide 13 L (22-30) mmol/L BUN 43 H (7-17) mg/dL Creatinine 2.13 H (0.52-1.04) mg/dL Glucose 226 H (74-99) mg/dL POC Glucose (mg/dL) 275 H 181 H (75-99) mg/dL Calcium 6.8 L (8.4-10.2) mg/dL 09/03/20 09/04/20 09/04/20 Range/Units 21:02 05:58 05:58 RBC 3.72 L (3.80-5.40) m/uL Hgb 11.1 L (11.4-16.0) gm/dL MCHC 29.8 L (31.0-37.0) g/dL Sodium (137-145) mmol/L Chloride 114 H (98-107) mmol/L Carbon Dioxide 19 L (22-30) mmol/L BUN 48 H (7-17) mg/dL Creatinine 2.09 H (0.52-1.04) mg/dL Glucose 138 H (74-99) mg/dL POC Glucose (mg/dL) 192 H (75-99) mg/dL Calcium 6.7 L (8.4-10.2) mg/dL 09/04/20 Range/Units 06:38 RBC (3.80-5.40) m/uL Hgb (11.4-16.0) gm/dL MCHC (31.0-37.0) g/dL Sodium (137-145) mmol/L Chloride (98-107) mmol/L Carbon Dioxide (22-30) mmol/L BUN (7-17) mg/dL Creatinine (0.52-1.04) mg/dL Glucose (74-99) mg/dL POC Glucose (mg/dL) 130 H (75-99) mg/dL Calcium (8.4-10.2) mg/dL Microbiology - Last 24 Hours (Table) 08/31/20 15:22 Anaerobic Culture - Final Appendix Anaerobic Gm Negative Bacilli Anaerobic Gm Negative Bacilli#2 Assessment and Plan Assessment: (1) Acute appendicitis with lysis of adhesions, partial cecotomy and drainage of appendiceal abscess secondary to ruptured gangrenous appendicitis , wound culture reporting E. coli, anaerobic culture reporting gram-negative bacilli Current Visit: Yes Status: Acute Code(s): K35.80 - UNSPECIFIED ACUTE APPENDICITIS SNOMED Code(s): 49722492 (2) acute on chronic renal failure, Stage 3. Acute secondary to hypoperfusion. Current Visit: Yes Status: Chronic Code(s): N18.30 - SNOMED Code(s): 746546003 (3) Insulin dependent diabetes mellitus,hemoglobin A1c 7.4, hyperglycemic Current Visit: Yes Status: Chronic Code(s): CKW1229 - SNOMED Code(s): 63587687 (4) Essential (primary) hypertension Current Visit: No Status: Chronic Code(s): I10 - ESSENTIAL (PRIMARY) HYPERTENSION SNOMED Code(s): 13576126 (5) Mixed hyperlipidemia Current Visit: No Status: Chronic Code(s): E78.2 - MIXED HYPERLIPIDEMIA SNOMED Code(s): 394849681 (6) Gout due to renal impairment Current Visit: No Status: Chronic Code(s): M10.30 - GOUT DUE TO RENAL IMPAIRMENT, UNSPECIFIED SITE SNOMED Code(s): 917515076 (7) Vitamin D deficiency Current Visit: No Status: Chronic Code(s): E55.9 - VITAMIN D DEFICIENCY, UNSPECIFIED SNOMED Code(s): 11123958 (8) Chronic lower back pain Current Visit: Yes Status: Chronic Code(s): M54.5 - LOW BACK PAIN; G89.29 - OTHER CHRONIC PAIN SNOMED Code(s): 071338765 (9)History of pulmonary embolism Current Visit: Yes Status: Chronic Code(s): Z86.711 - PERSONAL HISTORY OF PULMONARY EMBOLISM SNOMED Code(s): 826821104 (10) postoperative urinary retention in a patient with history of. (11) morbid obesity, BMI 38.7 plan: Continue on current medication regimen, monitoring and symptomatic treatment. Antibiotics as per ID. PT/OT. Increase ambulation as tolerated. Pain management as per surgery. Aggressive pulmonary toileting with incentive spirometer, reinforced. Pre-meal insulin adjusted with parameters;close monitoring of Accu-Cheks. Close monitoring of renal function, electrolytes with repeat labs ordered for a.m. potential subacute rehab pending PT evaluation. The impression and plan of care has been dictated as directed. : I performed a history and examination of this patient, discussed the same with the dictator. I agree with the dictator's note ,documented as a scribe. Any additional findings or plans will be noted.
--- NOTE | 2020-09-04 15:55 | P.DS ---
Providers Date of admission: 08/30/20 06:54 Expected date of discharge: 09/04/20 Attending physician: Jeannie Fisher Consults: 08/30/20 13:22 Consult Physician Routine Consulting Provider: Bradley Orozco Consult Reason/Comments: Medical management Do you want consulting provider notified?: Already Contacted 08/30/20 13:24 Consult Physician Routine Consulting Provider: [facility] Consult Reason/Comments: Anesthesia Care Do you want consulting provider notified?: Yes 09/02/20 15:33 Consult Physician Routine Consulting Provider: Ghulam Jalloh Consult Reason/Comments: worsening kidney function Do you want consulting provider notified?: Yes 09/02/20 20:03 Consult Physician Routine Consulting Provider: Inocente Flannery Consult Reason/Comments: Peritonitis, ruptured appendicitis Do you want consulting provider notified?: Yes, Notify in am 09/03/20 11:43 Consult Physician Urgent Consulting Provider: Kwasi Chu Consult Reason/Comments: Elevated BUN/Creat Do you want consulting provider notified?: Yes Primary care physician: Bradley Orozco Hospital Course: Discharge diagnosis 1. Gangrenous ruptured appendicitis with appendiceal abscess and peritonitis with sepsis.Status post Robotic-assisted daVinci Xi laparoscopic lysis of adhesions over 1 hr, Robotic-assisted daVinci Xi laparoscopic appendectomy with partial cecotomy with drainage of periappendiceal abscess 2. Diabetes type 2, insulin-dependent 3. Diabetic neuropathy 4. Hypertensive heart disease 5. Morbid obesity due to excess calories, BMI 38.7 6. Hyperlipidemia 7. Iron deficiency anemia 8. Vitamin D deficiency 9. Gout 10. Diabetic nephropathy, stage III 11. Past history of pulmonary embolism 12. Acute kidney injury likely due to hypoperfusion. Followed by nephrology who was adjusted the pressure medication Hospital course This is a 65-year-old female who presented with severe acute Onset of right lower quadrant abdominal pain. She had a computed tomography scan of the abdomen and pelvis demonstrating appendicitis with potential rupture. Patient is status post Robotic-assisted daVinci Xi laparoscopic lysis of adhesions over 1 hr, Robotic-assisted daVinci Xi laparoscopic appendectomy with partial cecotomy with drainage of periappendiceal abscess. She's tolerated surgery well. He also received IV antibiotics. She is tolerating diet. She denies any nausea or vomiting. She is having bowel movements. She has been up and ambulating with assistance. Physical therapy is recommending rehab. Patient will be discharged to [facility] for further rehabilitation. Infectious diseases recommending Cipro and Flagyl for 10 more days. Nephrology has also cleared patient for discharge. Patient is stable for discharge. Please refer to chart for any further details. Physician Philosophy Faculty note has been reviewed by physician. Signing provider agrees with the documented findings, assessment, and plan of care. Patient Condition at Discharge: Stable Plan - Discharge Summary Discharge Rx Participant: Yes New Discharge Prescriptions: New Ciprofloxacin HCl [Cipro] 500 mg PO Q12HR 10 Days #20 tab metroNIDAZOLE [Flagyl] 500 mg PO Q8HR #30 tab Furosemide [Lasix] 40 mg PO DIRECTED #30 tablet Gabapentin [Neurontin] 300 mg PO TID #9 cap Acetaminophen-Codeine 300-30mg [Tylenol w/codeine #3] 1 each PO Q6HR PRN #12 tab PRN Reason: Pain Bisoprolol [Zebeta] 2.5 mg PO QAM tab Continue Insulin Glargine [Lantus] 38 units SQ HS Insulin Aspart [NovoLOG Flexpen] See Protocol SQ ACHS Insulin Aspart [NovoLOG Flexpen] 5 unit SQ ACHS sitaGLIPtin PHOS/metFORMIN HCL [Janumet Xr 50-1,000 mg Tablet] 1 each PO DAILY Ergocalciferol [Vitamin D2 (DRISDOL)] 50,000 unit PO AVILA Gabapentin [Neurontin] 300 mg PO TID Ferrous Sulfate [Feosol] 325 mg PO DAILY allopurinoL [Zyloprim] 100 mg PO DAILY Melatonin 10 mg PO HS calcitrioL [Calcitriol] 0.5 mcg PO AVILA Simvastatin [Zocor] 20 mg PO DAILY Pantoprazole [Protonix] 40 mg PO DAILY diazePAM [Valium] 5 mg PO HS PRN #3 tab PRN Reason: Pain Discontinued Acetaminophen-Codeine 300-30mg [Tylenol w/codeine #3] 1 tab PO DAILY PRN PRN Reason: back pain Bisoprolol [Zebeta] 5 mg PO QAM Discharge Medication List Insulin Aspart [NovoLOG Flexpen] See Protocol SQ ACHS 12/22/16 [History] Insulin Glargine [Lantus] 38 units SQ HS 12/22/16 [History] Insulin Aspart [NovoLOG Flexpen] 5 unit SQ ACHS 03/23/18 [History] Ergocalciferol [Vitamin D2 (DRISDOL)] 50,000 unit PO AVILA 08/22/19 [History] Ferrous Sulfate [Feosol] 325 mg PO DAILY 08/22/19 [History] Gabapentin [Neurontin] 300 mg PO TID 08/22/19 [History] Melatonin 10 mg PO HS 08/22/19 [History] allopurinoL [Zyloprim] 100 mg PO DAILY 08/22/19 [History] sitaGLIPtin PHOS/metFORMIN HCL [Janumet Xr 50-1,000 mg Tablet] 1 each PO DAILY 08/22/19 [History] Simvastatin [Zocor] 20 mg PO DAILY 08/30/20 [History] calcitrioL [Calcitriol] 0.5 mcg PO AVILA 08/30/20 [History] Pantoprazole [Protonix] 40 mg PO DAILY 09/02/20 [History] Acetaminophen-Codeine 300-30mg [Tylenol w/codeine #3] 1 each PO Q6HR PRN #12 tab 09/04/20 [Rx] Bisoprolol [Zebeta] 2.5 mg PO QAM tab 09/04/20 [Rx] Ciprofloxacin HCl [Cipro] 500 mg PO Q12HR 10 Days #20 tab 09/04/20 [Rx] Furosemide [Lasix] 40 mg PO DIRECTED #30 tablet 09/04/20 [Rx] Gabapentin [Neurontin] 300 mg PO TID #9 cap 09/04/20 [Rx] diazePAM [Valium] 5 mg PO HS PRN #3 tab 09/04/20 [Rx] metroNIDAZOLE [Flagyl] 500 mg PO Q8HR #30 tab 09/04/20 [Rx] Follow up Appointment(s)/Referral(s): Jeannie Fisher MD [STAFF PHYSICIAN] - 09/08/20 Bradley Orozco MD [Primary Care Provider] - 1-2 days Miriam Petit MD [STAFF PHYSICIAN] - 1 Week Ambulatory/Diagnostic Orders: Basic Metabolic Panel [LAB.AMB] Time Frame: 1 Week, Location: None Selected Patient Instructions/Handouts: Appendicitis (GEN), Jarrod-Hardy Drain Care (DC), Acute Urinary Retention in Women (ED), Laparoscopic Appendectomy (DC) Activity/Diet/Wound Care/Special Instructions: Continue renal diabetic diet as tolerated. fluids are encouraged. No lifting over 10 pounds in 2 weeks, 09/18/20. May shower. No bath tub soaks for two weeks, 09/18/20. No driving while on narcotic pain medications. Notify surgeon for temperature over 101.5, increased redness along incision, increased pain along surgical site. Keep a log of MARIAN drain output and bring with you to your follow-up appointment Milk/strip drains 2-3 times a day Discharge Disposition: HOME SELF-CARE
--- NOTE | 2020-09-04 16:47 | PN ---
PROGRESS NOTE DATE OF SERVICE: 09/04/2020 REASON FOR FOLLOWUP: Perforated appendicitis, abdominal abscess. INTERVAL HISTORY: The patient is currently afebrile. The patient is breathing comfortably. She has been complaining of abdominal distention as well as lower extremity swelling. The patient will be started on Lasix. No chest pain or cough. No worsening abdominal pain or diarrhea. PHYSICAL EXAMINATION: Blood pressure 128/69, pulse of 75, temperature 98.2. General description is an elderly female up in the chair in no distress. RESPIRATORY SYSTEM: Unlabored breathing with decreased breath sounds at the base. No wheeze. HEART: S1, S2. Regular rate and rhythm. ABDOMEN: Soft. Mildly distended. No guarding or rigidity. LABS: Creatinine is 2.09. Hemoglobin is 11.1, white count 8.4. Abdominal culture with anaerobes and E coli. DIAGNOSTIC IMPRESSION AND PLAN: Patient with abdominal abscess from perforated diverticulitis, status post appendectomy. Patient is covered with Zosyn, finishing therapy with oral Ceftin and Flagyl once stable for discharge regulatory affairs consultant. Continue with supportive care. MMODL / IJN: [id number] /
[2020-09-04] MEDS ORDERED: INSULIN ASPART (NovoLOG) 100 UNIT/ML VIAL SQ SCH (17:30)
[2020-09-04 17:58] LABS: Glucose,Whole Blood 147 mg/dL (75-99)
--- NOTE | 2020-09-04 20:14 | PN ---
PROGRESS NOTE The patient is seen for followup for acute kidney injury on top of chronic kidney disease. She has had a laparoscopic appendectomy for ruptured appendicitis. There was some concern for bladder laceration. However, the fluid in the MARIAN drain which initially looked quite clear, is not actually urine and overall patient states she is feeling better. She is complaining of increased edema in the lower extremities. Blood pressure had been on the lower side. Therefore, her antihypertensive medications were decreased. The patient has had good urine output. EXAMINATION: Today blood pressure 128/69, heart rate 75 per minute, patient is afebrile. Examination of the heart S1, S2. Examination of the lungs, bilateral breath sounds are heard. ABDOMEN: Soft, tender. Exam of lower extremities shows edema 2+ bilaterally. PART TIME exam grossly intact. LABS: Show sodium 139, potassium 4.5, chloride 114, CO2 is 19, BUN 48, serum creatinine 2.09, calcium 6.7. ASSESSMENT: 1. Acute kidney injury associated with hypotension, hypoperfusion, acute tubular necrosis, currently nonoliguric, fairly stable. Antihypertensive medication has been decreased. 2. Volume overload. I will discontinue the IV fluids and I will give her a dose of IV Lasix. We will add oral loop diuretics upon discharge. 3. Metabolic acidosis associated with renal failure, currently improved, post bicarb drip. 4. Hypertension blood pressure currently on the lower side, status post decreased dose of bisoprolol. 5. Ruptured appendicitis status post laparoscopic robotic appendectomy. PLAN: Patient can be discharged from nephrology standpoint. Follow up as outpatient in about one week's time. Take Lasix 40 mg every other day and decreased Bisoprolol dose. Repeat labs in about one week post discharge. MMODL / IJN: [id number] /
== END 2020-09-04 18:35 | DRG 853 ==
LOC: EC 03:58 → 4SSUR 06:54 → 6PED 09-01 09:53
PROVIDERS: ADMIT Surgery Plastic and Reconstructive Surgery; ATTEND Surgery Plastic and Reconstructive Surgery
PROC: 3E1M38Z Irrigation of Peritoneal Cavity using Irrigating Substance, Percutaneous Approach (ICD-10-PCS; principal; 2020-08-31 10:20)
PROC: 0DNU4ZZ Release Omentum, Percutaneous Endoscopic Approach (ICD-10-PCS; principal; 2020-08-31 10:20)
PROC: 8E0W4CZ Robotic Assisted Procedure of Trunk Region, Percutaneous Endoscopic Approach (ICD-10-PCS; principal; 2020-08-31 10:20)
PROC: 0D9J40Z Drainage of Appendix with Drainage Device, Percutaneous Endoscopic Approach (ICD-10-PCS; principal; 2020-08-31 10:20)
PROC: 0DTJ4ZZ Resection of Appendix, Percutaneous Endoscopic Approach (ICD-10-PCS; principal; 2020-08-31 10:20)
PROC: 0DBH4ZZ Excision of Cecum, Percutaneous Endoscopic Approach (ICD-10-PCS; principal; 2020-08-31 10:20)
DX: A41.51 Sepsis due to Escherichia coli [E. coli] (principal); K35.33 Acute appendicitis with perforation, localized peritonitis, and gangrene, with abscess; N17.0 Acute kidney failure with tubular necrosis; E87.2 Acidosis; N39.0 Urinary tract infection, site not specified; R18.8 Other ascites; D50.9 Iron deficiency anemia, unspecified; E11.22 Type 2 diabetes mellitus with diabetic chronic kidney disease; E11.40 Type 2 diabetes mellitus with diabetic neuropathy, unspecified; E11.65 Type 2 diabetes mellitus with hyperglycemia; E55.9 Vitamin D deficiency, unspecified; E66.01 Morbid (severe) obesity due to excess calories; E78.2 Mixed hyperlipidemia; E87.70 Fluid overload, unspecified; G89.29 Other chronic pain; M54.9 Dorsalgia, unspecified; I13.10 Hypertensive heart and chronic kidney disease without heart failure, with stage 1 through stage 4 chronic kidney disease, or unspecified chronic kidney disease; Z86.711 Personal history of pulmonary embolism; K38.1 Appendicular concretions; Z20.828 Contact with and (suspected) exposure to other viral communicable diseases; K46.9 Unspecified abdominal hernia without obstruction or gangrene; K66.0 Peritoneal adhesions (postprocedural) (postinfection); M10.30 Gout due to renal impairment, unspecified site; T38.0X5A Adverse effect of glucocorticoids and synthetic analogues, initial encounter; Z68.38 Body mass index [BMI] 38.0-38.9, adult; Z79.4 Long term (current) use of insulin; Z79.899 Other long term (current) drug therapy; Z87.442 Personal history of urinary calculi; Z98.1 Arthrodesis status; M19.90 Unspecified osteoarthritis, unspecified site; Z88.2 Allergy status to sulfonamides; Z88.8 Allergy status to other drugs, medicaments and biological substances; N18.30 Chronic kidney disease, stage 3 unspecified
CPT/HCPCS: 36415; 74176; 76770; 80048; 80053; 81001; 82330; 82570; 83036; 83690; 83735; 84100; 85025; 85610; 85730; 86140; 87070; 87075; 87077; 87086; 87186; 87205; 87635; 88304; 93005; 96361; 96365; 96367; 99285

== ENCOUNTER → 2021-01-15 | Outpatient (CLI) | payer MEDICARE ==
[2021-01-15 16:34] LABS: Appearance,Urine Clear (Clear); Bacteria,Urine Moderate /hpf; Bilirubin,Urine Negative (Negative); Blood,Urine Negative (Negative); Color,Urine Light Yellow; Creatinine,Urine Random 39.4 mg/dL; Glucose,Urine (UA) Negative (Negative); Ketones,Urine Negative (Negative); Leukocyte Esterase,Urine Moderate (Negative); Mucus,Urine Rare /hpf; Nitrite,Urine Negative (Negative); PH, Urine 5.5 (5.0-8.0); Protein,Urine Negative (Negative); Protein/Creatinine Ratio,Urine 0.355; Specific Gravity,Urine 1.008 (1.001-1.035); Squamous Epithelial Cell,Urine 1 /hpf (0-4); Urobilinogen,Urine <2.0 mg/dL (<2.0); WBC,Urine 17 /hpf (0-5)
[2021-01-15 23:18] LABS: Basophils # (A) 0.04 X 10*3/uL (0.00-0.10); Basophils % (A) 0.6 %; Eosinophils % (A) 2.9 %; HCT 40.7 % (37.2-46.3); HGB 12.6 g/dL (12.0-15.0); Lymphocytes # (A) 1.52 X 10*3/uL (0.90-5.00); Lymphocytes % (A) 21.8 %; MCV 96.9 fL (80.0-97.0); Mean Platelet Volume 11.8 fL (9.5-12.2); Monocytes # (A) 0.72 X 10*3/uL (0.20-1.00); Monocytes % (A) 10.3 %; Neutrophils # (A) 4.49 X 10*3/uL (1.80-7.70); Neutrophils % (A) 64.3 %; Platelet Count 238 X 10*3/uL (140-440); RDW 13.8 % (11.5-14.5); WBC 6.98 X 10*3/uL (4.50-10.00)
[2021-01-16 02:17] LABS: % Iron Saturation 21.97 (12.00-45.00); African American GFR (CKD) 29.4 (60.0-200.0); Anion Gap 9.4 mmol/L (4.00-12.00); Calcium 8.6 mg/dL (8.7-10.3); Carbon Dioxide 22.6 mmol/L (21.6-31.8); Non-African American GFR(CKD) 25.4 (60.0-200.0); Potassium 4.9 mmol/L (3.5-5.5); Uric Acid 6.2 mg/dL (2.9-7.7)
[2021-01-16 02:18] LABS: Albumin 4.2 g/dL (3.80-4.90); Magnesium 1.7 mg/dL (1.5-2.4); Phosphorus 4.2 mg/dL (2.4-5.1)
== END | disposition home or self-care (01) ==
LOC: LABWHC1 15:05
PROVIDERS: ATTEND Internal Medicine Nephrology
DX: N39.0 Urinary tract infection, site not specified (principal); E55.9 Vitamin D deficiency, unspecified; N25.81 Secondary hyperparathyroidism of renal origin; E83.39 Other disorders of phosphorus metabolism; M10.9 Gout, unspecified; D63.1 Anemia in chronic kidney disease; N18.30 Chronic kidney disease, stage 3 unspecified; R80.9 Proteinuria, unspecified
CPT/HCPCS: 36415; 80048; 81001; 82040; 82306; 82570; 82728; 83540; 83550; 83735; 83970; 84100; 84156; 84550; 85025

== ENCOUNTER → 2021-03-24 | Outpatient (CLI) | payer MEDICARE ==
--- NOTE | 2021-03-24 14:22 | BD ---
EXAMINATION TYPE: Axial Bone Density DATE OF EXAM: 03/24/2021 COMPARISON: NONE CLINICAL HISTORY: Height: 65 Weight: 239.3 FRAX RISK QUESTIONS: Alcohol (3 or more units per day): no Family History (Parent hip fracture): no Glucocorticoids (More than 3mos): no (Ex: prednisone, prednisolone, methylprednisolone, dexamethasone, and hydrocortisone). History of Fracture in Adulthood: no Secondary Osteoporosis: 1. Type 1 Diabetes: no 2. Hyperthyroidism: no 3. Menopause before 45: no 4. Malnutrition: no 5. Chronic liver disease: no Rheumatoid Arthritis: no Current Tobacco Use: no RISK FACTORS HISTORY OF: Surgery to Spine/Hip(right/left)/Wrist (right/left): l-spine When: 3 years ago Family History of Osteoporosis: no Active: no Diet low in dairy products/other sources of calcium: yes Postmenopausal woman: age 49 Lost more than 2 inches in height since high school: yes MEDICATIONS: simvastatin, Lantus, novalog, bisoprolol, allopurinol, ferrous sulfate vit d, calcium, gabapentin Additional History: EXAM MEASUREMENTS: Bone mineral densitometry was performed using the CE Interactive System. Bone mineral density about the R hip (g/cm2): 0.910 Bone mineral density about the L hip (g/cm2): 0.838 T Score values are as follows: -----R Neck: -0.9 -----L Neck: -1.4 -----R Total: -0.2 -----L Total: -0.9 Bone mineral density has: decreased -12.6 % since study of: 02.22.2012 Bone mineral density about the L Wrist (g/cm2): 0.627 T Score values are as follows: -----Dist. R+U: -0.8 -----Prox. R+U: -0.6 -----Radius total: -0.8 Bone mineral density : baseline IMPRESSION: No evidence for osteoporosis or osteopenia. NOTE: T-SCORE=SD OF THE YOUNG ADULT MEAN.
--- NOTE | 2021-03-25 12:27 | MM ---
Reason for exam: screening (asymptomatic). Last mammogram was performed 1 year and 5 months ago. History: Patient is postmenopausal and had first child at age 33. Family history of breast cancer in sister at age 58. Benign cyst aspiration of the left breast. Benign excisional biopsy of the left breast. Physical Findings: A clinical breast exam by your physician is recommended on an annual basis and results should be correlated with mammographic findings. MG 3D Screening Mammo W/Cad Bilateral CC and MLO view(s) were taken. Prior study comparison: November 07, 2019, bilateral MG 3d screening mammo w/cad. October 16, 2018, bilateral MG 3d screening mammo w/cad. There are scattered fibroglandular densities. There is no discrete abnormality. No significant changes when compared with prior studies. ASSESSMENT: Negative, BI-RAD 1 RECOMMENDATION: Routine screening mammogram of both breasts in 1 year.
== END | disposition home or self-care (01) ==
LOC: RADMAMWWP 12:17
PROVIDERS: ATTEND Family Medicine
DX: Z12.31 Encounter for screening mammogram for malignant neoplasm of breast (principal); M85.852 Other specified disorders of bone density and structure, left thigh; Z78.0 Asymptomatic menopausal state; Z80.3 Family history of malignant neoplasm of breast
CPT/HCPCS: 77063; 77067; 77080

== ENCOUNTER → 2021-03-24 | Outpatient (CLI) | payer MEDICARE ==
--- NOTE | 2021-03-24 13:35 | US ---
EXAMINATION TYPE: US kidneys/renal and bladder DATE OF EXAM: 03/24/2021 COMPARISON: NONE CLINICAL HISTORY: N18.3 CKD STAGE 3. CKD stage 3 EXAM MEASUREMENTS: Right Kidney: 9.8 x 4.6 x 3.8 cm Left Kidney: 9.4 x 4.4 x 3.5 cm Right Kidney: no evidence of hydronephrosis Left Kidney: no evidence of hydronephrosis Bladder: appears wnl Bilateral Jets seen: no There is no evidence for hydronephrosis at this point in time. No nephrolithiasis is seen. No radha s are identified. The urinary bladder is anechoic. Bilateral ureteral jets are seen. IMPRESSION: No distinct abnormality appreciated.
== END | disposition home or self-care (01) ==
LOC: RADUSWWP 12:15
PROVIDERS: ATTEND Internal Medicine
DX: N18.30 Chronic kidney disease, stage 3 unspecified (principal)
CPT/HCPCS: 76770

== ENCOUNTER → 2021-05-14 | Outpatient (CLI) | payer MEDICARE ==
[2021-05-14 13:24] LABS: Appearance,Urine Clear (Clear); Bacteria,Urine Many /hpf; Bilirubin,Urine Negative (Negative); Blood,Urine Negative (Negative); Color,Urine Light Yellow; Glucose,Urine (UA) 1+ (Negative); Ketones,Urine Negative (Negative); Leukocyte Esterase,Urine Moderate (Negative); Nitrite,Urine Positive (Negative); PH, Urine 5.5 (5.0-8.0); Protein,Urine Negative (Negative); RBC,Urine <1 /hpf (0-5); Specific Gravity,Urine 1.009 (1.001-1.035); Squamous Epithelial Cell,Urine 1 /hpf (0-4); Urobilinogen,Urine <2.0 mg/dL (<2.0); WBC,Urine 14 /hpf (0-5)
[2021-05-14 18:42] LABS: HCT 38.8 % (37.2-46.3); HGB 12.1 g/dL (12.0-15.0); MCHC 31.2 g/dL (32.0-37.0); MCV 99.5 fL (80.0-97.0); Mean Platelet Volume 11.3 fL (9.5-12.2); Platelet Count 229 X 10*3/uL (140-440); RDW 13.9 % (11.5-14.5); WBC 7.52 X 10*3/uL (4.50-10.00)
[2021-05-14 20:13] LABS: % Iron Saturation 34.44 (12.00-45.00); African American GFR (CKD) 35.8 (60.0-200.0); Albumin 3.9 g/dL (3.80-4.90); Albumin/Globulin Ratio 1.95 (1.60-3.17); Anion Gap 5.7 mmol/L (4.00-12.00); BUN/Creat Ratio 22.35 Ratio (12.00-20.00); Calcium 8.9 mg/dL (8.7-10.3); Carbon Dioxide 25.3 mmol/L (21.6-31.8); Non-African American GFR(CKD) 30.9 (60.0-200.0); Phosphorus 4.9 mg/dL (2.4-5.1); Potassium 5.1 mmol/L (3.5-5.5); Total Bilirubin 0.3 mg/dL (0.2-1.2); Total Protein 5.9 g/dL (6.2-8.2); Uric Acid 5.7 mg/dL (2.9-7.7)
[2021-05-14 20:14] LABS: Ferritin 147.3 ng/mL (10.0-291.0)
[2021-05-14 20:22] LABS: Urine Creatinine 36.6 mg/dL
== END | disposition home or self-care (01) ==
LOC: LABWHC1 12:40
PROVIDERS: ATTEND Internal Medicine
DX: N39.0 Urinary tract infection, site not specified (principal); N18.30 Chronic kidney disease, stage 3 unspecified; N25.81 Secondary hyperparathyroidism of renal origin; E55.9 Vitamin D deficiency, unspecified; M10.9 Gout, unspecified; D64.9 Anemia, unspecified; R80.9 Proteinuria, unspecified
CPT/HCPCS: 36415; 80053; 81001; 82043; 82306; 82570; 82728; 83540; 83550; 83970; 84100; 84550; 85027; 87077; 87086; 87186

== ENCOUNTER → 2021-09-13 | Outpatient (CLI) | payer MEDICARE ==
[2021-09-13 13:41] LABS: Appearance,Urine Clear (Clear); Bilirubin,Urine Negative (Negative); Blood,Urine Negative (Negative); Color,Urine Light Yellow; Glucose,Urine (UA) Negative (Negative); Ketones,Urine Negative (Negative); Leukocyte Esterase,Urine Negative (Negative); Nitrite,Urine Negative (Negative); PH, Urine 5.5 (5.0-8.0); Protein,Urine Negative (Negative); Specific Gravity,Urine 1.011 (1.001-1.035); Urobilinogen,Urine <2.0 mg/dL (<2.0)
[2021-09-13 19:18] LABS: Basophils # (A) 0.05 X 10*3/uL (0.00-0.10); Basophils % (A) 0.5 %; HCT 45.1 % (37.2-46.3); HGB 14.2 g/dL (12.0-15.0); Lymphocytes # (A) 1.92 X 10*3/uL (0.90-5.00); Lymphocytes % (A) 19.4 %; MCH 31.3 pg (27.0-32.0); MCHC 31.5 g/dL (32.0-37.0); MCV 99.3 fL (80.0-97.0); Mean Platelet Volume 11.1 fL (9.5-12.2); Monocytes # (A) 0.71 X 10*3/uL (0.20-1.00); Monocytes % (A) 7.2 %; Neutrophils # (A) 7.01 X 10*3/uL (1.80-7.70); Neutrophils % (A) 70.6 %; Platelet Count 295 X 10*3/uL (140-440); RBC 4.54 X 10*6/uL (4.10-5.20); RDW 13.4 % (11.5-14.5); WBC 9.92 X 10*3/uL (4.50-10.00)
[2021-09-14 00:58] LABS: % Iron Saturation 32.16 (12.00-45.00); African American GFR (CKD) 37.4 (60.0-200.0); Albumin 4.1 g/dL (3.8-4.9); Albumin/Globulin Ratio 1.9 (1.60-3.17); BUN/Creat Ratio 14.36 Ratio (12.00-20.00); Blood Urea Nitrogen 23.4 mg/dL (9.0-27.0); Calcium 9.8 mg/dL (8.7-10.3); Carbon Dioxide 22.3 mmol/L (21.6-31.8); Globulin 2.2 g/dL (1.6-3.3); Magnesium 1.9 mg/dL (1.5-2.4); Non-African American GFR(CKD) 32.3 (60.0-200.0); Potassium 4.8 mmol/L (3.5-5.5); Total Bilirubin 0.3 mg/dL (0.30-1.20); Total Protein 6.3 g/dL (6.2-8.2); Uric Acid 5.3 mg/dL (2.9-7.7)
[2021-09-14 06:57] LABS: Urine Creatinine 62.1 mg/dL (28.0-217.0)
== END | disposition home or self-care (01) ==
LOC: LABWHC1 11:01
PROVIDERS: ATTEND Internal Medicine
DX: N18.32 Chronic kidney disease, stage 3b (principal); M10.9 Gout, unspecified; E55.9 Vitamin D deficiency, unspecified; N25.81 Secondary hyperparathyroidism of renal origin; N39.0 Urinary tract infection, site not specified; D64.9 Anemia, unspecified
CPT/HCPCS: 36415; 80053; 81003; 82043; 82306; 82550; 82570; 82728; 83540; 83550; 83735; 83970; 84100; 84550; 85025

== ENCOUNTER → 2022-02-03 | Outpatient (CLI) | payer MEDICARE ==
[2022-02-03 15:19] LABS: Appearance,Urine Clear (Clear); Bilirubin,Urine Negative (Negative); Blood,Urine Negative (Negative); Color,Urine Light Yellow; Glucose,Urine (UA) Negative (Negative); Ketones,Urine Negative (Negative); Leukocyte Esterase,Urine Negative (Negative); Nitrite,Urine Negative (Negative); Protein,Urine Negative (Negative); Specific Gravity,Urine 1.009 (1.001-1.035); Urobilinogen,Urine <2.0 mg/dL (<2.0)
[2022-02-03 22:58] LABS: HCT 42.4 % (37.2-46.3); HGB 13.1 g/dL (12.0-15.0); MCH 30.5 pg (27.0-32.0); MCHC 30.9 g/dL (32.0-37.0); MCV 98.8 fL (80.0-97.0); Mean Platelet Volume 11.2 fL (9.5-12.2); NRBC Per 100 WBC 0 /100 WBCS (0.0-0.0); Platelet Count 269 X 10*3/uL (140-440); RBC 4.29 X 10*6/uL (4.10-5.20); RDW 13.5 % (11.5-14.5); WBC 8.99 X 10*3/uL (4.50-10.00)
[2022-02-04 08:48] LABS: % Iron Saturation 30.26 (12.00-45.00); African American GFR (CKD) 32.5 (60.0-200.0); Albumin 3.9 g/dL (3.8-4.9); Albumin/Globulin Ratio 1.73 (1.60-3.17); Anion Gap 21.3 mmol/L (10.00-18.00); BUN/Creat Ratio 16.01 Ratio (12.00-20.00); Blood Urea Nitrogen 29.3 mg/dL (9.0-27.0); Calcium 9.2 mg/dL (8.7-10.3); Carbon Dioxide 16.6 mmol/L (20.0-27.5); Globulin 2.3 g/dL (1.6-3.3); Non-African American GFR(CKD) 28.1 (60.0-200.0); Potassium 5.4 mmol/L (3.5-5.5); Total Bilirubin 0.3 mg/dL (0.30-1.20); Total Protein 6.2 g/dL (6.2-8.2); Uric Acid 5.5 mg/dL (2.9-7.7)
[2022-02-04 13:38] LABS: Microalbumin Creatinine Ratio <30 mg/g Creat (0-30); Urine Creatinine 39.6 mg/dL (28.0-217.0)
== END | disposition home or self-care (01) ==
LOC: LABWHC1 13:41
PROVIDERS: ATTEND Internal Medicine
DX: D64.9 Anemia, unspecified (principal); N18.32 Chronic kidney disease, stage 3b; N39.0 Urinary tract infection, site not specified; N25.81 Secondary hyperparathyroidism of renal origin; E55.9 Vitamin D deficiency, unspecified; M10.9 Gout, unspecified; R80.9 Proteinuria, unspecified
CPT/HCPCS: 36415; 80053; 81003; 82043; 82306; 82570; 82728; 83540; 83550; 83735; 83970; 84100; 84550; 85027

== ENCOUNTER → 2022-02-18 | Outpatient (CLI) | payer MEDICARE ==
[2022-02-18 18:12] LABS: ALT 42 U/L (8-44); AST 43 U/L (13-35); African American GFR (CKD) 40.7 (60.0-200.0); BUN/Creat Ratio 12.57 Ratio (12.00-20.00); Blood Urea Nitrogen 19.1 mg/dL (9.0-27.0); Carbon Dioxide 22.5 mmol/L (20.0-27.5); Chloride 104 mmol/L (96-109); Chol/HDL Ratio 4.04 Ratio; Glucose 211 mg/dL (70-110); LDL Cholesterol,Calculated 109.3 mg/dL (0.0-131.0); Non-African American GFR(CKD) 35.1 (60.0-200.0); Sodium 139 mmol/L (135-145); VLDL Calculation 17.86 mg/dL (5.00-40.00)
== END | disposition home or self-care (01) ==
LOC: LABWHC1 12:20
PROVIDERS: ATTEND Nurse Practitioner Family
DX: Z00.00 Encounter for general adult medical examination without abnormal findings (principal); I12.9 Hypertensive chronic kidney disease with stage 1 through stage 4 chronic kidney disease, or unspecified chronic kidney disease; E78.2 Mixed hyperlipidemia; E66.01 Morbid (severe) obesity due to excess calories; E11.49 Type 2 diabetes mellitus with other diabetic neurological complication; E11.22 Type 2 diabetes mellitus with diabetic chronic kidney disease; N18.9 Chronic kidney disease, unspecified; Z68.38 Body mass index [BMI] 38.0-38.9, adult
CPT/HCPCS: 36415; 80048; 80061; 84439; 84443; 84450; 84460

== ENCOUNTER → 2022-08-18 | Outpatient (CLI) | payer MEDICARE ==
[2022-08-18 12:20] LABS: Appearance,Urine Clear (Clear); Bilirubin,Urine Negative (Negative); Blood,Urine Negative (Negative); Color,Urine Light Yellow; Glucose,Urine (UA) Negative (Negative); Ketones,Urine Negative (Negative); Leukocyte Esterase,Urine Negative (Negative); Nitrite,Urine Negative (Negative); Protein,Urine Negative (Negative); Specific Gravity,Urine 1.015 (1.001-1.035); Urobilinogen,Urine <2.0 mg/dL (<2.0)
[2022-08-18 18:22] LABS: Basophils # (A) 0.05 X 10*3/uL (0.00-0.10); Basophils % (A) 0.8 %; Eosinophils # (A) 0.17 X 10*3/uL (0.04-0.35); Eosinophils % (A) 2.6 %; HCT 40.5 % (37.2-46.3); Immature Grans, Automated 0.3 %; Lymphocytes # (A) 1.15 X 10*3/uL (0.90-5.00); Lymphocytes % (A) 17.7 %; MCH 30.7 pg (27.0-32.0); MCHC 32.1 g/dL (32.0-37.0); MCV 95.7 fL (80.0-97.0); Mean Platelet Volume 10.6 fL (9.5-12.2); Monocytes % (A) 7.7 %; NRBC Per 100 WBC 0 /100 WBCS (0.0-0.0); Neutrophils % (A) 70.9 %; Platelet Count 263 X 10*3/uL (140-440); RBC 4.23 X 10*6/uL (4.10-5.20); RDW 13.2 % (11.5-14.5); WBC 6.49 X 10*3/uL (4.50-10.00)
[2022-08-18 18:32] LABS: % Iron Saturation 23.21 (12.00-45.00); African American GFR (CKD) 41.1 (60.0-200.0); Albumin 3.8 g/dL (3.8-4.9); Albumin/Globulin Ratio 1.52 (1.60-3.17); Anion Gap 11.5 mmol/L (10.00-18.00); BUN/Creat Ratio 22.53 Ratio (12.00-20.00); Blood Urea Nitrogen 33.8 mg/dL (9.0-27.0); Calcium 8.9 mg/dL (8.7-10.3); Carbon Dioxide 22.5 mmol/L (20.0-27.5); Globulin 2.5 g/dL (1.6-3.3); Magnesium 1.9 mg/dL (1.5-2.4); Non-African American GFR(CKD) 35.4 (60.0-200.0); Phosphorus 3.4 mg/dL (2.4-5.1); Potassium 4.2 mmol/L (3.5-5.5); Total Bilirubin 0.2 mg/dL (0.30-1.20); Total Protein 6.3 g/dL (6.2-8.2); Uric Acid 6.7 mg/dL (2.9-7.7)
[2022-08-18 21:41] LABS: Urine Creatinine 58.2 mg/dL (28.0-217.0)
[2022-08-19 15:04] LABS: Free Kappa Lt Chain Qnt, Serum 3.86 mg/dL (0.33-1.94); Free Lambda Lt Chain Qnt, Seru 2.74 mg/dL (0.57-2.63)
== END | disposition home or self-care (01) ==
LOC: LABWHC1 11:28
PROVIDERS: ATTEND Internal Medicine
DX: N18.32 Chronic kidney disease, stage 3b (principal); D63.1 Anemia in chronic kidney disease; E55.9 Vitamin D deficiency, unspecified; N39.0 Urinary tract infection, site not specified; R80.9 Proteinuria, unspecified; E21.3 Hyperparathyroidism, unspecified; M10.9 Gout, unspecified
CPT/HCPCS: 36415; 80053; 81003; 82043; 82306; 82570; 82728; 83540; 83550; 83735; 83883; 83970; 84100; 84550; 85025; 86334

== ENCOUNTER → 2022-08-29 | Outpatient (CLI) | payer MEDICARE | END | disposition home or self-care (01) | LOC: LABWHC1 11:37 | PROVIDERS: ATTEND Family Medicine | DX: R07.9 Chest pain, unspecified (principal) | CPT/HCPCS: 36415; 84484; 93005 ==

== ENCOUNTER → 2022-11-17 | Outpatient (CLI) | payer MEDICARE ==
[2022-11-17 15:21] LABS: Appearance,Urine Cloudy (Clear); Bacteria,Urine Occasional /hpf; Bilirubin,Urine Negative (Negative); Blood,Urine Negative (Negative); Color,Urine Colorless; Glucose,Urine (UA) 4+ (Negative); Ketones,Urine Negative (Negative); Leukocyte Esterase,Urine Negative (Negative); Mucus,Urine Rare /hpf; Nitrite,Urine Negative (Negative); PH, Urine 5.5 (5.0-8.0); Protein,Urine Negative (Negative); Specific Gravity,Urine 1.005 (1.001-1.035); Squamous Epithelial Cell,Urine 1 /hpf (0-4); Urobilinogen,Urine <2.0 mg/dL (<2.0); WBC,Urine <1 /hpf (0-5)
[2022-11-17 22:28] LABS: Basophils # (A) 0.05 X 10*3/uL (0.00-0.10); Basophils % (A) 0.6 %; Eosinophils # (A) 0.17 X 10*3/uL (0.04-0.35); Eosinophils % (A) 2.1 %; HCT 46.6 % (37.2-46.3); HGB 14.5 g/dL (12.0-15.0); Immature Grans, Automated 0.4 %; Lymphocytes # (A) 1.74 X 10*3/uL (0.90-5.00); Lymphocytes % (A) 21.5 %; MCH 30.1 pg (27.0-32.0); MCHC 31.1 g/dL (32.0-37.0); MCV 96.9 fL (80.0-97.0); Mean Platelet Volume 10.6 fL (9.5-12.2); Monocytes # (A) 0.74 X 10*3/uL (0.20-1.00); Monocytes % (A) 9.2 %; NRBC Per 100 WBC 0 /100 WBCS (0.0-0.0); Neutrophils # (A) 5.35 X 10*3/uL (1.80-7.70); Neutrophils % (A) 66.2 %; Platelet Count 336 X 10*3/uL (140-440); RBC 4.81 X 10*6/uL (4.10-5.20); RDW 13.2 % (11.5-14.5); WBC 8.08 X 10*3/uL (4.50-10.00)
[2022-11-17 22:46] LABS: Albumin 4.1 g/dL (3.8-4.9); Albumin/Globulin Ratio 1.95 (1.60-3.17); BUN/Creat Ratio 20.19 Ratio (12.00-20.00); Blood Urea Nitrogen 32.3 mg/dL (9.0-27.0); Calcium 9.4 mg/dL (8.7-10.3); Globulin 2.1 g/dL (1.6-3.3); Magnesium 2.4 mg/dL (1.5-2.4); Non-African American GFR(CKD) 32.8 (60.0-200.0); Phosphorus 4.3 mg/dL (2.4-5.1); Potassium 5.4 mmol/L (3.5-5.5); Total Bilirubin 0.2 mg/dL (0.30-1.20); Total Protein 6.2 g/dL (6.2-8.2)
[2022-11-17 23:38] LABS: % Iron Saturation 18.39 (12.00-45.00)
[2022-11-18 01:25] LABS: Microalbumin Creatinine Ratio <30 mg/g Creat (0-30); Urine Creatinine 24.9 mg/dL (28.0-217.0)
== END | disposition home or self-care (01) ==
LOC: LABWHC1 11:15
PROVIDERS: ATTEND Internal Medicine
DX: E55.9 Vitamin D deficiency, unspecified (principal); N39.0 Urinary tract infection, site not specified; N18.32 Chronic kidney disease, stage 3b; N25.81 Secondary hyperparathyroidism of renal origin; M10.9 Gout, unspecified; D63.1 Anemia in chronic kidney disease; R80.9 Proteinuria, unspecified
CPT/HCPCS: 36415; 80053; 81001; 82043; 82306; 82570; 83540; 83550; 83735; 83970; 84100; 85025

== ENCOUNTER → 2023-03-20 | Outpatient (CLI) | payer MEDICARE ==
[2023-03-20 20:33] LABS: Basophils # (A) 0.04 X 10*3/uL (0.00-0.10); Basophils % (A) 0.6 %; Eosinophils # (A) 0.14 X 10*3/uL (0.04-0.35); Eosinophils % (A) 2.2 %; HCT 46.1 % (37.2-46.3); HGB 14.2 g/dL (12.0-15.0); Immature Grans, Automated 0.2 %; Lymphocytes # (A) 1.39 X 10*3/uL (0.90-5.00); Lymphocytes % (A) 21.6 %; MCH 29.5 pg (27.0-32.0); MCHC 30.8 g/dL (32.0-37.0); MCV 95.6 fL (80.0-97.0); Mean Platelet Volume 10.8 fL (9.5-12.2); Monocytes # (A) 0.57 X 10*3/uL (0.20-1.00); Monocytes % (A) 8.8 %; NRBC Per 100 WBC 0 /100 WBCS (0.0-0.0); Neutrophils % (A) 66.6 %; Platelet Count 278 X 10*3/uL (140-440); RBC 4.82 X 10*6/uL (4.10-5.20); RDW 14.1 % (11.5-14.5); WBC 6.45 X 10*3/uL (4.50-10.00)
[2023-03-20 22:17] LABS: Appearance,Urine Clear (Clear); Bilirubin,Urine Negative (Negative); Blood,Urine Negative (Negative); Color,Urine Yellow (Yellow); Ketones,Urine Negative (Negative); Nitrite,Urine Negative (Negative); PH, Urine 5.5 (5.0-8.0); Specific Gravity,Urine 1.023 (1.001-1.030); Urobilinogen,Urine 0.2 (0.2,1.0)
[2023-03-20 22:53] LABS: % Iron Saturation 24.21 (12.00-45.00); African American GFR (CKD) 36.1 (60.0-200.0); Albumin 4.1 g/dL (3.8-4.9); Albumin/Globulin Ratio 1.98 (1.60-3.17); Anion Gap 11.5 mmol/L (10.00-18.00); BUN/Creat Ratio 15.39 Ratio (12.00-20.00); Blood Urea Nitrogen 25.7 mg/dL (9.0-27.0); Calcium 8.9 mg/dL (8.7-10.3); Carbon Dioxide 23.8 mmol/L (20.0-27.5); Globulin 2.1 g/dL (1.6-3.3); Magnesium 2.2 mg/dL (1.5-2.4); Non-African American GFR(CKD) 31.1 (60.0-200.0); Potassium 5.2 mmol/L (3.5-5.5); Total Bilirubin 0.2 mg/dL (0.30-1.20); Total Protein 6.2 g/dL (6.2-8.2); Uric Acid 5.9 mg/dL (2.9-7.7)
[2023-03-20 23:57] LABS: Microalbumin Creatinine Ratio <30 mg/g Creat (0-30); Urine Creatinine 51.9 mg/dL (28.0-217.0)
== END | disposition home or self-care (01) ==
LOC: LABWHC1 12:30
PROVIDERS: ATTEND Internal Medicine
DX: E55.9 Vitamin D deficiency, unspecified (principal); N18.32 Chronic kidney disease, stage 3b; N25.81 Secondary hyperparathyroidism of renal origin; N39.0 Urinary tract infection, site not specified; D63.1 Anemia in chronic kidney disease; M10.9 Gout, unspecified
CPT/HCPCS: 36415; 80053; 81003; 82043; 82306; 82570; 82728; 83540; 83550; 83735; 84100; 84550; 85025; 86376

== ENCOUNTER → 2023-05-09 | Outpatient (CLI) | payer MEDICARE ==
--- NOTE | 2023-05-10 16:53 | MM ---
Reason for Exam: Screening (asymptomatic). Last mammogram was performed 1 year(s) and 1 month(s) ago. Patient History: Menarche at age 11. First Full-Term at age 33. Late child-bearing (after 30). Postmenopausal. Benign Cyst Aspiration on the left side. Benign Excisional Biopsy on the left side. Sister had breast cancer, age 58. Risk Values: Suad 5 year model risk: 4.1%. NCI Lifetime model risk: 12.8%. Prior Study Comparison: 11/07/2019 Bilateral Screening Mammogram, [facility]. 03/24/2021 Bilateral Screening Mammogram, [facility]. 04/11/2022 Bilateral MG 3D screening mammo w/cad, [facility]. Tissue Density: The breast tissue is almost entirely fat. Findings: Analyzed By CAD. Pattern appears symmetrical and stable. No significant interval change is evident. No suspicious groups of microcalcifications, spiculated or lobular masses, architectural distortion or other secondary signs of malignancy are mammographically apparent. Overall Assessment: Negative, BI-RAD 1 Management: Screening Mammogram of both breasts in 1 year. A negative mammogram report should not preclude additional follow up of suspicious palpable abnormalities. Patient should continue monthly self breast exam. A clinical breast exam by your physician is recommended on an annual basis and results should be correlated with mammographic findings. Electronically signed and approved by: Giuseppe Fried D.O. Radiologis
== END | disposition home or self-care (01) ==
LOC: RADMAMWWP 15:16
PROVIDERS: ATTEND Family Medicine
DX: Z12.31 Encounter for screening mammogram for malignant neoplasm of breast (principal); Z78.0 Asymptomatic menopausal state; Z80.3 Family history of malignant neoplasm of breast
CPT/HCPCS: 77063; 77067

== ENCOUNTER → 2023-05-09 | Outpatient (CLI) | payer MEDICARE ==
--- NOTE | 2023-05-09 20:40 | US ---
EXAMINATION TYPE: US kidneys/renal and bladder DATE OF EXAM: 05/09/2023 COMPARISON: 03/24/2021 CLINICAL INDICATION: Female, 67 years old with history of N18.32 CHRONIC KIDNEY DISEASE, STAGE 3B; ck d 3. Nonprofit Director notes: Limited due to bowel gas and body habitus. EXAM MEASUREMENTS: Right Kidney: 9.7 x 4.3 x 4.2 cm Left Kidney: 9.2 x 3.9 x 3.7 cm Right Kidney: hypoechoic, partially exophytic area lower pole measuring 1.5 x 1.1 x 1.4 cm. Cortical thinning. No hydronephrosis. Left Kidney: cortical thinning. No hydronephrosis. Bladder: anechoic Bilateral Jets seen: no IMPRESSION: 1. No hydronephrosis. Changes of chronic medical renal disease. 2. A 1.5 cm partially exophytic lesion from the lower pole right kidney previously is not well seen. A cyst is suspected. Recommend 6 month follow-up ultrasound to reassess and ensure stability.
== END | disposition home or self-care (01) ==
LOC: RADUSWWP 15:15
PROVIDERS: ATTEND Internal Medicine
DX: N18.32 Chronic kidney disease, stage 3b (principal)
CPT/HCPCS: 76770

== ENCOUNTER → 2023-08-10 | Outpatient (CLI) | payer MEDICARE ==
[2023-08-10 20:59] LABS: Basophils # (A) 0.06 X 10*3/uL (0.00-0.10); Basophils % (A) 0.9 %; Eosinophils # (A) 0.17 X 10*3/uL (0.04-0.35); Eosinophils % (A) 2.5 %; HCT 44.9 % (37.2-46.3); HGB 14.2 d/dL (12.0-15.0); Lymphocytes # (A) 1.26 X 10*3/uL (0.90-5.00); Lymphocytes % (A) 18.6 %; MCH 29.7 pg (27.0-32.0); MCHC 31.6 d/dL (32.0-37.0); MCV 93.9 FL (80.0-97.0); Mean Platelet Volume 10.7 FL (9.5-12.2); Monocytes # (A) 0.62 X 10*3/uL (0.20-1.00); Monocytes % (A) 9.1 %; NRBC Per 100 WBC 0 X 10*3/uL (0.00-0.01); Neutrophils # (A) 4.66 X 10*3/uL (1.80-7.70); Neutrophils % (A) 68.6 %; Platelet Count 300 X 10*3/uL (140-440); RBC 4.78 X 10*6/uL (4.10-5.20); RDW 13.6 % (11.5-14.5); WBC 6.79 X 10*3/uL (4.50-10.00)
[2023-08-10 21:19] LABS: % Iron Saturation 34.15 (12.00-45.00); ALT 18 U/L (8-44); AST 22 U/L (13-35); Albumin 4.1 d/dL (3.8-4.9); Albumin/Globulin Ratio 2.16 Ratio (1.60-3.17); Alkaline Phosphatase 117 U/L (41-126); BUN/Creat Ratio 13.83 Ratio (12.00-20.00); Blood Urea Nitrogen 24.9 mg/dL (9.0-27.0); Calcium 9.1 mg/dL (8.7-10.3); Carbon Dioxide 23.6 mmol/L (21.6-31.8); Chloride 103 mmol/L (96-109); Globulin 1.9 d/dL (1.6-3.3); Glucose 217 mg/dL (70-110); Iron 97 UG/DL (50-170); Magnesium 1.8 mg/dL (1.5-2.4); Phosphorus 3.6 mg/dL (2.4-5.1); Potassium 4.9 mmol/L (3.5-5.5); Sodium 139 mmol/L (135-145); Total Bilirubin 0.4 mg/dL (0.3-1.2); Total Iron Binding Capacity 284 UG/DL (228-460)
== END | disposition home or self-care (01) ==
LOC: LABWHC1 11:24
PROVIDERS: ATTEND Internal Medicine
DX: N25.81 Secondary hyperparathyroidism of renal origin (principal); N18.32 Chronic kidney disease, stage 3b; D63.1 Anemia in chronic kidney disease; N39.0 Urinary tract infection, site not specified; E55.9 Vitamin D deficiency, unspecified; M10.9 Gout, unspecified; R80.9 Proteinuria, unspecified
CPT/HCPCS: 36415; 80053; 82043; 82306; 82570; 82728; 83540; 83550; 83735; 83970; 84100; 84550; 85025

== ENCOUNTER → 2023-11-21 | Outpatient (CLI) | payer MEDICARE ==
[2023-11-21 15:32] LABS: Basophils # (A) 0.04 X 10*3/uL (0.00-0.10); Basophils % (A) 0.5 %; Eosinophils # (A) 0.15 X 10*3/uL (0.04-0.35); Eosinophils % (A) 1.8 %; HCT 43.1 % (37.2-46.3); HGB 13.8 g/dL (12.0-15.0); Lymphocytes # (A) 1.54 X 10*3/uL (0.90-5.00); Lymphocytes % (A) 18.6 %; MCV 93.7 FL (80.0-97.0); Mean Platelet Volume 10.9 FL (9.5-12.2); Monocytes # (A) 0.82 X 10*3/uL (0.20-1.00); Monocytes % (A) 9.9 %; NRBC Per 100 WBC 0 X 10*3/uL (0.00-0.01); Neutrophils # (A) 5.71 X 10*3/uL (1.80-7.70); Neutrophils % (A) 68.8 %; Platelet Count 308 X 10*3/uL (140-440); RDW 12.8 % (11.5-14.5); WBC 8.29 X 10*3/uL (4.50-10.00)
[2023-11-21 16:04] LABS: % Iron Saturation 25.08 (12.00-45.00); ALT 16 U/L (8-44); AST 19 U/L (13-35); Alkaline Phosphatase 111 U/L (41-126); Blood Urea Nitrogen 22.5 mg/dL (9.0-27.0); Calcium 9.6 mg/dL (8.7-10.3); Carbon Dioxide 24.2 mmol/L (21.6-31.8); Chloride 104 mmol/L (96-109); Glucose 103 mg/dL (70-110); Iron 79 UG/DL (50-170); Magnesium 1.8 mg/dL (1.5-2.4); Phosphorus 4.1 mg/dL (2.4-5.1); Potassium 4.8 mmol/L (3.5-5.5); Sodium 141 mmol/L (135-145); Total Bilirubin 0.3 mg/dL (0.3-1.2); Total Iron Binding Capacity 315 UG/DL (228-460); Uric Acid 6.6 mg/dL (2.9-7.7)
[2023-11-21 20:19] LABS: Appearance,Urine Clear (Clear); Bilirubin,Urine Negative (Negative); Blood,Urine Negative (Negative); Color,Urine Yellow (Yellow); Ketones,Urine Negative (Negative); Nitrite,Urine Negative (Negative); PH, Urine 5.5; Specific Gravity,Urine 1.009 (1.001-1.030); Urobilinogen,Urine 0.2 E.U./DL
[2023-11-21 20:53] LABS: Microalbumin Creatinine Ratio <34 mg/g Cr (0-30); Urine Creatinine 35.6 mg/dL (28.0-217.0)
== END | disposition home or self-care (01) ==
LOC: LABWHC1 11:09
PROVIDERS: ATTEND Internal Medicine
DX: N18.32 Chronic kidney disease, stage 3b (principal); D63.1 Anemia in chronic kidney disease; N25.81 Secondary hyperparathyroidism of renal origin; E55.9 Vitamin D deficiency, unspecified; N39.0 Urinary tract infection, site not specified; M10.9 Gout, unspecified; R80.9 Proteinuria, unspecified
CPT/HCPCS: 36415; 80053; 81003; 82043; 82306; 82570; 82728; 83540; 83550; 83735; 83970; 84100; 84550; 85025

== ENCOUNTER → 2024-02-12 | Outpatient (CLI) | payer MEDICARE ==
--- NOTE | 2024-02-12 13:04 | US ---
EXAMINATION TYPE: US kidneys/renal and bladder DATE OF EXAM: 02/12/2024 COMPARISON: 05/09/2023 CLINICAL INDICATION: Female, 68 years old with history of N28.1 RENAL CYST; follow up renal cyst EXAM MEASUREMENTS: Right Kidney: 8.5 x 4.0 x 3.4 cm Left Kidney: 9.0 x 4.4 x 4.0 cm *Technical limitations due to overlying bowel gas Right Kidney: thin renal cortex. Lobulated contour. A simple appearing stable cystic lesion lower lana e = 1.3 x 1.4 x 1.6cm Left Kidney: thin renal cortex. No evidence of hydronephrosis Bladder: not fully distended Bilateral Jets seen: no IMPRESSION: Stable cyst right inferior kidney
== END | disposition home or self-care (01) ==
LOC: RADUSWWP 09:09
PROVIDERS: ATTEND Urology
DX: N28.1 Cyst of kidney, acquired (principal)
CPT/HCPCS: 76770

== ENCOUNTER → 2024-04-05 | Outpatient (CLI) | payer MEDICARE ==
[2024-04-05 15:09] LABS: Basophils # (A) 0.04 X 10*3/uL (0.00-0.10); Basophils % (A) 0.7 %; Eosinophils # (A) 0.19 X 10*3/uL (0.04-0.35); Eosinophils % (A) 3.3 %; HCT 39.6 % (37.2-46.3); HGB 12.4 g/dL (12.0-15.0); Lymphocytes # (A) 1.29 X 10*3/uL (0.90-5.00); Lymphocytes % (A) 22.2 %; MCH 30.8 pg (27.0-32.0); MCHC 31.3 g/dL (32.0-37.0); MCV 98.3 FL (80.0-97.0); Mean Platelet Volume 10.8 FL (9.5-12.2); Monocytes # (A) 0.56 X 10*3/uL (0.20-1.00); Monocytes % (A) 9.6 %; NRBC Per 100 WBC 0 X 10*3/uL (0.00-0.01); Neutrophils # (A) 3.71 X 10*3/uL (1.80-7.70); Neutrophils % (A) 63.9 %; Platelet Count 267 X 10*3/uL (140-440); RBC 4.03 X 10*6/uL (4.10-5.20); RDW 13.2 % (11.5-14.5); WBC 5.81 X 10*3/uL (4.50-10.00)
[2024-04-05 15:42] LABS: % Iron Saturation 29.93 (12.00-45.00); ALT 19 U/L (8-44); AST 22 U/L (13-35); Albumin 4.2 g/dL (3.8-4.9); Alkaline Phosphatase 99 U/L (41-126); BUN/Creat Ratio 21.43 Ratio (12.00-20.00); Carbon Dioxide 23.4 mmol/L (21.6-31.8); Chloride 109 mmol/L (96-109); Glucose 154 mg/dL (70-110); Iron 91 UG/DL (50-170); Magnesium 1.9 mg/dL (1.5-2.4); Phosphorus 3.5 mg/dL (2.4-5.1); Potassium 4.6 mmol/L (3.5-5.5); Sodium 143 mmol/L (135-145); Total Bilirubin 0.2 mg/dL (0.3-1.2); Total Iron Binding Capacity 304 UG/DL (228-460); Total Protein 6.2 g/dL (6.2-8.2); Uric Acid 7.1 mg/dL (2.9-7.7)
[2024-04-05 16:51] LABS: Free Kappa Lt Chain Qnt, Serum 3.24 mg/dL (0.33-1.94); Free Lambda Lt Chain Qnt, Seru 2.52 mg/dL (0.57-2.63)
[2024-04-05 19:51] LABS: Appearance,Urine Clear (Clear); Bilirubin,Urine Negative (Negative); Blood,Urine Negative (Negative); Color,Urine Yellow (Yellow); Ketones,Urine Negative (Negative); Nitrite,Urine Negative (Negative); PH, Urine 5.5; Specific Gravity,Urine 1.017 (1.001-1.030); Urobilinogen,Urine 0.2 E.U./DL
[2024-04-05 20:07] LABS: Bacteria,Urine None Seen (None Seen)
[2024-04-05 21:20] LABS: Microalbumin Creatinine Ratio <15 mg/g Cr (0-30); Urine Creatinine 79.7 mg/dL (28.0-217.0)
== END | disposition home or self-care (01) ==
LOC: LABWHC1 11:27
PROVIDERS: ATTEND Internal Medicine
DX: E55.9 Vitamin D deficiency, unspecified (principal); N39.0 Urinary tract infection, site not specified; N25.81 Secondary hyperparathyroidism of renal origin; M10.9 Gout, unspecified; N18.32 Chronic kidney disease, stage 3b; D63.1 Anemia in chronic kidney disease; R80.9 Proteinuria, unspecified
CPT/HCPCS: 36415; 80053; 81001; 82043; 82306; 82570; 82728; 83540; 83550; 83735; 83883; 83970; 84100; 84166; 84550; 85025; 86334

== ENCOUNTER → 2024-07-12 | Outpatient (CLI) | payer MEDICARE ==
--- NOTE | 2024-07-29 18:38 | MM ---
Reason for Exam: Screening (asymptomatic). Last mammogram was performed 1 year(s) and 2 month(s) ago. Patient History: Menarche at age 11. First Full-Term at age 33. Late child-bearing (after 30). Postmenopausal. Benign Cyst Aspiration on the left side. Benign Excisional Biopsy on the left side. Sister had breast cancer, age 58. Risk Values: Suad 5 year model risk: 4.1%. NCI Lifetime model risk: 12.2%. Prior Study Comparison: 03/24/2021 Bilateral Screening Mammogram, [facility]. 04/11/2022 Bilateral MG 3D screening mammo w/cad, [facility]. 05/09/2023 Bilateral MG 3D screening mammo w/cad, [facility]. Tissue Density: The breasts are almost entirely fatty. Findings: Analyzed By CAD. There is no suspicious group of microcalcifications or new suspicious mass in either breast. Overall Assessment: Negative, BI-RAD 1 Management: Screening Mammogram of both breasts in 1 year. See note below in regards to patient's increased 5 year Suad score. Patient should continue monthly self-breast exams. A clinical breast exam by your physician is recommended on an annual basis. This exam should not preclude additional follow-up of suspicious palpable abnormalities. Note on Suad scores and lifetime risk: 1. A Suad score greater than 3% is considered moderate risk. If this is the case, consider specialist referral to assess eligibility for a risk reducing agent. 2. If overall lifetime risk for the development of breast cancer is 20% or higher, the patient may qualify for future screening with alternating mammogram and breast MRI. Electronically signed and approved by: Nica Flaherty M.D. Radiologist
== END | disposition home or self-care (01) ==
LOC: RADMAMWWP 11:30
PROVIDERS: ATTEND Family Medicine
DX: Z78.0 Asymptomatic menopausal state (principal); Z80.3 Family history of malignant neoplasm of breast; R92.313 Mammographic fatty tissue density, bilateral breasts
CPT/HCPCS: 77063; 77067

== ENCOUNTER → 2024-08-26 | Outpatient (CLI) | payer MEDICARE ==
[2024-08-26 14:59] LABS: Appearance,Urine Turbid (Clear); Bilirubin,Urine Negative (Negative); Blood,Urine Moderate (Negative); Color,Urine Yellow (Yellow); Ketones,Urine Negative (Negative); Nitrite,Urine Positive (Negative); Specific Gravity,Urine 1.011 (1.001-1.030); Urobilinogen,Urine 0.2 E.U./DL
[2024-08-26 16:00] LABS: HGB 12.6 g/dL (12.0-15.0); MCH 31.3 pg (27.0-32.0); MCHC 31.5 g/dL (32.0-37.0); MCV 99.3 FL (80.0-97.0); Mean Platelet Volume 11.4 FL (9.5-12.2); NRBC Per 100 WBC 0 X 10*3/uL (0.00-0.01); Platelet Count 272 X 10*3/uL (140-440); RBC 4.03 X 10*6/uL (4.10-5.20); RDW 12.8 % (11.5-14.5); WBC 8.88 X 10*3/uL (4.50-10.00)
[2024-08-26 16:27] LABS: Bacteria,Urine 2+ (None Seen)
[2024-08-26 16:43] LABS: % Iron Saturation 27.27 (12.00-45.00); Iron 78 UG/DL (50-170); Magnesium 2.2 mg/dL (1.5-2.4); Phosphorus 3.6 mg/dL (2.4-5.1); Total Iron Binding Capacity 286 UG/DL (228-460); Uric Acid 6.9 mg/dL (2.9-7.7)
[2024-08-26 16:49] LABS: ALT 25 U/L (8-44); AST 25 U/L (13-35); Albumin/Globulin Ratio 2.11 Ratio (1.60-3.17); Alkaline Phosphatase 100 U/L (41-126); BUN/Creat Ratio 22.31 Ratio (12.00-20.00); Blood Urea Nitrogen 35.7 mg/dL (9.0-27.0); Carbon Dioxide 23.4 mmol/L (21.6-31.8); Chloride 105 mmol/L (96-109); Globulin 1.9 g/dL (1.6-3.3); Glucose 139 mg/dL (70-110); Sodium 140 mmol/L (135-145); Total Bilirubin <0.2 mg/dL (0.3-1.2); Total Protein 5.9 g/dL (6.2-8.2)
[2024-08-26 18:40] LABS: Urine Creatinine 49.4 mg/dL (28.0-217.0)
== END | disposition home or self-care (01) ==
LOC: LABWHC1 10:57
PROVIDERS: ATTEND Internal Medicine
DX: N18.32 Chronic kidney disease, stage 3b (principal); D64.9 Anemia, unspecified; N39.0 Urinary tract infection, site not specified; R80.9 Proteinuria, unspecified; E55.9 Vitamin D deficiency, unspecified; N25.81 Secondary hyperparathyroidism of renal origin; M10.9 Gout, unspecified
CPT/HCPCS: 36415; 80053; 81001; 82043; 82306; 82570; 82728; 83540; 83550; 83735; 83970; 84100; 84550; 85027

== ENCOUNTER → 2024-11-04 | Outpatient (CLI) | payer MEDICARE ==
--- NOTE | 2024-11-04 15:33 | XR ---
EXAMINATION TYPE: XR chest 2V DATE OF EXAM: 11/04/2024 3:19 PM COMPARISON: 06/28/2017 CLINICAL INDICATION: Female, 69 years old with history of R05.3 CHRONIC COUGH; [facility] TECHNIQUE: XR chest 2V Frontal and lateral views of the chest. FINDINGS: Lungs/Pleura: There is no evidence of pleural effusion, focal consolidation, or pneumothorax. Pulmonary vascularity: Unremarkable. Heart/mediastinum: Cardiomediastinal silhouette is unremarkable. Musculoskeletal: No acute osseous pathology. IMPRESSION: No acute cardiopulmonary disease/process. [facility], , 11/04/2024 3:31 PM
== END | disposition home or self-care (01) ==
LOC: RADXRMAIN 15:03
PROVIDERS: ATTEND Otolaryngology
DX: R05.3 Chronic cough (principal)
CPT/HCPCS: 71046

== ENCOUNTER → 2024-11-21 | Outpatient (CLI) | payer MEDICARE ==
--- NOTE | 2024-11-21 12:33 | US ---
EXAMINATION TYPE: US kidneys/renal and bladder DATE OF EXAM: 11/21/2024 COMPARISON: US 2023 CLINICAL INDICATION: Female, 69 years old with history of N18.32 CHRONIC KIDNEY DISEASE, STAGE 3B; TECHNIQUE: Grayscale imaging of the bilateral kidneys and urinary bladder: FINDINGS: EXAM MEASUREMENTS: Right Kidney: 8.3 x 4.7 x 4.1 cm Left Kidney: 8.5 x 4.1 x 3.9 cm Right Kidney: small in size, cortical thinning, inferior pole limited by overlying bowel gas Left Kidney: small in size, cortical thinning Bladder: wnl Bilateral Jets seen: no There is no evidence for hydronephrosis at this point in time. Cortical medullary differentiation is maintained bilaterally. Cortical thinning of both kidneys. No nephrolithiasis is seen. No masses ar e identified. Previously seen right lower pole cyst is not well-visualized probably due to overlying bowel gas. The urinary bladder is anechoic. IMPRESSION: 1. No hydronephrosis or nephrolithiasis. 2. Findings suggestive of bilateral chronic medical renal disease. [facility], , 11/21/2024 12:30 PM
== END | disposition home or self-care (01) ==
LOC: RADUSWWP 11:58
PROVIDERS: ATTEND Internal Medicine
DX: N18.32 Chronic kidney disease, stage 3b (principal)
CPT/HCPCS: 76770

== ENCOUNTER → 2024-12-19 | Outpatient (CLI) | payer MEDICARE ==
[2024-12-19 18:42] LABS: HCT 42.2 % (37.2-46.3); HGB 13.1 g/dL (12.0-15.0); MCH 29.9 pg (27.0-32.0); MCV 96.3 FL (80.0-97.0); Mean Platelet Volume 11.4 FL (9.5-12.2); NRBC Per 100 WBC 0 X 10*3/uL (0.00-0.01); Platelet Count 288 X 10*3/uL (140-440); RBC 4.38 X 10*6/uL (4.10-5.20); RDW 13.1 % (11.5-14.5); WBC 8.69 X 10*3/uL (4.50-10.00)
[2024-12-19 18:54] LABS: Urine Creatinine 44.6 mg/dL (28.0-217.0)
[2024-12-19 19:39] LABS: % Iron Saturation 29.43 (12.00-45.00); Blood Urea Nitrogen 41.1 mg/dL (9.0-27.0); Glucose 100 mg/dL (70-110); Iron 93 UG/DL (50-170); Total Iron Binding Capacity 316 UG/DL (228-460); Uric Acid 6.4 mg/dL (2.9-7.7)
[2024-12-19 19:40] LABS: ALT 31 U/L (8-44); AST 32 U/L (13-35); Albumin 4.2 g/dL (3.8-4.9); Albumin/Globulin Ratio 1.91 Ratio (1.60-3.17); Alkaline Phosphatase 95 U/L (41-126); Chloride 108 mmol/L (96-109); Globulin 2.2 g/dL (1.6-3.3); Potassium 5.1 mmol/L (3.5-5.5); Sodium 140 mmol/L (135-145); Total Bilirubin 0.3 mg/dL (0.3-1.2); Total Protein 6.4 g/dL (6.2-8.2)
[2024-12-19 19:47] LABS: Appearance,Urine Clear (Clear); Bilirubin,Urine Negative (Negative); Blood,Urine Negative (Negative); Color,Urine Yellow (Yellow); Ketones,Urine Negative (Negative); Nitrite,Urine Negative (Negative); PH, Urine 5.5; Specific Gravity,Urine 1.012 (1.001-1.030); Urobilinogen,Urine 0.2 E.U./DL
== END | disposition home or self-care (01) ==
LOC: LABWHC1 12:57
PROVIDERS: ATTEND Internal Medicine
DX: N18.32 Chronic kidney disease, stage 3b (principal); D63.1 Anemia in chronic kidney disease; N39.0 Urinary tract infection, site not specified; E55.9 Vitamin D deficiency, unspecified; N25.81 Secondary hyperparathyroidism of renal origin; M10.9 Gout, unspecified; R80.9 Proteinuria, unspecified
CPT/HCPCS: 36415; 80053; 81003; 82043; 82306; 82570; 82728; 83540; 83550; 83735; 83970; 84100; 84550; 85027

== ENCOUNTER → 2025-01-21 | Outpatient (CLI) | payer MEDICARE ==
--- NOTE | 2025-01-21 12:55 | XR ---
EXAMINATION TYPE: XR chest 2V DATE OF EXAM: 01/21/2025 12:48 PM COMPARISON: Chest radiographs from 11/04/2024 CLINICAL INDICATION: Female, 69 years old with history of R05.9 Cough R06.02 SOB; H TECHNIQUE: XR chest 2V Frontal and lateral views of the chest. FINDINGS: Lungs/Pleura: There is no evidence of pleural effusion, focal consolidation, or pneumothorax. Pulmonary vascularity: Unremarkable. Heart/mediastinum: Cardiomediastinal silhouette is unremarkable. Musculoskeletal: No acute osseous pathology. IMPRESSION: No acute cardiopulmonary disease/process. [facility], , 01/21/2025 12:52 PM
== END | disposition home or self-care (01) ==
LOC: RADXRMAIN 12:29
PROVIDERS: ATTEND Family Medicine
DX: R05.9 Cough, unspecified (principal); R06.02 Shortness of breath
CPT/HCPCS: 71046